=== PATIENT | female | born 1985 | race Caucasian/White ===

== ENCOUNTER 2023-12-03 20:10 | Emergency (ER) | payer OTHER, SELFPAY ==
[2023-12-03 20:12] VITALS: BP 151/114
[2023-12-03 20:37] VITALS: BP 147/99
[2023-12-03] MEDS: ATIVAN 1 MG IV (21:04)
[2023-12-03] MEDS: NSS 1000 IV (21:04)
[2023-12-03] MEDS: PROTONIX IV 80 MG IV (21:04)
[2023-12-03 21:09] VITALS: BP 147/99; BMI 32.3
[2023-12-03 21:15] LABS: % Basophils 0.4 % (0-2); % Immature Granulocytes 0.4 % (0-0.5); % Lymphocytes 7.2 % (20.5-51.1); % Monocytes 3.5 % (1.7-9.3); % Neutrophils 88.5 % (42.2-75.2); Absolute Immature Granulocytes 0.1 10^3/uL (0-0.05); Absolute Lymphocytes 0.8 10^3/uL (1.2-3.4); Absolute Monocytes 0.4 10^3/uL (0.1-0.6); Absolute Neutrophils 9.9 10^3/uL (1.4-6.5); Hematocrit 38.5 % (37.0-47.0); Hemoglobin 14.3 g/dL (12.0-16.0); Mean Corp Hgb Conc. 37.1 g/dL (33.0-37.0); Mean Corpuscular Hgb 31.6 pg (27.0-31.0); Mean Platelet Volume 8.8 fL (7.4-10.4); Nucleated Red Blood Cells % 0 %; Platelet Count 214 10^3/uL (130-400); Red Blood Cell Count 4.53 10^6/uL (4.20-5.40); Red Cell Dist. Width 13.2 % (11.5-14.5); White Blood Cell Count 11.2 10^3/uL (4.8-10.8)
[2023-12-03 21:31] LABS: AST (SGOT) 41 U/L (14-36); Alkaline Phosphatase 127 U/L (38-126); Blood Urea Nitrogen 14 mg/dl (7-17); Calcium 9.3 mg/dl (8.4-10.2); Carbon Dioxide 25 mmol/L (22-30); Chloride 99 mmol/L (98-107); Estimated Creatinine Clearance > 125 ml/min; Glucose 120 mg/dl (70-99); Lipase 46 U/L (23-300); Potassium 3.5 mmol/L (3.5-5.1); Sodium 135 mmol/L (135-145); Total Bilirubin 1.4 mg/dl (0.2-1.3); Total Protein 7.7 g/dl (6.3-8.2); eGFR > 60.00
[2023-12-03 21:40] LABS: ALT (SGPT) 37 U/L (0-35)
[2023-12-03 23:05] VITALS: BP 137/85
--- NOTE | 2023-12-03 23:12 | EDRN ---
Patient resting comfortably with call gomez in reach, states slightly nauseated still but other lynn ok.
--- NOTE | 2023-12-03 23:56 | EDRN ---
Patient concerned about her meds shes taking and missing them because she can't keep things down, patient has drank water since here and requesting more. Dr. Zoila ramirez
[2023-12-04] VITALS: BP 132/83
--- NOTE | 2023-12-04 00:04 | ED.GENMED ---
History of Present Illness
General
Chief Complaint: Withdrawal Symptoms
Source: patient
Exam Limitations: none
Time Seen by Provider: 12/03/23 20:32
Travel History
Have you had any contact with someone who has COVID-19?: No
Do you have any symptoms of coronavirus? Fever > 100 degrees, chills, cough, shortness of breath, sore throat, loss of taste or smell, muscle aches, or headache?: No
History of Present Illness
History of Present Illness:
38-year-old female who has a history of alcoholism who presents after she noted blood streaks in her vomitus. She will states she has been little bit tremulous that she is not had drink of vodka since yesterday. The patient states she tried
drinking little's morning because of vomiting was unable to. Patient admits that she was clean for a few months but began drinking again. She does have a history of GI bleeding in the past and was admitted. No chest pain. No fevers.
Past History
Past History
ED Past Medical History: Asthma, Hypothyroidism and Psychiatric (Anxiety, depression, alcohol abuse)
ED Past Surgical History: None
Social History
Tobacco: Former smoker
Alcohol: Chronic alcoholic
Drug: None
Personal: Single
Living: with family
Employment: Employed
Phy Exam
Physical Exam
Physical Exam:
CONSTITUTIONAL Patient alert and oriented to person, place and time. Well-appearing. Vital signs reviewed.
HEAD atraumatic, normocephalic.
EYES eyelids normal to inspection, Pupils equally round and reactive to light, Extraocular muscles intact, Conjunctiva normal, Sclera normal.
NECK normal range of motion, Trachea midline, no jugular venous distention.
RESPIRATORY CHEST No respiratory distress noted, Chest expansion equal, Bilateral breath sounds clear.
CARDIOVASCULAR regular and tachycardic
ABDOMEN abdomen nontender, Bowel sounds normal. No distention.
BACK normal inspection, no obvious deformities
UPPER EXTREMITY range of motion normal, Motor strength normal, no cyanosis, no edema.
LOWER EXTREMITY range of motion normal, Motor strength normal, no cyanosis, no edema.
NEURO Speech normal, No focal motor deficits, [place] coma scale 15, Memory normal, Cranial Nerves intact to screening exam. Mildly tremulous
SKIN skin warm, dry, and normal in color.
PSYCHIATRIC patient oriented to person place and time, Normal affect.
Course
Orders/Labs/Results
Orders:
Orders
12/03/23 20:46
Pantoprazole [Protonix IV] 80 mg IV NOW STA
12/03/23 20:47
0.9% Sodium Chloride 1000 ml [Nss] 1,000 ml IV BOLUS
Lorazepam [Ativan] 1 mg IV NOW STA
12/03/23 20:59
Complete Blood Count/With Diff Urgent
Comprehensive Metabolic Panel Urgent
Lipase Urgent
Abnormal Lab Results
12/03/23
20:59
WBC 11.2 H 10^3/uL
(4.8-10.8)
MCH 31.6 H pg
(27.0-31.0)
MCHC 37.1 H g/dL
(33.0-37.0)
Abs Immat Gran (auto) 0.1 H 10^3/uL
(0-0.05)
Absolute Neuts (auto) 9.9 H 10^3/uL
(1.4-6.5)
Absolute Lymphs (auto) 0.8 L 10^3/uL
(1.2-3.4)
Neutrophils % 88.5 H %
(42.2-75.2)
Lymphocytes % 7.2 L %
(20.5-51.1)
Glucose 120 H mg/dl
(70-99)
Total Bilirubin 1.4 H mg/dl
(0.2-1.3)
AST 41 H U/L
(14-36)
ALT 37 H U/L
(0-35)
Alkaline Phosphatase 127 H U/L
(38-126)
12/03/23 20:59
12/03/23 20:59
Vital Signs
Initial and Last Documented VS:
Initial Vital Signs
Temp Pulse Resp BP Pulse Ox
98.2 F 110 20 151/114 99
12/03/23 20:12 12/03/23 20:12 12/03/23 20:12 12/03/23 20:12 12/03/23 20:12
Last Documented Vital Signs
Temp Pulse Resp BP Pulse Ox
98.2 F 76 23 137/85 95
12/03/23 20:12 12/03/23 23:15 12/03/23 23:15 12/03/23 23:05 12/03/23 23:15
MDM/Problems Addressed
MDM/Problems Addressed:
Alcohol withdrawal, alcoholic gastritis, vomiting
*Pulse Oximetry
Patient hypoxic: no
*Mastic Man Interpretation
Rate: tachycardiac
Interpretation: abnormal
Rhythm: sinus
*Critical Care Note
Total Time (30-74mins, 75-104mins- exclusive of procedures): Not Applicable
Data Reviewed
Review of Other/Old Records Reveals: Records (Previous endoscopy reviewed from July 2023) and Discharge Summary (Discharge summary reviewed from July 2023)
Source: patient
Further Testing Considered But Not Given:
Consider CT but abdomen benign
Patient Management
Escalation/DeEscalation of care consider admission/obs:
Patient reassessed. Heart rate has normalized. Blood pressure normalized. Patient appears well. I do think she is safe for discharge and outpatient follow-up. The patient has had no vomiting. Will treat with PPI twice daily, antiemetics as
needed and Ativan for withdrawal symptoms. She will follow-up with her PCP and will follow-up with alcohol meetings. I strongly advised no driving or operating heavy machinery while on benzodiazepines. Patient agrees.
ED Attending Note
-
Portions of this chart may have been created with voice recognition software.� Occasional wrong word or��sound alike� substitutions may have occurred due to the inherent limitations of voice recognition software.
Discharge Plan
Departure
Patient Disposition: Home (Routine Discharge)
Date of Disposition: 12/04/23
Time of Disposition: 00:14
Patient with high blood pressure during this ER visit?: No
Discharge Problem:
Acute alcoholic gastritis, Alcohol withdrawal
Instructions: Gastritis, Alcohol Withdrawal (DC)
Prescriptions:
New
pantoprazole [Protonix] 40 mg tablet,delayed release (DR/EC)
40 mg PO BID Qty: 60 0RF
Rx Instructions:
Please take 30 minutes prior to eating or drinking anything in the morning.
ondansetron 4 mg tablet,disintegrating
4 mg PO Q8H PRN (Reason: nausea and vomiting) Qty: 20 0RF
lorazepam 1 mg tablet
1 mg PO TID Qty: 18 0RF
Rx Instructions:
1mg TID x 3 days, then 1mg BID x 3 days, then 1mg daily x 3 days
No Action
levothyroxine 50 MCG tablet
50 mcg PO DAILY AT 0700
sertraline 50 MG tablet
100 mg PO DAILY
Patient Comments:
07/07/23- patient has been using old bottle and know she suppose to be on 25mg daily but she wants to be on 50mg daily and has been taking 50mg daily at home
hydroxyzine HCl 50 mg Tablet
50 mg PO TIDPRN PRN (Reason: anxiety)
Patient Comments:
07/07/23-patient has really old bottle in room, date is wiped off
trazodone 100 mg Tablet
50 - 100 mg PO HSPRN PRN (Reason: sleep)
Patient Comments:
07/07/23-patient has old bottle in room and has one tablet in it, she said she has an older bottle at home with more tablets in it
olanzapine 5 mg Tablet
5 mg PO DAILY
atomoxetine 60 mg Capsule
60 mg PO DAILY
Referrals:
Lea Dumont PA-C [Family Provider] -
Stand Alone Forms: Return to Work
Activity Restrictions/Additional Instructions:
Please see your doctor in the next 2 days for follow-up and reevaluation. Please drink plenty of fluids. Please do not drink alcohol. In addition, do not drive or operate machinery while taking benzodiazepines. Return immediately for shaking,
seizures, change in mental status, hallucinations, intractable vomiting or any other concerns.
Interventions
Interventions:
*Risk Screen - Suicide Last Done: 12/03/23 20:12
*General Assessment Last Done: 12/03/23 20:12
*Neglect/Abuse Screening Last Done: 12/03/23 20:12
ED- Fall Risk Assessment Last Done: 12/03/23 22:13
ED- Neurological Assessment Last Done: 12/03/23 22:13
ED-Psychological Assessment Last Done: 12/03/23 22:13
Discharge Date and Time
Print Language: AZERI
== END 2023-12-04 00:44 | disposition home or self-care (01) ==
LOC: EMR 20:10
PROVIDERS: EMERGENCY PHYSICIAN Emergency Medicine; FAMILY PHYSICIAN Physician Assistant Medical
DX: K29.21 Alcoholic gastritis with bleeding (principal); F10.239 Alcohol dependence with withdrawal, unspecified; R00.0 Tachycardia, unspecified; R11.0 Nausea; E03.9 Hypothyroidism, unspecified; F32.A Depression, unspecified; F41.9 Anxiety disorder, unspecified; J45.909 Unspecified asthma, uncomplicated; Z87.891 Personal history of nicotine dependence
CPT/HCPCS: 99284; 96374; 96375; 96361; 80053; 83690; 85025

== ENCOUNTER 2024-01-07 03:00 | Inpatient (IN) | payer OTHER, SELFPAY ==
[2024-01-06 22:22] VITALS: BP 184/131
--- NOTE | 2024-01-06 22:49 | ED.GENMED ---
History of Present Illness
General
Chief Complaint: Alcohol Problem
Source: patient
Exam Limitations: none
Time Seen by Provider: 01/06/24 22:32
Travel History
Have you had any contact with someone who has COVID-19?: No
Do you have any symptoms of coronavirus? Fever > 100 degrees, chills, cough, shortness of breath, sore throat, loss of taste or smell, muscle aches, or headache?: No
History of Present Illness
History of Present Illness:
This is a 38 year old female that comes in with c/o withdraw symptoms. States that her last drink was at 9am today. States that she drinks Vodka about a bottle daily. States that she know has cold sweats. nausea, vomiting, abd pain, and diarrhea.
State that she is also dizzy. Denies any fever, chest pain, SOB, headache, urinary burning.
Past History
Past History
ED Past Medical History: Asthma, Hypothyroidism and Psychiatric (Anxiety, depression, alcohol abuse, PTSD< ADHD)
ED Past Surgical History: Other (Skin graft right hand. )
Social History
Tobacco: Vaping (Former Cig smoker)
Alcohol: Chronic alcoholic (Daily bottle of Vodka)
Drug: None
Personal:
Living: with family
Employment: Employed
Review of Systems
Review of Systems
All Other Systems: ROS reviewed and negative except as documented in HPI and ROS
Constitutional: Reports other (Cold sweats); Denies fever
EENT: Reports no symptoms
Respiratory: Reports no symptoms; Denies cough or trouble breathing
Cardiac: Reports no symptoms; Denies chest pain
ABD/GI: Reports abdominal pain, nausea, vomiting and diarrhea
: Reports no symptoms; Denies dysuria, frequency or urgency
Musculoskeletal: Reports no symptoms
Skin: Reports no symptoms
Neurological: Reports dizzy; Denies headache
Psychiatric: Reports no symptoms
Phy Exam
General Physical Exam
General Presentation: no apparent distress
General age: appears stated age
General Skin: warm and dry
General Habitus: normal
General Mental: alert
General Hydration: appears well hydrated
ENT Exam
ENT Exam: TM's normal, pharynx normal and neck supple
Eye Exam
Eye Exam: EOMI
Cardiovascular Exam
Cardiovascular Exam: regular rate/rhythm, no edema, no murmur and normal peripheral pulses
Pulmonary Exam
Pulmonary Exam: lungs clear, no respiratory distress, no rales, chest non tender, no crackles, no rhonchi, no wheezing and no cough
Gastrointestinal Exam
Gastrointestinal Exam: soft, no organomegaly, no pulsatile mass, non distended, tender (Generalized tenderness with palpation) and other (Hypoactive bowel sounds)
Musculoskeletal Exam
Musculoskeletal Exam: full ROM and no edema
Skin Exam
Skin Exam: normal color, warm/dry, no rash and no petechia
Psychiatric Exam
Psychiatric Exam: anxious
Scores
Withdrawal Assessment of Alcohol
Withdrawal Assessment Completed?: Yes
Nausea and Vomiting: Constant nausea, frequent dry heaves and vomiting
Tactile Disturbances: None
Tremor: Not visible, but can be felt fingertip to fingertip
Auditory Disturbances: Not present
Paroxysmal Sweats: No sweat visible
Visual Disturbances: Not present
Anxiety: Moderately anxious, or guarded, so anxiety is inferred
Headache, Fullness in Head: Not present
Agitation: Normal activity
Orientation and clouding of sensorium: Oriented and can do serial additions
Total CIWA Score: 12
Alcohol Withdrawal Medication Recommendation: Equal to MSAS Score 5-7. Lorazepam 1mg IV or PO NOW & re-assess q2hrs
Course
Orders/Labs/Results
Orders:
Orders
01/06/24 22:47
0.9% Sodium Chloride 1000 ml [Nss] 1,000 ml IV BOLUS
Ondansetron Injectable [Zofran] 4 mg IV NOW STA
Test Result ONCE
01/06/24 22:49
Lorazepam [Ativan] 0.5 mg IV NOW STA
01/06/24 22:50
Pantoprazole [Protonix IV] 40 mg IV NOW STA
01/06/24 23:02
Alcohol Urgent
Complete Blood Count/With Diff Urgent
Comprehensive Metabolic Panel Urgent
HCG, Serum Qualitative Screen Urgent
Lipase Urgent
01/06/24 23:18
Add On- LAB Urgent
Tests Added?: Alcohol
01/06/24 23:31
Diphenhydramine [Benadryl] 25 mg IV NOW STA
01/07/24 00:14
Prochlorperazine [Compazine] 5 mg IV NOW STA
01/07/24 00:29
Lorazepam [Ativan] 1 mg IV NOW STA
01/07/24 00:31
Lorazepam [Ativan] 2 mg .ROUTE .STK-MED ONE
Lorazepam [Ativan] 2 mg .ROUTE .STK-MED ONE
01/07/24 02:30
Admit/Transfer Patient As Directed
Co-Sign Provider:
Level of Care: Inpatient admission
Assign to:: Telemetry
Physician / Group: Larry
Diagnosis: Alcohol Withdrawal
Reason for Telemetry: Arrhythmia
Date to Stop Telemetry: 01/10/24
Time to Stop Telemetry: 11:00
Reason for Hospitalization: Alcohol Withdrawal
Expected length of stay greater than two midnights?: Yes
ELOS- Estimated Length of Stay in days: 2
I certify the patient meets the requirements for IP care: Yes
01/07/24 02:31
Code Status As Directed
Resuscitation Status: Full Code
01/10/24 11:00
DC Protocol for Telemetry ONCE
Abnormal Lab Results
01/06/24
23:02
MCH 32.4 H pg
(27.0-31.0)
Absolute Lymphs (auto) 0.7 L 10^3/uL
(1.2-3.4)
Immature Gran % 0.6 H %
(0-0.5)
Neutrophils % 78.9 H %
(42.2-75.2)
Lymphocytes % 12.9 L %
(20.5-51.1)
Glucose 136 H mg/dl
(70-99)
AST 122 H U/L
(14-36)
ALT 69 H U/L
(0-35)
Alkaline Phosphatase 131 H U/L
(38-126)
Total Protein 8.5 H g/dl
(6.3-8.2)
Albumin 5.4 H g/dl
(3.5-5.0)
01/06/24 23:02
01/06/24 23:02
glucose nonfasting. AST/ALT elevation (chronic alcoholic), alk phos elevation. Total protein slightly elevated. Albumin slightly elevated. Lipase normal at 72, HCG negative. Alcohol level negative.
Vital Signs
Initial and Last Documented VS:
Initial Vital Signs
Temp Pulse Resp BP Pulse Ox
99 F 118 26 184/131 98
01/06/24 22:22 01/06/24 22:22 01/06/24 22:22 01/06/24 22:22 01/06/24 22:22
Last Documented Vital Signs
Temp Pulse Resp BP Pulse Ox
99 F 92 22 184/131 98
01/06/24 22:22 01/07/24 02:30 01/07/24 02:30 01/06/24 22:22 01/06/24 22:22
MDM/Problems Addressed
Differential Diagnosis Includes:
Alcohol withdraw, Pancreatitis
MDM/Problems Addressed:
This is a 38 year old female that comes in with c/o alcohol withdraw. States that her last drink was at 9am today. States that she has had cold sweats and been vomiting.
Will check labs, IV fluids and antiemetics.
Back into see patient. Patient continues with vomiting. Will admit for alcohol withdraw. Patient was seen by Nelly and she only wants to do out patient treatment for her alcohol abuse. Hospitalist notified about admission.
Chronic conditions affecting care:
Chronic alcoholic,
Acute Exacerbation and/or Progression of Chronic Illness:
Alcohol abuse
*Pulse Oximetry
Patient hypoxic: no
*EKG
Interpreted by ED Provider?: NA
Rate: EKG- N/A
*Critical Care Note
Total Time (30-74mins, 75-104mins- exclusive of procedures): Not Applicable
ED Attending Note
-
Portions of this chart may have been created with voice recognition software.� Occasional wrong word or��sound alike� substitutions may have occurred due to the inherent limitations of voice recognition software.
Discharge Plan
Departure
Patient Disposition: Admit
Date of Disposition: 01/07/24
Time of Disposition: 01:37
Admit to: Telemetry
Presentation/result/management discussed w/ accepting MD/DO: Hospitalist
Patient with high blood pressure during this ER visit?: Yes
Condition: Good
Covid-19: Not Applicable
Discharge Problem:
Alcohol withdrawal, Nausea & vomiting
Interventions
Interventions:
*Risk Screen - Suicide Last Done: 01/06/24 22:22
*General Assessment Last Done: 01/06/24 22:22
*Neglect/Abuse Screening Last Done: 01/06/24 22:22
ED- Fall Risk Assessment Last Done: 01/06/24 23:32
ED- Neurological Assessment Last Done: 01/06/24 23:32
ED-Psychological Assessment Last Done: 01/06/24 23:32
[2024-01-06] MEDS: NSS 1000 IV (23:08)
[2024-01-06] MEDS: ZOFRAN 4 MG IV (23:09)
[2024-01-06 23:11] LABS: % Basophils 0.7 % (0-2); % Eosinophils 0.2 % (0-6); % Immature Granulocytes 0.6 % (0-0.5); % Lymphocytes 12.9 % (20.5-51.1); % Monocytes 6.7 % (1.7-9.3); % Neutrophils 78.9 % (42.2-75.2); Absolute Lymphocytes 0.7 10^3/uL (1.2-3.4); Absolute Monocytes 0.4 10^3/uL (0.1-0.6); Absolute Neutrophils 4.2 10^3/uL (1.4-6.5); Hematocrit 39.2 % (37.0-47.0); Hemoglobin 14.5 g/dL (12.0-16.0); Mean Corpuscular Hgb 32.4 pg (27.0-31.0); Mean Corpuscular Volume 87.7 fL (81.0-99.0); Mean Platelet Volume 9.2 fL (7.4-10.4); Nucleated Red Blood Cells % 0 %; Platelet Count 210 10^3/uL (130-400); Red Blood Cell Count 4.47 10^6/uL (4.20-5.40); Red Cell Dist. Width 13.9 % (11.5-14.5); White Blood Cell Count 5.3 10^3/uL (4.8-10.8)
[2024-01-06] MEDS: PROTONIX IV 40 MG IV (23:14)
[2024-01-06] MEDS: ATIVAN 0.5 MG IV (23:14)
[2024-01-06 23:20] LABS: HCG, Serum Qualitative Screen Negative
[2024-01-06 23:24] LABS: ALT (SGPT) 69 U/L (0-35); AST (SGOT) 122 U/L (14-36); Albumin 5.4 g/dl (3.5-5.0); Alkaline Phosphatase 131 U/L (38-126); Blood Urea Nitrogen 10 mg/dl (7-17); Calcium 10.1 mg/dl (8.4-10.2); Carbon Dioxide 23 mmol/L (22-30); Chloride 101 mmol/L (98-107); Glucose 136 mg/dl (70-99); Lipase 72 U/L (23-300); Potassium 3.5 mmol/L (3.5-5.1); Sodium 142 mmol/L (135-145); Total Bilirubin 0.9 mg/dl (0.2-1.3); Total Protein 8.5 g/dl (6.3-8.2); eGFR > 60.00
[2024-01-06] MEDS: BENADRYL 25 MG IV (23:38)
[2024-01-06 23:47] LABS: Alcohol None Detected
[2024-01-07] VITALS (15 sets, daily range): BP systolic 128–153; BP diastolic 83–110; PULSE 111–122; BMI 32.4
[2024-01-07] MEDS: COMPAZINE 5 MG IV (00:17)
[2024-01-07] MEDS: ATIVAN 1 MG IV ×2 (00:32→06:30)
--- NOTE | 2024-01-07 02:34 | HPS.HSE ---
Family Physician
-
Family Physician: [facility] UNKNOWN - PT NOT
Chief Complaint
-
N/V
History of Present Illness
Patient is a 38y F with PMH significant for anxiety / depression, asthma and hypothyroidism who presents to ED complaining of N/V. Patient states that she started with N/V yesterday and it has been persistent since that time. She has some mild
abdominal discomfort which she attributes to the frequent vomiting. She denies any bloody or blood-streaked emesis. Patient reports diaphoresis, tremulousness, lightheadedness.
Patient notes that she drinks about 1 bottle of vodka daily. Her last drink was around 9 AM this morning.
Medical History
Past Medical History
Past Medical History: Reports Other
Additional Past Medical History:
Anxiety / Depression
ADHD
PTSD
Asthma
Hypothyroidism
Past Surgical History: Reports Other
Additional Past Surgical History:
R hand surgery skin graft
[place] teeth
L arm surgery
Uvula biopsy
Social History
Tobacco: Vaping
Alcohol: Daily (Half to 1 bottle daily for 9 years. 1 bottle / day for the past 2 weeks.)
Family History
Family History: Not pertinent
Allergies / Home Medications
Allergies reflects when Allergies were last updated in [facility].
Home Medications with original date entered in [facility]
Allergy/Medication List:
Allergies
Allergy/AdvReac Type Severity Reaction Status Date / Time
No Known Allergies Allergy Verified 01/13/22 17:32
Home Medications
levothyroxine 50 mcg tablet 50 mcg PO DAILY AT 0700 Thyroid 12/02/21
sertraline 50 mg tablet 100 mg PO DAILY Mental Health/Anxiety 12/02/21
trazodone 100 mg tablet 150 mg PO HSPRN PRN sleep 07/07/23
atomoxetine 60 mg capsule 60 mg PO DAILY 12/03/23
olanzapine 5 mg tablet 5 mg PO DAILY 12/03/23
Review of Systems
-
History Source: Patient
A 12 point ROS was completed and negative except as noted: Yes
Constitutional: Reports Fatigue; Denies Fever or Chills
EENT: Denies Sore Throat
Respiratory: Denies Cough or Trouble Breathing
Cardiac: Denies Chest Pain or Palpitations
Abdomen/GI: Reports Abdominal Pain, Nausea and Vomiting; Denies Diarrhea, Constipated, Bloody Stools or Black Stools
: Denies Dysuria or Frequency
Musculoskeletal: Denies Joint Pain or Edema
Neurological: Reports Dizzy and Headache
Physical Exam
Vital Signs
Vital Signs
Temp Pulse Resp BP Pulse Ox
99 F 92 22 184/131 98
01/06/24 22:22 01/07/24 02:30 01/07/24 02:30 01/06/24 22:22 01/06/24 22:22
Physical Exam
General: Other (38y F in no acute distress.)
HEENT: Moist mucous membranes, PERRLA and Other (Flushed appearance.)
Respiratory: Clear; No Wheezes, Rales or Rhonchi
Cardiac: S1/S2 and Regular Rhythm; No Murmur
GI: Soft, Non Distended, Normal Bowel Sounds and Other (Mild epigastric tenderness.)
Musculoskeletal: No Clubbing, No Cyanosis and No Edema
Neuro: AO x 3
Laboratory Results
-
01/06/24 23:02
01/06/24 23:02
Laboratory Results
Total Bilirubin 0.9 mg/dl (0.2-1.3) 01/06/24 23:02
AST 122 U/L (14-36) H 01/06/24 23:02
ALT 69 U/L (0-35) H 01/06/24 23:02
Alkaline Phosphatase 131 U/L (38-126) H 01/06/24 23:02
Lipase 72 U/L (23-300) 01/06/24 23:02
Impression/Plan
-
A/P: Patient is a 38y F with PMH significant for anxiety / depression, hypothyroidism and alcohol use disorder who presents to ED complaining of N/V x 24 hours.
Alcohol Use Disorder
Alcohol Withdrawal
N/V secondary to the above
Abnormal LFTs secondary to the above
- Admit for further evaluation and treatment.
- Normal lipase.
- IVF support, antiemetics, etc.
- Follow for symptoms of withdrawal and treat with PRN BZDs.
- Thiamine, folate, MVI replacement.
- Follow for clinical improvement.
Anxiety / Depression
PTSD
ADHD
- Continue current psychotropic med regimen.
- Recommend follow-up with formal psychotherapy as an outpatient.
Hypothyroidism
- Continue current T4 replacement.
- Update TFTs.
Elevated BP
- Likely secondary to acute illness / withdrawal.
- Hydralazine PRN for now.
- Follow for improvement with control of withdrawal symptoms.
- Add standing antihypertensive medication if needed.
DVT Prophylaxis: SCDs
Code Status: Full
[2024-01-07] MEDS: D5/0.9% SODIUM CHLORIDE 1000 IV ×3 (05:55→20:30)
[2024-01-07] MEDS: SYNTHROID 50 MCG PO (05:55)
[2024-01-07] MEDS: NSS (PRESERVATIVE FREE) 0.5 ML IV (06:31)
[2024-01-07 06:35] LABS: Hematocrit 35.4 % (37.0-47.0); Hemoglobin 12.9 g/dL (12.0-16.0); Mean Corp Hgb Conc. 36.4 g/dL (33.0-37.0); Mean Corpuscular Hgb 32.7 pg (27.0-31.0); Mean Corpuscular Volume 89.6 fL (81.0-99.0); Mean Platelet Volume 9.3 fL (7.4-10.4); Platelet Count 181 10^3/uL (130-400); Red Blood Cell Count 3.95 10^6/uL (4.20-5.40); Red Cell Dist. Width 13.9 % (11.5-14.5); Urine Albumin Trace (Neg - Trace); Urine Bilirubin Negative (Negative); Urine Character Clear (Clear); Urine Color Yellow; Urine Glucose Negative (Negative); Urine Ketone Trace (Negative); Urine Leukocyte Trace (Negative); Urine Nitrite Negative (Negative); Urine Occult Blood 1+ (Negative); Urine Urobilinogen 1+ (Neg - 1+); White Blood Cell Count 6.8 10^3/uL (4.8-10.8)
[2024-01-07 06:48] LABS: AST (SGOT) 96 U/L (14-36); Albumin 4.7 g/dl (3.5-5.0); Alkaline Phosphatase 99 U/L (38-126); Amphetamines Negative (Negative); Barbiturates Negative (Negative); Benzodiazepines Positive (Negative); Blood Urea Nitrogen 9 mg/dl (7-17); Buprenorphine Negative (Negative); Calcium 9.2 mg/dl (8.4-10.2); Carbon Dioxide 24 mmol/L (22-30); Chloride 100 mmol/L (98-107); Cocaine Negative (Negative); Direct Bilirubin 0.4 mg/dl (0.0-0.4); Glucose 106 mg/dl (70-99); Magnesium 1.1 mg/dl (1.6-2.3); Marijuana Negative (Negative); Methadone Negative (Negative); Methamphetamines Negative (Negative); Opiates Negative (Negative); Phencyclidine Negative (Negative); Phosphorus 3.4 mg/dl (2.5-4.5); Potassium 3.6 mmol/L (3.5-5.1); Sodium 137 mmol/L (135-145); Total Bilirubin 1.1 mg/dl (0.2-1.3); Tricyclic Antidepressants Negative (Negative); eGFR > 60.00
[2024-01-07 06:58] LABS: ALT (SGPT) 62 U/L (0-35)
[2024-01-07 07:03] LABS: Fentanyl, Urine Negative (Negative)
[2024-01-07 07:13] LABS: TSH Reflex To Free T4 1.53 uIU/ml (0.47-4.68)
[2024-01-07 07:26] LABS: Urine Amorphous Seen; Urine Squamous Cell 26-30 /LPF (Few)
[2024-01-07] MEDS: ZYPREXA 5 MG PO (08:46)
[2024-01-07] MEDS: FOLVITE 1 MG PO (08:46)
[2024-01-07] MEDS: THIAMINE INJECTION 200 MG IV ×2 (08:46→20:30)
[2024-01-07] MEDS: ZOLOFT 100 MG PO (08:46)
--- NOTE | 2024-01-07 10:47 | W.PN.UPDATE ---
Update Note
Progress Note Update
Nonbillable note
Lab/images/notes reviewed
patient examined briefly
Nausea and vomiting -does report having history of alcoholic gastritis. Patient said had EGD in the hospital although no records on chart. Denies of having history of bleed/PUD. Maintain on empiric IV Protonix. Nausea improved and advancing diet
to regular. Continue symptomatic care.
Alcohol withdrawal -drinks 1 bottle of vodka every day. Last drink yesterday morning. Currently not having any tremor/tachycardia/hypertension. Continue on MSAS/Ativan protocol. MSAS score remains low. Got total 2 and half milligram of Ativan
overnight. Patient have undergone alcohol rehab in the past and stated that [facility] called last night and plan to do an outpatient alcohol rehab follow-up. Case management to confirm plan.
[2024-01-07] MEDS: PROTONIX IV 40 MG IV (12:12)
--- NOTE | 2024-01-07 13:47 | CM ---
Cm met with patient in room. Patient confirmed demographics. Patient lives alone. Patient is agreeable to outpatient D and A treatment. CM spoke with [facility] and they will meet with patient today to offer resources. CM will await updated from [facility].
--- NOTE | 2024-01-07 16:20 | CM ---
Rafael from [facility] in to see patient today.
[2024-01-07] MEDS: ZOFRAN 4 MG IV (18:09)
[2024-01-07] MEDS: ATIVAN 1 MG PO (20:34)
[2024-01-07] MEDS: DESYREL 150 MG PO (22:32)
[2024-01-08] VITALS (7 sets, daily range): BP systolic 118–153; BP diastolic 83–106; PULSE 76–112; BMI 32.5
[2024-01-08] MEDS: SYNTHROID 50 MCG PO (05:39)
[2024-01-08 06:08] LABS: Hematocrit 33.2 % (37.0-47.0); Mean Corp Hgb Conc. 36.1 g/dL (33.0-37.0); Mean Corpuscular Hgb 32.5 pg (27.0-31.0); Mean Platelet Volume 9.6 fL (7.4-10.4); Platelet Count 147 10^3/uL (130-400); Red Blood Cell Count 3.69 10^6/uL (4.20-5.40); Red Cell Dist. Width 13.6 % (11.5-14.5); White Blood Cell Count 4.1 10^3/uL (4.8-10.8)
[2024-01-08 06:45] LABS: Blood Urea Nitrogen 5 mg/dl (7-17); Calcium 8.3 mg/dl (8.4-10.2); Carbon Dioxide 27 mmol/L (22-30); Chloride 101 mmol/L (98-107); Estimated Creatinine Clearance > 125 ml/min; Glucose 97 mg/dl (70-99); Magnesium 1.2 mg/dl (1.6-2.3); Potassium 2.9 mmol/L (3.5-5.1); Sodium 137 mmol/L (135-145); eGFR > 60.00
[2024-01-08] MEDS: D5/0.9% SODIUM CHLORIDE 1000 IV (08:49)
[2024-01-08] MEDS: PROTONIX IV 40 MG IV (08:49)
[2024-01-08] MEDS: ZOLOFT 100 MG PO (08:50)
[2024-01-08] MEDS: ZYPREXA 5 MG PO (08:50)
[2024-01-08] MEDS: FOLVITE 1 MG PO (08:50)
[2024-01-08] MEDS: THIAMINE INJECTION 200 MG IV ×2 (08:50→20:43)
[2024-01-08] MEDS: NSS (PRESERVATIVE FREE) 10 ML IV (08:50)
--- NOTE | 2024-01-08 08:59 | W.PN.HOSP.TC ---
Today's Communication/Plan
-
Continue alcohol withdrawal. Replete electrolytes. Psych evaluation.
Assessment / Plan
Assessment / Plan
Physical exam:
General: Well Developed, Well Nourished and No Apparent Distress
HEENT: Normocephalic, Atraumatic and Moist Mucous Membranes
Respiratory: Clear to Auscultation; Negative Wheezes, Rales or Rhonchi
Cardiac: Regular Rhythm and S1/S2
GI: Soft, Nontender and Nondistended
Musculoskeletal: No Clubbing, No Cyanosis and No Edema
Neuro: Awake, Alert and Oriented
Psych: Calm
A/P:
Alcohol Use Disorder
Alcohol Withdrawal
N/V secondary to the above
Abnormal LFTs secondary to the above
- Admit for further evaluation and treatment.
- Normal lipase.
- IVF support, antiemetics, etc.
- Follow for symptoms of withdrawal and treat with PRN BZDs.
- Thiamine, folate, MVI replacement.
- Follow for clinical improvement.
Hypokalemia
Replete IV and oral
Trend in a.m.
Hypomagnesemia
Replete 4 g of magnesium sulfate today IV.
Check mag in a.m.
Alcoholic gastritis
PPI
Continue regular diet
Evaluate for symptoms
Consider outpatient GI referral
Anxiety / Depression
PTSD
ADHD
- Continue current psychotropic med regimen.
- Recommend follow-up with formal psychotherapy as an outpatient.
-Patient tells me that she wants psychiatry to see her while in the hospital since she has been on a waiting list for quite some time as outpatient and feels she needs some help sooner.
Hypothyroidism
- Continue current T4 replacement.
-TSH 1.53
Elevated BP
- Likely secondary to acute illness / withdrawal.
- Hydralazine PRN for now.
- Follow for improvement with control of withdrawal symptoms.
- Add standing antihypertensive medication if needed.
DVT Prophylaxis: SCDs
Code Status: Full
Anticipated Discharge: 24 - 48 hours
Subjective/Interval History
-
Date of Service: January 08, 2024
Patient has less tremors, no nausea, afebrile.
Objective Data
-
Labs:
Laboratory Results
01/08/24
05:07
WBC 4.1 L
Hgb 12.0
Hct 33.2 L
Plt Count 147
Sodium 137
Potassium 2.9 L
Chloride 101
Carbon Dioxide 27
BUN 5 L
Creatinine 0.5 L
Glucose 97
Calcium 8.3 L
Vital Signs:
Vital Signs
Temp Pulse Resp BP Pulse Ox
98.9 F 78 16 118/85 97
01/08/24 07:36 01/08/24 07:36 01/08/24 07:36 01/08/24 07:36 01/08/24 07:36
I&O
01/07/24 01/08/24 01/09/24
06:59 06:59 06:59
Intake Total 3360 / 3360
Balance 3360 / 3360
[2024-01-08] MEDS: REFRESH CELLUVISC GEL 1 DROPS OPHTH (11:31)
[2024-01-08] MEDS: ATARAX 100 MG PO (12:27)
[2024-01-08] MEDS: FLEXERIL 5 MG PO ×2 (12:28→20:42)
--- NOTE | 2024-01-08 15:26 | CS.PSYCHR ---
Consult Summary - Psychiatry
-
Pt is a 38 yo female with PMH of asthma and hypothyroidism who presented to ED complaining of persistent N/V onset the day before admission, as well as diaphoresis, tremulousness, lightheadedness.
Patient reported she drinks about 1 bottle of vodka daily for the past couple weeks, with the last drink the morning prior to admission. Pt seen sitting up in bed, cooperative, answering questions, in no acute distress. She c/o low
motivation/energy. Pt states she has been on Zoloft for about 8 years, no other antidepressant. Pt states she was in a dual dx/rehab facility from Jul 2023 to Sep 2023, was prescribed medications for possible Bipolar d/o, but did not follow up
with outpatient treatment. Pt states Saba Jaramillo is helping her connect to treatment, possibly at [facility]. Pt denies recent paresh, denies SI.
PMH: as above
Psych Hx: depression, on Zoloft for approx 8 years. Reportedly diagnosed with PTSD and ADHD. Prescribed Zoloft, Trazodone, Strattera, Zyprexa, Vistaril as needed
Dual dx/rehab Jul 2023 to Sep 2023
SH: pt lives alone, has children age 6 and 9, noted with her on weekends. Reported daily alcohol use
MSE: alert, oriented, calm, cooperative, with good eye contact. No agitation. Speech coherent, thought clear, no signs of psychosis. Mood reportedly dysphoric, affect appears stable. Denies SI. Insight limited to fair
Imp: Unspecified Depressive d/o
Alcohol Use d/o
Rec: Outpatient dual dx treatment when medically cleared
Continue current psych meds; pt was given education on additional medication options when medically stable/ out of immediate risk of alcohol withdrawal
will follow
[2024-01-08] MEDS: D5/0.9% SODIUM CHLORIDE IV (16:01)
--- NOTE | 2024-01-08 16:15 | CM ---
Case management following for d/c planning
Alcohol withdrawal
Psych evaluation today
Spoke with Rafael from [facility] - was given outpatient rehab resources
Plan - anticipate home with outpatient services when medially ready
[2024-01-08] MEDS: MAGNESIUM SULFATE 100 IV (16:20)
[2024-01-08] MEDS: KCL 270 MEQ IV (16:22)
[2024-01-08] MEDS: KCL 40 MEQ PO ×2 (16:28→17:49)
[2024-01-08] MEDS: DESYREL 150 MG PO (20:47)
[2024-01-09 03:10] VITALS: BP 135/95
[2024-01-09] MEDS: SYNTHROID 50 MCG PO (05:43)
[2024-01-09 06:00] VITALS: BMI 32.6
[2024-01-09 07:14] LABS: Hematocrit 34.3 % (37.0-47.0); Hemoglobin 12.3 g/dL (12.0-16.0); Mean Corp Hgb Conc. 35.9 g/dL (33.0-37.0); Mean Platelet Volume 9.5 fL (7.4-10.4); Platelet Count 150 10^3/uL (130-400); Red Blood Cell Count 3.73 10^6/uL (4.20-5.40); Red Cell Dist. Width 13.7 % (11.5-14.5); White Blood Cell Count 4.8 10^3/uL (4.8-10.8)
[2024-01-09 07:30] VITALS: BP 155/97
[2024-01-09] MEDS: NSS (PRESERVATIVE FREE) 10 ML IV (07:41)
[2024-01-09] MEDS: THIAMINE INJECTION 200 MG IV (07:41)
[2024-01-09] MEDS: PROTONIX IV 40 MG IV (07:41)
[2024-01-09] MEDS: FOLVITE 1 MG PO (07:42)
[2024-01-09] MEDS: ZYPREXA 5 MG PO (07:42)
[2024-01-09] MEDS: ZOLOFT 100 MG PO (07:42)
[2024-01-09 07:48] LABS: ALT (SGPT) 48 U/L (0-35); AST (SGOT) 63 U/L (14-36); Albumin 4.1 g/dl (3.5-5.0); Alkaline Phosphatase 84 U/L (38-126); Blood Urea Nitrogen 5 mg/dl (7-17); Calcium 8.5 mg/dl (8.4-10.2); Carbon Dioxide 25 mmol/L (22-30); Chloride 105 mmol/L (98-107); Estimated Creatinine Clearance > 125 ml/min; Glucose 96 mg/dl (70-99); Magnesium 2.2 mg/dl (1.6-2.3); Potassium 3.7 mmol/L (3.5-5.1); Sodium 138 mmol/L (135-145); Total Bilirubin 0.9 mg/dl (0.2-1.3); Total Protein 6.6 g/dl (6.3-8.2); eGFR > 60.00
[2024-01-09] MEDS: FLEXERIL 5 MG PO (07:52)
--- NOTE | 2024-01-09 08:16 | W.PN.HOSP.TC ---
Today's Communication/Plan
-
Discharge planning today.
Assessment / Plan
Assessment / Plan
Physical exam:
General: Well Developed, Well Nourished and No Apparent Distress
HEENT: Normocephalic, Atraumatic and Moist Mucous Membranes
Respiratory: Clear to Auscultation; Negative Wheezes, Rales or Rhonchi
Cardiac: Regular Rhythm and S1/S2
GI: Soft, Nontender and Nondistended
Musculoskeletal: No Clubbing, No Cyanosis and No Edema
Neuro: Awake, Alert and Oriented
Psych: Calm
A/P:
Alcohol Use Disorder
Alcohol Withdrawal
N/V secondary to the above
Abnormal LFTs secondary to the above
- Normal lipase.
- IVF support, antiemetics, etc.
- Follow for symptoms of withdrawal and treat with PRN BZDs.
- Thiamine, folate, MVI replacement.
- Follow for clinical improvement. Patient ready for discharge today
Hypokalemia
Replete IV and oral
Trend in a.m.
Hypomagnesemia
Replete 4 g of magnesium sulfate today IV.
Check mag in a.m.
Alcoholic gastritis
PPI
Continue regular diet
Evaluate for symptoms
Consider outpatient GI referral
Anxiety / Depression
PTSD
ADHD
- Continue current psychotropic med regimen.
- Recommend follow-up with formal psychotherapy as an outpatient.
-Patient tells me that she wants psychiatry to see her while in the hospital since she has been on a waiting list for quite some time as outpatient and feels she needs some help sooner. Psychiatry consult appreciated.
Hypothyroidism
- Continue current T4 replacement.
-TSH 1.53
Elevated BP
- Likely secondary to acute illness / withdrawal.
- Hydralazine PRN for now.
- Follow for improvement with control of withdrawal symptoms.
- Add standing antihypertensive medication if needed.
DVT Prophylaxis: SCDs
Code Status: Full
Anticipated Discharge: Today
Subjective/Interval History
-
Date of Service: January 09, 2024
No new complaints.
Objective Data
-
Labs:
Laboratory Results
01/09/24
06:37
WBC 4.8
Hgb 12.3
Hct 34.3 L
Plt Count 150
Sodium 138
Potassium 3.7 D
Chloride 105
Carbon Dioxide 25
BUN 5 L
Creatinine 0.5 L
Glucose 96
Calcium 8.5
Total Bilirubin 0.9
AST 63 H
ALT 48 H
Alkaline Phosphatase 84
Vital Signs:
Vital Signs
Temp Pulse Resp BP Pulse Ox
98.3 F 89 18 155/97 95
01/09/24 07:30 01/09/24 07:30 01/09/24 07:30 01/09/24 07:30 01/09/24 07:30
I&O
01/08/24 01/09/24 01/10/24
06:59 06:59 06:59
Intake Total 3360 / 3360 3840 / 3840
Balance 3360 / 3360 3840 / 3840
--- NOTE | 2024-01-09 11:13 | W.PN.UPDATE ---
Update Note
Progress Note Update
Patient seen at bedside, chart reviewed, discussed with staff. Patient reports doing okay today, no withdrawal symptoms reported. She tells me she is not sleeping well. She did take Trazodone last night but does not feel this had any benefit. She
does report having symptoms of intermittent insomnia at home and Trazodone has been helpful but she does not take all the time. Her dose is currently 150mg and a lower dose could be more helpful for sleep. Patient has received information for [facility] and is planning to see as OP once medically stable. She tells me 'I miss the high of being manic where I get things done and now I have no motivation and hate myself for it'. She states she is not crying and does not feel depressed but
doesn't feel any motivation. She has been taking Zyprexa in AM which could be causing daytime sedation leading to lack of motivation. She asks about Wellbutrin which in my opinion is not the best option given her ETOH abuse and risk for withdrawal
currently. I do believe a medication adjustment may be possible but not necessarily in the context of a medical hospitalization. Dual diagnosis treatment, either inpatient or outpatient would be most beneficial at this time. I would lower the dose
of Trazodone to see if this offers a better benefit for sleep.
Impression/Plan: Unspecified depressive disorder; Alcohol use disorder - MSAS protocol in place, will reduce Trazodone to 100mg PRN for sleep, change Zyprexa to HS rather than in AM, psych to follow
[2024-01-09 11:30] VITALS: BP 135/94; BP 137/91; BP 143/88; PULSE 64; PULSE 67; PULSE 74
--- NOTE | 2024-01-09 11:30 | W.DCSUMMARY ---
Discharge Summary
Discharge Data
Date of Admission: 01/07/24
Date of Discharge: 01/09/24
-
Pending Results: No
Hospital Course
Patient 38 years old female with history of alcohol use disorder presented to the hospital with alcoholic gastritis and alcohol withdrawal. Patient was placed on alcohol withdrawal protocol. Patient did well and requested to go home since she does
not feel she is actively withdrawing at the moment and has not required much of benzodiazepines either. She was seen by psychiatry during this hospital stay by patient request. She had some hypokalemia and hypomagnesemia and her electrolytes were
replaced accordingly. Patient otherwise hemodynamically stable. She is asymptomatic. She is going to be discharged in stable condition today.
Discharge duration: 32 minutes
Discharge Plan
-
Patient Disposition: Home (Routine Discharge)
Discharge Diagnosis/Procedures: Alcohol use disorder. Alcohol withdrawal. Depression. Hypokalemia. Hypomagnesemia. Gastritis.
Diet: Low Cholesterol
Activity: As tolerated
Driving Restrictions: As prior to admission
Blood Work: Please PCP to order CBC, CMP, magnesium within 1 week
Stand Alone Forms: Return to Work
Referrals:
Primary care, provider [Other] (See less than 1 week)
Prescriptions:
New
pantoprazole [Protonix] 40 mg tablet,delayed release (DR/EC)
40 mg PO DAILY Qty: 30 0RF
Continued
levothyroxine 50 MCG tablet
50 mcg PO DAILY AT 0700
sertraline 50 MG tablet
100 mg PO DAILY
Patient Comments:
07/07/23- patient has been using old bottle and know she suppose to be on 25mg daily but she wants to be on 50mg daily and has been taking 50mg daily at home
olanzapine 5 mg Tablet
5 mg PO DAILY
atomoxetine 60 mg Capsule
60 mg PO DAILY
gabapentin 600 mg tablet
600 mg PO TID PRN (Reason: mild pain)
norethindrone ac-eth estradiol [Junel 1.5/30 (21)] 1.5-30 mg-mcg tablet
1 tab PO DAILY
methocarbamol 750 mg tablet
1,500 mg PO BID PRN (Reason: mild-moderate pain)
hydroxyzine pamoate 50 mg capsule
100 mg PO BID PRN (Reason: anxiety) Qty: 14 0RF
Changed
trazodone 100 mg Tablet
100 mg PO HSPRN PRN (Reason: sleep) Qty: 0 0RF
Patient Comments:
07/07/23-patient has old bottle in room and has one tablet in it, she said she has an older bottle at home with more tablets in it
Discharge Orders:
Discharge Patient (As Directed); Ordered 01/09/24
Ordered By: Juan Diego Lloyd
Discharge Date and Time
Discharge Date/Time: 01/09/24 12:20
Print Language: ISRAELI
--- NOTE | 2024-01-09 12:18 | PTCARENOTE ---
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 Work note printed. Patient offered wheelchair but she declined. Patient left floor ambulating with steady gait.
--- NOTE | 2024-01-09 12:23 | CM ---
Pt for discharge today
Has ride home
Will follow up with outpatient alcohol rehab
Plan - home no needs
== END 2024-01-09 12:20 | disposition home or self-care (01) | DRG 897 ==
LOC: 3 WEST ACU 03:00
PROVIDERS: Clinical Nurse Specialist Family Health; Hospitalist; ADMITTING PHYSICIAN Hospitalist; ATTENDING PHYSICIAN Hospitalist; CONSULT PHYSICIAN Psychiatry & Neurology Psychiatry; EMERGENCY PHYSICIAN Emergency Medicine
DX: F10.139 Alcohol abuse with withdrawal, unspecified (principal); F32.A Depression, unspecified; F41.9 Anxiety disorder, unspecified; E03.9 Hypothyroidism, unspecified; J45.909 Unspecified asthma, uncomplicated; F43.10 Post-traumatic stress disorder, unspecified; F90.9 Attention-deficit hyperactivity disorder, unspecified type; F17.290 Nicotine dependence, other tobacco product, uncomplicated; E83.42 Hypomagnesemia; E87.6 Hypokalemia; K29.20 Alcoholic gastritis without bleeding; Z79.899 Other long term (current) drug therapy
CPT/HCPCS: 80048; 80053; 80306; 80307; 81003; 81015; 82077; 82248; 83690; 83735; 84100; 84443; 84703; 85025; 85027; 93005; 96361; 96374; 96375; 96376; 99284

== ENCOUNTER 2024-01-19 11:56 | Emergency (ER) | payer OTHER, SELFPAY ==
[2024-01-19 11:59] VITALS: BP 131/107
[2024-01-19] MEDS: NSS 1000 IV (12:46)
[2024-01-19 12:54] LABS: % Basophils 0.6 % (0-2); % Eosinophils 0.1 % (0-6); % Immature Granulocytes 0.4 % (0-0.5); % Lymphocytes 6.9 % (20.5-51.1); % Monocytes 1.6 % (1.7-9.3); % Neutrophils 90.4 % (42.2-75.2); Absolute Basophils 0.1 10^3/uL (0-0.2); Absolute Immature Granulocytes 0.1 10^3/uL (0-0.05); Absolute Lymphocytes 0.8 10^3/uL (1.2-3.4); Absolute Monocytes 0.2 10^3/uL (0.1-0.6); Absolute Neutrophils 10.9 10^3/uL (1.4-6.5); Hematocrit 44.2 % (37.0-47.0); Hemoglobin 16.4 g/dL (12.0-16.0); Mean Corp Hgb Conc. 37.1 g/dL (33.0-37.0); Mean Corpuscular Hgb 32.8 pg (27.0-31.0); Mean Corpuscular Volume 88.4 fL (81.0-99.0); Mean Platelet Volume 8.8 fL (7.4-10.4); Nucleated Red Blood Cells % 0 %; Platelet Count 324 10^3/uL (130-400); Red Cell Dist. Width 13.8 % (11.5-14.5)
[2024-01-19 12:55] LABS: Venous Blood Gas B.E. -5.2 mmol/L (-4 to +4); Venous Blood Gas HCO3 18.2 mmol/L (22-27); Venous Blood Gas O2 Sat % 99.1 %; Venous Blood Gas pCO2 30 mmHg (35-48); Venous Blood Gas pH 7.39 (7.32-7.43); Venous Blood Gas pO2 109 mmHg (30-50)
[2024-01-19 13:00] VITALS: BP 156/115
[2024-01-19 13:09] LABS: HCG, Serum Qualitative Screen Negative
[2024-01-19 13:12] LABS: ALT (SGPT) 73 U/L (0-35); AST (SGOT) 200 U/L (14-36); Albumin 5.7 g/dl (3.5-5.0); Alcohol 126 mg/dl; Alkaline Phosphatase 124 U/L (38-126); Blood Urea Nitrogen 20 mg/dl (7-17); Carbon Dioxide 16 mmol/L (22-30); Chloride 103 mmol/L (98-107); Glucose 134 mg/dl (70-99); Lipase 79 U/L (23-300); Magnesium 1.8 mg/dl (1.6-2.3); Potassium 4.2 mmol/L (3.5-5.1); Sodium 144 mmol/L (135-145); Total Bilirubin 1.1 mg/dl (0.2-1.3); Total Protein 8.9 g/dl (6.3-8.2); eGFR > 60.00
[2024-01-19] MEDS: ZOFRAN 4 MG IV (13:49)
[2024-01-19 14:00] VITALS: BP 159/117
[2024-01-19 15:00] VITALS: BP 160/112
[2024-01-19] MEDS: PROTONIX IV 40 MG IV (15:15)
[2024-01-19] MEDS: BENADRYL 25 MG IV (15:16)
[2024-01-19] MEDS: REGLAN 10 MG IV (15:16)
--- NOTE | 2024-01-19 15:25 | ED.GENMED ---
History of Present Illness
General
Chief Complaint: Alcohol Problem
Source: patient
Exam Limitations: none
Time Seen by Provider: 01/19/24 12:15
Travel History
Have you had any contact with someone who has COVID-19?: No
Do you have any symptoms of coronavirus? Fever > 100 degrees, chills, cough, shortness of breath, sore throat, loss of taste or smell, muscle aches, or headache?: No
History of Present Illness
History of Present Illness:
38-year-old female who presents with persistent vomiting. Patient is a history of alcoholism history of alcoholic gastritis. Patient states that she has been drinking about 750 mL of vodka daily. Last drink was last night into today. Patient
states she has been vomiting for the last several hours. No hematemesis. No melena. Does report some abdominal pain with vomiting only. No chest pain. Patient presents with a 2's younger children
Past History
Past History
ED Past Medical History: Asthma, Hypothyroidism and Psychiatric (Anxiety, depression, alcohol abuse, PTSD< ADHD)
ED Past Surgical History: Other (Skin graft right hand. )
Social History
Tobacco: Vaping (Former Cig smoker)
Alcohol: Chronic alcoholic (Daily bottle of Vodka)
Drug: None
Personal:
Living: with family
Employment: Employed
Phy Exam
Physical Exam
Physical Exam:
CONSTITUTIONAL Patient alert and oriented to person, place and time. Vital signs reviewed. Tachycardic
HEAD atraumatic, normocephalic.
EYES eyelids normal to inspection, Extraocular muscles intact, Conjunctiva normal, Sclera normal.
NECK normal range of motion, Trachea midline, no jugular venous distention.
RESPIRATORY CHEST No respiratory distress noted, Chest expansion equal, Bilateral breath sounds clear.
CARDIOVASCULAR regular and tachycardic.
ABDOMEN abdomen nontender, Bowel sounds normal. No distention.
BACK normal inspection, no obvious deformities
UPPER EXTREMITY range of motion normal, Motor strength normal, no cyanosis, no edema.
LOWER EXTREMITY range of motion normal, Motor strength normal, no cyanosis, no edema.
NEURO Speech normal, No focal motor deficits, Morenita coma scale 15, Memory normal, Cranial Nerves intact to screening exam.
SKIN skin warm, dry, and normal in color.
PSYCHIATRIC patient oriented to person place and time, Normal affect.
Scores
Withdrawal Assessment of Alcohol
Withdrawal Assessment Completed?: Yes
Nausea and Vomiting: Mild nausea with no vomiting
Tactile Disturbances: None
Tremor: Not visible, but can be felt fingertip to fingertip
Auditory Disturbances: Not present
Paroxysmal Sweats: No sweat visible
Visual Disturbances: Not present
Anxiety: No anxiety, at ease
Headache, Fullness in Head: Not present
Agitation: Normal activity
Orientation and clouding of sensorium: Oriented and can do serial additions
Total CIWA Score: 2
Alcohol Withdrawal Medication Recommendation: Equal to MSAS Score 0-4. Monitor & re-assess q2hrs, NO MEDICATION NEEDED
Course
Orders/Labs/Results
Orders:
Orders
01/19/24 12:17
Test Result ONCE
01/19/24 12:29
0.9% Sodium Chloride 1000 ml [Nss] 1,000 ml IV BOLUS
01/19/24 12:30
Electrocardiogram (*1) Urgent
Reason for Study: QTc Monitoring
EKG- Treatment ONCE
01/19/24 12:44
Alcohol Urgent
Complete Blood Count/With Diff Urgent
Comprehensive Metabolic Panel Urgent
HCG, Serum Qualitative Screen Urgent
Lipase Urgent
Magnesium Urgent
Venous Blood Gas Urgent
%Oxygen/Room Air: RA
01/19/24 12:48
Add On- LAB Urgent
Tests Added?: Alcohol
01/19/24 12:54
Ondansetron Injectable [Zofran] 4 mg IV NOW STA
01/19/24 15:08
Pantoprazole [Protonix IV] 40 mg IV NOW STA
Sucralfate Suspension [Carafate Suspension] 1 gm PO NOW STA
01/19/24 15:10
Diphenhydramine [Benadryl] 25 mg IV NOW STA
Metoclopramide [Reglan] 10 mg IV NOW STA
01/19/24 16:09
Acetaminophen [Tylenol] 1,000 mg .ROUTE .STK-MED ONE
01/19/24 16:11
Acetaminophen [Tylenol] 1,000 mg PO NOW STA
Abnormal Lab Results
01/19/24
12:44
WBC 12.0 H 10^3/uL
(4.8-10.8)
Hgb 16.4 H g/dL
(12.0-16.0)
MCH 32.8 H pg
(27.0-31.0)
MCHC 37.1 H g/dL
(33.0-37.0)
Abs Immat Gran (auto) 0.1 H 10^3/uL
(0-0.05)
Absolute Neuts (auto) 10.9 H 10^3/uL
(1.4-6.5)
Absolute Lymphs (auto) 0.8 L 10^3/uL
(1.2-3.4)
Neutrophils % 90.4 H %
(42.2-75.2)
Lymphocytes % 6.9 L %
(20.5-51.1)
Monocytes % 1.6 L %
(1.7-9.3)
VBG pCO2 30 L mmHg
(35-48)
VBG pO2 109 H mmHg
(30-50)
VBG HCO3 18.2 L mmol/L
(22-27)
Carbon Dioxide 16 L mmol/L
(22-30)
BUN 20 H mg/dl
(7-17)
Glucose 134 H mg/dl
(70-99)
AST 200 H U/L
(14-36)
ALT 73 H U/L
(0-35)
Total Protein 8.9 H g/dl
(6.3-8.2)
Albumin 5.7 H g/dl
(3.5-5.0)
01/19/24 12:44
01/19/24 12:44
Vital Signs
Blood pressure: 168/102
Initial and Last Documented VS:
Initial Vital Signs
Temp Pulse Resp BP Pulse Ox
98.9 F 142 20 131/107 98
01/19/24 11:59 01/19/24 11:59 01/19/24 11:59 01/19/24 11:59 01/19/24 11:59
Last Documented Vital Signs
Temp Pulse Resp BP Pulse Ox
98.9 F 100 16 143/94 95
01/19/24 11:59 01/19/24 16:15 01/19/24 16:15 01/19/24 16:00 01/19/24 15:45
MDM/Problems Addressed
MDM/Problems Addressed:
Alcoholic gastritis, alcoholism, intractable vomiting
*Pulse Oximetry
Patient hypoxic: no
*EKG
Interpreted by ED Provider?: Yes
Interpretation: abnormal
Rate: tachycardiac
Rhythm: sinus
Interval: normal interval
Ischemia: no ischemia
*Store Deli Manager Interpretation
Rate: tachycardiac
Interpretation: abnormal
Rhythm: sinus
*Critical Care Note
Total Time (30-74mins, 75-104mins- exclusive of procedures): 40 minutes
Data Reviewed
Review of Other/Old Records Reveals: Labs (Prior labs reviewed) and Discharge Summary (Recent discharge summary from January reviewed)
Source: patient
Prescriptions/Medications Considered But Not Given:
Considered Ativan but currently suspect more related to her vomiting and gastritis. Will monitor closely as she may require benzodiazepines
Patient Management
Social determinants of health affecting care: Substance abuse
Escalation/DeEscalation of care consider admission/obs:
Considered admission but patient feeling much better and wants to go home. Think this is reasonable. She is not in overt withdrawal. I will provide benzodiazepines and antiemetics at home. Patient will return immediately for any progression of
symptoms.
ED Attending Note
-
Portions of this chart may have been created with voice recognition software.� Occasional wrong word or��sound alike� substitutions may have occurred due to the inherent limitations of voice recognition software.
Discharge Plan
Departure
Patient Disposition: Home (Routine Discharge)
Date of Disposition: 01/19/24
Time of Disposition: 15:52
Patient with high blood pressure during this ER visit?: Yes
Discharge Problem:
Alcohol abuse, Acute alcoholic gastritis
Instructions: Gastritis, Alcohol Withdrawal (DC)
Prescriptions:
New
pantoprazole [Protonix] 40 mg tablet,delayed release (DR/EC)
40 mg PO DAILY Qty: 30 0RF
Rx Instructions:
Please take 30 minutes prior to eating or drinking anything in the morning.
diazepam 10 mg tablet
10 mg PO TID Qty: 12 0RF
Rx Instructions:
Take 10mg PO TID x 2 days, then 10mg BID x 2 days, then 10mg qhs x 2 days
ondansetron 4 mg tablet,disintegrating
4 mg PO Q8H PRN (Reason: nausea and vomiting) Qty: 14 0RF
No Action
levothyroxine 50 MCG tablet
50 mcg PO DAILY AT 0700
sertraline 50 MG tablet
100 mg PO DAILY
Patient Comments:
07/07/23- patient has been using old bottle and know she suppose to be on 25mg daily but she wants to be on 50mg daily and has been taking 50mg daily at home
olanzapine 5 mg Tablet
5 mg PO DAILY
atomoxetine 60 mg Capsule
60 mg PO DAILY
gabapentin 600 mg tablet
600 mg PO TID PRN (Reason: mild pain)
norethindrone ac-eth estradiol [June ()] 1.5-30 mg-mcg tablet
1 tab PO DAILY
methocarbamol 750 mg tablet
1,500 mg PO BID PRN (Reason: mild-moderate pain)
hydroxyzine pamoate 50 mg capsule
100 mg PO BID PRN (Reason: anxiety) Qty: 14 0RF
pantoprazole [Protonix] 40 mg tablet,delayed release (DR/EC)
40 mg PO DAILY Qty: 30 0RF
trazodone 100 mg Tablet
100 mg PO HSPRN PRN (Reason: sleep) Qty: 0 0RF
Patient Comments:
07/07/23-patient has old bottle in room and has one tablet in it, she said she has an older bottle at home with more tablets in it
Referrals:
Lea Dumont PA-C [Family Provider] -
Activity Restrictions/Additional Instructions:
Please stop drinking alcohol. Please avoid driving or operating machinery or making important decisions while taking Valium. Return immediately for intractable vomiting, motor weakness of any kind, shaking, seizures, changes in mentation or any
other concerns. Please maintain proper hydration and stick to a bland diet.
Interventions
Interventions:
*Risk Screen - Suicide Last Done: 01/19/24 12:49
*General Assessment Last Done: 01/19/24 12:49
*Neglect/Abuse Screening Last Done: 01/19/24 12:49
*ED COVID-19 Vaccine History Last Done: 01/19/24 12:49
*Nursing Disposition Last Done: 01/19/24 16:33
ED- Neurological Assessment Last Done: 01/19/24 12:49
ED-Psychological Assessment Last Done: 01/19/24 12:49
Discharge Date and Time
Discharge Date/Time: 01/19/24 16:34
Print Language: VENEZUELAN
[2024-01-19 16:00] VITALS: BP 143/94
[2024-01-19] MEDS: TYLENOL 1000 MG PO (16:11)
== END 2024-01-19 16:34 | disposition home or self-care (01) ==
LOC: EMR 11:56
PROVIDERS: EMERGENCY PHYSICIAN Emergency Medicine; FAMILY PHYSICIAN Physician Assistant Medical
DX: F10.229 Alcohol dependence with intoxication, unspecified (principal); K29.20 Alcoholic gastritis without bleeding; E03.9 Hypothyroidism, unspecified; J45.909 Unspecified asthma, uncomplicated; F41.9 Anxiety disorder, unspecified; F32.A Depression, unspecified; F43.10 Post-traumatic stress disorder, unspecified; F90.9 Attention-deficit hyperactivity disorder, unspecified type; F17.290 Nicotine dependence, other tobacco product, uncomplicated
CPT/HCPCS: 99291; 96374; 96375 ×3; 96361; 80053; 82077; 82805; 83690; 83735; 84703; 85025; 93005

== ENCOUNTER 2024-02-09 20:31 | Emergency (ER) | payer OTHER, SELFPAY ==
[2024-02-09 20:31] VITALS: BMI 31.0
[2024-02-09 20:33] VITALS: BP 165/104
--- NOTE | 2024-02-09 22:20 | ED.GENMED ---
History of Present Illness
General
Chief Complaint: Alcohol Problem
Source: patient
Exam Limitations: none
Time Seen by Provider: 02/09/24 22:18
Nursing documentation reviewed up to this point in time: agreed with
History of Present Illness
History of Present Illness:
38-year-old female presents emergency room complaining of persistent vomiting. She last drank at 6 PM, 2 glasses of vodka. She drinks about 750 mL of vodka daily. She was brought to the hospital by her neighbor.
Past History
Past History
ED Past Medical History: Asthma, Hypothyroidism and Psychiatric (Anxiety, depression, alcohol abuse, PTSD< ADHD)
ED Past Surgical History: Other (Skin graft right hand. )
Social History
Tobacco: Vaping (Former Cig smoker)
Alcohol: Chronic alcoholic (Daily bottle of Vodka)
Drug: None
Personal:
Living: with family
Employment: Employed
Review of Systems
Review of Systems
Allergies reviewed?: Yes
All Other Systems: Not applicable
Constitutional: Reports no symptoms
EENT: Reports no symptoms
Respiratory: Reports no symptoms
Cardiac: Reports no symptoms
ABD/GI: Reports vomiting
: Reports no symptoms
Musculoskeletal: Reports no symptoms
Skin: Reports no symptoms
Neurological: Reports no symptoms
Endocrine: Reports no symptoms
Hematologic/Lymphatic: Reports no symptoms
Psychiatric: Reports no symptoms
Phy Exam
Physical Exam
Physical Exam:
Physical Exam
General: Appears uncomfortable, dry heaving.
Neck: supple. no meningeal signs. normal posterior pharynx
Heart: s1/s2 tachycardia, no murmur. equal radial
pulses.
HEENT: Pupils equal round reactive to light, EOMI
Lungs: no acute respiratory distress. clear bilaterally
Abdomen: normal bowel sounds. not tender. no CVAT
Neuro: alert and oriented. no focal neurological deficits cranial nerves II through XII intact
Skin: no rash
Psychiatric: well kept. interactive and cooperative
Extremities: no edema. no calf tenderness. negative homans. good distal pulses
Scores
Withdrawal Assessment of Alcohol
Withdrawal Assessment Completed?: Yes
Nausea and Vomiting: Intermittent nausea with dry heaves
Tactile Disturbances: None
Tremor: No tremor
Auditory Disturbances: Not present
Paroxysmal Sweats: No sweat visible
Visual Disturbances: Not present
Anxiety: Mild anxiety
Headache, Fullness in Head: Moderate
Agitation: Moderately fidgety and restless
Orientation and clouding of sensorium: Oriented and can do serial additions
Total CIWA Score: 12
Alcohol Withdrawal Medication Recommendation: Equal to MSAS Score 5-7. Lorazepam 1mg IV or PO NOW & re-assess q2hrs
Course
Orders/Labs/Results
Orders:
Orders
02/09/24 22:18
IV Insert/Care/Rem.- Treatment PRN
02/09/24 22:20
Cardiac Monitoring- Treatment ONCE
02/09/24 22:30
0.9% Sodium Chloride 1000 ml [Nss] 1,000 ml IV BOLUS
Ondansetron Injectable [Zofran] 4 mg IV NOW STA
Pantoprazole [Protonix IV] 40 mg IV NOW STA
02/09/24 22:55
Alcohol Urgent
Complete Blood Count/With Diff Urgent
Comprehensive Metabolic Panel Urgent
02/09/24 23:24
diazePAM [Valium Injection] 5 mg IV NOW STA
02/10/24 01:11
Diphenhydramine [Benadryl] 25 mg IV NOW STA
Metoclopramide [Reglan] 10 mg IV NOW STA
Abnormal Lab Results
02/09/24
22:55
MCH 33.0 H pg
(27.0-31.0)
MCHC 37.2 H g/dL
(33.0-37.0)
Absolute Lymphs (auto) 0.4 L 10^3/uL
(1.2-3.4)
Immature Gran % 0.6 H %
(0-0.5)
Neutrophils % 88.8 H %
(42.2-75.2)
Lymphocytes % 6.5 L %
(20.5-51.1)
Potassium 3.2 L mmol/L
(3.5-5.1)
Chloride 95 L mmol/L
(98-107)
Carbon Dioxide 20 L mmol/L
(22-30)
Glucose 124 H mg/dl
(70-99)
Calcium 10.3 H mg/dl
(8.4-10.2)
AST 336 H U/L
(14-36)
ALT 201 H U/L
(0-35)
Total Protein 8.4 H g/dl
(6.3-8.2)
Albumin 5.7 H g/dl
(3.5-5.0)
02/09/24 22:55
02/09/24 22:55
Vital Signs
Initial and Last Documented VS:
Initial Vital Signs
Temp Pulse Resp BP Pulse Ox
98.5 F 122 24 165/104 98
02/09/24 20:33 02/09/24 20:33 02/09/24 20:33 02/09/24 20:33 02/09/24 20:33
Last Documented Vital Signs
Temp Pulse Resp BP Pulse Ox
98.5 F 96 20 165/108 98
02/09/24 20:33 02/10/24 03:30 02/10/24 03:30 02/10/24 03:30 02/09/24 23:00
MDM/Problems Addressed
Differential Diagnosis Includes:
Alcohol withdrawal, alcoholic gastritis
MDM/Problems Addressed:
38-year-old female with nausea and vomiting, likely alcohol gastritis. Possibly mild withdrawal. Patient feels somewhat better. Advised admission, patient declines. Will discharge with course of diazepam. Patient declines [facility]
Chronic conditions affecting care: Other (Alcoholic gastritis)
Acute Exacerbation and/or Progression of Chronic Illness: Other (Alcoholism)
*Pulse Oximetry
Patient hypoxic: no
*EKG
Interpreted by ED Provider?: NA
*Mica Splitter Interpretation
Rate: normal
Interpretation: normal
Heart Rate: 96
Rhythm: sinus
*Critical Care Note
Total Time (30-74mins, 75-104mins- exclusive of procedures): Not Applicable
Patient Management
Social determinants of health affecting care: Living situation and Substance abuse
Escalation/DeEscalation of care consider admission/obs:
Recommended admission, patient declined, patient also declined [facility]
ED Attending Note
-
Portions of this chart may have been created with voice recognition software.� Occasional wrong word or��sound alike� substitutions may have occurred due to the inherent limitations of voice recognition software.
Discharge Plan
Departure
Patient Disposition: Home (Routine Discharge)
Date of Disposition: 02/10/24
Time of Disposition: 02:49
Patient with high blood pressure during this ER visit?: Yes
Condition: Fair
Discharge Problem:
Alcohol abuse, Alcohol withdrawal, Hypokalemia, Nausea & vomiting
Instructions: Gastritis, Alcohol Withdrawal (DC), Alcohol Use Disorder (DC)
Prescriptions:
New
diazepam 10 mg tablet
See Rx Instructions .ROUTE .COMPLEX PRN (Reason: alcohol withdrawal) Qty: 14 0RF
Rx Instructions:
10 mg po tid for 2 days, 10 mg bid for 2 days, 10mg qhs for 2 days
ondansetron 4 mg tablet,disintegrating
4 mg PO Q8H PRN (Reason: nausea and vomiting) 4 Days Qty: 10 0RF
pantoprazole [Protonix] 40 mg tablet,delayed release (DR/EC)
40 mg PO DAILY Qty: 30 0RF
No Action
levothyroxine 50 MCG tablet
50 mcg PO DAILY AT 0700
sertraline 50 MG tablet
100 mg PO DAILY
Patient Comments:
07/07/23- patient has been using old bottle and know she suppose to be on 25mg daily but she wants to be on 50mg daily and has been taking 50mg daily at home
olanzapine 5 mg Tablet
5 mg PO DAILY
atomoxetine 60 mg Capsule
60 mg PO DAILY
gabapentin 600 mg tablet
600 mg PO TID PRN (Reason: mild pain)
norethindrone ac-eth estradiol [June ()] 1.5-30 mg-mcg tablet
1 tab PO DAILY
methocarbamol 750 mg tablet
1,500 mg PO BID PRN (Reason: mild-moderate pain)
hydroxyzine pamoate 50 mg capsule
100 mg PO BID PRN (Reason: anxiety) Qty: 14 0RF
pantoprazole [Protonix] 40 mg tablet,delayed release (DR/EC)
40 mg PO DAILY Qty: 30 0RF
trazodone 100 mg Tablet
100 mg PO HSPRN PRN (Reason: sleep) Qty: 0 0RF
Patient Comments:
07/07/23-patient has old bottle in room and has one tablet in it, she said she has an older bottle at home with more tablets in it
pantoprazole [Protonix] 40 mg tablet,delayed release (DR/EC)
40 mg PO DAILY Qty: 30 0RF
Rx Instructions:
Please take 30 minutes prior to eating or drinking anything in the morning.
diazepam 10 mg tablet
10 mg PO TID Qty: 12 0RF
Rx Instructions:
Take 10mg PO TID x 2 days, then 10mg BID x 2 days, then 10mg qhs x 2 days
ondansetron 4 mg tablet,disintegrating
4 mg PO Q8H PRN (Reason: nausea and vomiting) Qty: 14 0RF
Referrals:
UNKNOWN - PT DOES,NOT KNOW [Family Provider] -
Interventions
Interventions:
*Risk Screen - Suicide Last Done: 02/09/24 20:33
*General Assessment Last Done: 02/09/24 20:33
*Neglect/Abuse Screening Last Done: 02/09/24 20:33
ED- Fall Risk Assessment Last Done: 02/09/24 23:00
*ED COVID-19 Vaccine History Last Done: 02/09/24 20:31
*Nursing Disposition Last Done: 02/10/24 03:48
ED- Neurological Assessment Last Done: 02/09/24 20:31
ED-Psychological Assessment Last Done: 02/09/24 20:31
Discharge Date and Time
Discharge Date/Time: 02/10/24 03:49
Print Language: ANDORRAN
[2024-02-09] MEDS: PROTONIX IV 40 MG IV (22:59)
[2024-02-09] MEDS: ZOFRAN 4 MG IV (22:59)
[2024-02-09] MEDS: NSS 1000 IV (22:59)
[2024-02-09 23:02] LABS: % Basophils 0.3 % (0-2); % Eosinophils 0.2 % (0-6); % Immature Granulocytes 0.6 % (0-0.5); % Lymphocytes 6.5 % (20.5-51.1); % Monocytes 3.6 % (1.7-9.3); % Neutrophils 88.8 % (42.2-75.2); Absolute Lymphocytes 0.4 10^3/uL (1.2-3.4); Absolute Monocytes 0.2 10^3/uL (0.1-0.6); Absolute Neutrophils 5.9 10^3/uL (1.4-6.5); Hematocrit 41.1 % (37.0-47.0); Hemoglobin 15.3 g/dL (12.0-16.0); Mean Corp Hgb Conc. 37.2 g/dL (33.0-37.0); Mean Corpuscular Volume 88.8 fL (81.0-99.0); Mean Platelet Volume 9.6 fL (7.4-10.4); Nucleated Red Blood Cells % 0 %; Platelet Count 235 10^3/uL (130-400); Red Blood Cell Count 4.63 10^6/uL (4.20-5.40); Red Cell Dist. Width 13.7 % (11.5-14.5); White Blood Cell Count 6.6 10^3/uL (4.8-10.8)
[2024-02-09 23:19] LABS: ALT (SGPT) 201 U/L (0-35); AST (SGOT) 336 U/L (14-36); Albumin 5.7 g/dl (3.5-5.0); Alcohol 64 mg/dl; Alkaline Phosphatase 117 U/L (38-126); Blood Urea Nitrogen 9 mg/dl (7-17); Calcium 10.3 mg/dl (8.4-10.2); Carbon Dioxide 20 mmol/L (22-30); Chloride 95 mmol/L (98-107); Estimated Creatinine Clearance > 125 ml/min; Glucose 124 mg/dl (70-99); Potassium 3.2 mmol/L (3.5-5.1); Sodium 139 mmol/L (135-145); Total Bilirubin 1.2 mg/dl (0.2-1.3); Total Protein 8.4 g/dl (6.3-8.2); eGFR > 60.00
[2024-02-09 23:30] VITALS: BP 164/113
[2024-02-09] MEDS: VALIUM INJECTION 5 MG IV (23:51)
[2024-02-10] VITALS (8 sets, daily range): BP systolic 154–167; BP diastolic 101–113
[2024-02-10] MEDS: BENADRYL 25 MG IV (01:38)
[2024-02-10] MEDS: REGLAN 10 MG IV (01:38)
== END 2024-02-10 03:49 | disposition home or self-care (01) ==
LOC: EMR 20:31
PROVIDERS: EMERGENCY PHYSICIAN Emergency Medicine
DX: F10.239 Alcohol dependence with withdrawal, unspecified (principal); E87.6 Hypokalemia; R11.2 Nausea with vomiting, unspecified; J45.909 Unspecified asthma, uncomplicated; E03.9 Hypothyroidism, unspecified; F41.8 Other specified anxiety disorders; F43.10 Post-traumatic stress disorder, unspecified; F90.9 Attention-deficit hyperactivity disorder, unspecified type; Z87.891 Personal history of nicotine dependence
CPT/HCPCS: 99283; 96374; 96375; 96361; 80053; 82077; 85025

== ENCOUNTER 2024-03-15 13:34 | Emergency (ER) | payer OTHER, SELFPAY ==
[2024-03-15 13:36] VITALS: BP 153/98
[2024-03-15 14:39] LABS: % Basophils 0.9 % (0-2); % Eosinophils 0.1 % (0-6); % Immature Granulocytes 0.5 % (0-0.5); % Lymphocytes 11.9 % (20.5-51.1); % Monocytes 5.1 % (1.7-9.3); % Neutrophils 81.5 % (42.2-75.2); Absolute Basophils 0.1 10^3/uL (0-0.2); Absolute Lymphocytes 0.9 10^3/uL (1.2-3.4); Absolute Monocytes 0.4 10^3/uL (0.1-0.6); Absolute Neutrophils 6.4 10^3/uL (1.4-6.5); Hematocrit 44.4 % (37.0-47.0); Hemoglobin 16.5 g/dL (12.0-16.0); Mean Corp Hgb Conc. 37.2 g/dL (33.0-37.0); Mean Corpuscular Hgb 33.8 pg (27.0-31.0); Mean Platelet Volume 9.5 fL (7.4-10.4); Nucleated Red Blood Cells % 0 %; Platelet Count 183 10^3/uL (130-400); Red Blood Cell Count 4.88 10^6/uL (4.20-5.40); Red Cell Dist. Width 13.7 % (11.5-14.5); White Blood Cell Count 7.8 10^3/uL (4.8-10.8)
[2024-03-15 15:01] LABS: HCG, Serum Qualitative Screen Negative
[2024-03-15 15:05] LABS: Alcohol 104 mg/dl; Blood Urea Nitrogen 16 mg/dl (7-17); Calcium 9.9 mg/dl (8.4-10.2); Carbon Dioxide 20 mmol/L (22-30); Chloride 94 mmol/L (98-107); Glucose 127 mg/dl (70-99); Potassium 3.5 mmol/L (3.5-5.1); Sodium 138 mmol/L (135-145); eGFR > 60.00
--- NOTE | 2024-03-15 15:38 | ED.GENMED ---
History of Present Illness
General
Chief Complaint: Alcohol Problem
Source: patient
Exam Limitations: none
Time Seen by Provider: 03/15/24 15:29
Nursing documentation reviewed up to this point in time: agreed with
History of Present Illness
History of Present Illness:
Patient to ED wt complaint of vomiting, 'withdrawal symptoms'. States her symptoms started last PM. SHe reports she has been cutting back on her drinking. Declines rehab 'I can't'. Declines [facility] intervention. Brought to ED by friend for
eval. Last drink this AM
Past History
Past History
ED Past Medical History: Asthma, Hypothyroidism and Psychiatric (Anxiety, depression, alcohol abuse, PTSD< ADHD)
ED Past Surgical History: Other (Skin graft right hand. )
Social History
Tobacco: Vaping (Former Cig smoker)
Alcohol: Chronic alcoholic (Daily bottle of Vodka)
Drug: None
Personal:
Living: with family
Employment: Employed
Review of Systems
Review of Systems
Allergies reviewed?: Yes
All Other Systems: ROS reviewed and negative except as documented in HPI and ROS
Constitutional: Reports no symptoms
EENT: Reports no symptoms
Respiratory: Reports no symptoms
Cardiac: Reports no symptoms
ABD/GI: Reports nausea and vomiting
: Reports no symptoms
Musculoskeletal: Reports joint pain (Pain to right ankle. Rolled ankle 2 days ago.)
Skin: Reports no symptoms
Neurological: Reports no symptoms
Psychiatric: Reports no symptoms
Phy Exam
General Physical Exam
General Presentation: moderate distress
General age: appears stated age
General Skin: warm and dry
General Habitus: normal
General Mental: alert
Gastrointestinal Exam
Gastrointestinal Exam: normal bowel sounds, non tender, soft and no organomegaly
Musculoskeletal Exam
Musculoskeletal Exam: full ROM and neuro vasc intact
Skin Exam
Skin Exam: normal color, warm/dry and no rash
Psychiatric Exam
Psychiatric Exam: normal mood/affect
Scores
Withdrawal Assessment of Alcohol
Withdrawal Assessment Completed?: Yes
Nausea and Vomiting: Constant nausea, frequent dry heaves and vomiting
Tactile Disturbances: None
Tremor: Not visible, but can be felt fingertip to fingertip
Auditory Disturbances: Not present
Paroxysmal Sweats: No sweat visible
Visual Disturbances: Not present
Anxiety: Moderately anxious, or guarded, so anxiety is inferred
Headache, Fullness in Head: Not present
Agitation: Moderately fidgety and restless
Orientation and clouding of sensorium: Oriented and can do serial additions
Total CIWA Score: 16
Alcohol Withdrawal Medication Recommendation: Equal to MSAS Score 8-11. Lorazepam 1-2mg IV NOW & re-assess q1hr
Course
Orders/Labs/Results
Orders:
Orders
03/15/24 14:21
Test Result ONCE
03/15/24 14:30
Alcohol Urgent
Basic Metabolic Panel Urgent
Complete Blood Count/With Diff Urgent
HCG, Serum Qualitative Screen Urgent
03/15/24 15:37
0.9% Sodium Chloride 1000 ml [Nss] 1,000 ml IV BOLUS
Lorazepam [Ativan] 1 mg IV NOW STA
Ondansetron Injectable [Zofran] 4 mg IV NOW STA
03/15/24 16:17
Ankle, Right 3 view CR [CR Ankle - Right Min 3 Views *] Urgent
Comment:
Reason For Exam: pain
Abnormal Lab Results
03/15/24
14:30
Hgb 16.5 H g/dL
(12.0-16.0)
MCH 33.8 H pg
(27.0-31.0)
MCHC 37.2 H g/dL
(33.0-37.0)
Absolute Lymphs (auto) 0.9 L 10^3/uL
(1.2-3.4)
Neutrophils % 81.5 H %
(42.2-75.2)
Lymphocytes % 11.9 L %
(20.5-51.1)
Chloride 94 L mmol/L
(98-107)
Carbon Dioxide 20 L mmol/L
(22-30)
Glucose 127 H mg/dl
(70-99)
03/15/24 14:30
03/15/24 14:30
Vital Signs
Initial and Last Documented VS:
Initial Vital Signs
Temp Pulse Resp BP Pulse Ox
98.1 F 117 16 153/98 98
03/15/24 13:36 03/15/24 13:36 03/15/24 13:36 03/15/24 13:36 03/15/24 13:36
Last Documented Vital Signs
Temp Pulse Resp BP Pulse Ox
98.1 F 89 20 148/78 97
03/15/24 18:59 03/15/24 18:59 03/15/24 18:59 03/15/24 18:59 03/15/24 18:59
*Critical Care Note
Total Time (30-74mins, 75-104mins- exclusive of procedures): Not Applicable
Update Note
Update Note:
Patient to ED with withdrawal symptoms. States she is trying to quit on own, has been decreasing her daily intake. She has declined [facility] intervention althought she did eventlually meet with [facility]. She declines inpatient rehab because of her young
children. She feels she needs to be with them. SHe was seen here approx 4 weeks ago for same complaint. At that time she was discharged with rx for Diazepam taper and is requesting this treatment again. I discussed with her that the taper was
used to help her deal wth her alcohol withdrawal and it is obvious that she has continued to drink. I am not at all comfortable repeating this process. I spoke with [facility] about this and he agrees. She was given information by [facility] on
outpatient centers. Improved with IVF and ativan. She is discharged home with friend however she was repeatedly counseled that she can return to the ED at any time for inpatient treatment.
ED Attending Note
-
Portions of this chart may have been created with voice recognition software.� Occasional wrong word or��sound alike� substitutions may have occurred due to the inherent limitations of voice recognition software.
Discharge Plan
Departure
Patient Disposition: Home (Routine Discharge)
Date of Disposition: 03/15/24
Time of Disposition: 18:42
Patient with high blood pressure during this ER visit?: No
Condition: Fair
Covid-19: Not Applicable
Discharge Problem:
Alcohol withdrawal
Instructions: Alcohol Withdrawal (DC), Alcohol Use Disorder (DC)
Prescriptions:
No Action
levothyroxine 50 MCG tablet
50 mcg PO DAILY AT 0700
sertraline 50 MG tablet
100 mg PO DAILY
Patient Comments:
07/07/23- patient has been using old bottle and know she suppose to be on 25mg daily but she wants to be on 50mg daily and has been taking 50mg daily at home
olanzapine 5 mg Tablet
5 mg PO DAILY
atomoxetine 60 mg Capsule
60 mg PO DAILY
gabapentin 600 mg tablet
600 mg PO TID PRN (Reason: mild pain)
norethindrone ac-eth estradiol [June ()] 1.5-30 mg-mcg tablet
1 tab PO DAILY
methocarbamol 750 mg tablet
1,500 mg PO BID PRN (Reason: mild-moderate pain)
hydroxyzine pamoate 50 mg capsule
100 mg PO BID PRN (Reason: anxiety) Qty: 14 0RF
pantoprazole [Protonix] 40 mg tablet,delayed release (DR/EC)
40 mg PO DAILY Qty: 30 0RF
trazodone 100 mg Tablet
100 mg PO HSPRN PRN (Reason: sleep) Qty: 0 0RF
Patient Comments:
07/07/23-patient has old bottle in room and has one tablet in it, she said she has an older bottle at home with more tablets in it
pantoprazole [Protonix] 40 mg tablet,delayed release (DR/EC)
40 mg PO DAILY Qty: 30 0RF
Rx Instructions:
Please take 30 minutes prior to eating or drinking anything in the morning.
diazepam 10 mg tablet
10 mg PO TID Qty: 12 0RF
Rx Instructions:
Take 10mg PO TID x 2 days, then 10mg BID x 2 days, then 10mg qhs x 2 days
ondansetron 4 mg tablet,disintegrating
4 mg PO Q8H PRN (Reason: nausea and vomiting) Qty: 14 0RF
diazepam 10 mg tablet
See Rx Instructions .ROUTE .COMPLEX PRN (Reason: alcohol withdrawal) Qty: 14 0RF
Rx Instructions:
10 mg po tid for 2 days, 10 mg bid for 2 days, 10mg qhs for 2 days
ondansetron 4 mg tablet,disintegrating
4 mg PO Q8H PRN (Reason: nausea and vomiting) 4 Days Qty: 10 0RF
pantoprazole [Protonix] 40 mg tablet,delayed release (DR/EC)
40 mg PO DAILY Qty: 30 0RF
Referrals:
UNKNOWN - PT DOES,NOT KNOW [Family Provider] -
Activity Restrictions/Additional Instructions:
Please consider accepting help with you alcohol problem. [facility] is available 27/02. Return to the emergency department at any time for help with placement.
Interventions
Interventions:
*Risk Screen - Suicide Last Done: 03/15/24 18:59
*General Assessment Last Done: 03/15/24 18:59
*Neglect/Abuse Screening Last Done: 03/15/24 18:59
ED- Fall Risk Assessment Last Done: 03/15/24 18:59
*Nursing Disposition Last Done: 03/15/24 18:59
ED- Neurological Assessment Last Done: 03/15/24 15:59
ED-Psychological Assessment Last Done: 03/15/24 15:59
Discharge Date and Time
Discharge Date/Time: 03/15/24 19:02
Print Language: BELIZEAN
Musculoskeletal Injury Exam
Musculoskeletal Injury Exam
Right Ankle:
Pain with Movement?: Moderate
Tender to palpation?: Moderate
Soft tissue swelling?: None
External deformity and angulation?: None
Joint effusion?: None
Contusion?: None
Hematoma-local bleeding into tissue?: None
Strain- Sprain- Tear (Connective tissue injury)?: Moderate
Crepitus with movement?: No
Joint instability?: No
Malalignment/deformity?: No
Range of motion: Full
Distal skin color and temperature: normal-warm & good color
Capillary Refill: normal
Normal distal neurovascular exam?: Yes
Peripheral Pulses: posterior tibial (right): 3+ and dorsalis pedis (right): 3+
[2024-03-15] MEDS: NSS 1000 IV (15:52)
[2024-03-15] MEDS: ZOFRAN 4 MG IV (15:53)
[2024-03-15] MEDS: ATIVAN 1 MG IV (15:53)
[2024-03-15 16:00] VITALS: BP 151/101
[2024-03-15 17:00] VITALS: BP 127/80
[2024-03-15 18:59] VITALS: BP 148/78
== END 2024-03-15 19:02 | disposition home or self-care (01) ==
LOC: EMR 13:34
PROVIDERS: EMERGENCY PHYSICIAN Emergency Medicine
DX: F10.939 Alcohol use, unspecified with withdrawal, unspecified (principal); J45.909 Unspecified asthma, uncomplicated; E03.9 Hypothyroidism, unspecified; F41.8 Other specified anxiety disorders; F43.10 Post-traumatic stress disorder, unspecified; Z87.891 Personal history of nicotine dependence
CPT/HCPCS: 99283; 96374; 96375; 96361; 73610; 80048; 82077; 84703; 85025

== ENCOUNTER 2024-08-15 15:06 | Inpatient (IN) | payer OTHER, SELFPAY ==
[2024-08-15] VITALS (7 sets, daily range): BP systolic 127–166; BP diastolic 73–123; BMI 28.3; BMI 27.5
--- NOTE | 2024-08-15 11:13 | ED.GENMED ---
ED Provider Triage
<DALTON Howard - Last Filed: 08/15/24 11:19>
-
Patient seen by provider in Triage?: Seen in Triage
Attestation: A medical screening examination has been initiated by a qualified medical provider. Based on the assessment performed at this time, it has been determined that an emergent medical condition may exist and the patient has been informed
that further medical evaluation and possible additional diagnostic testing may be needed.
HPI: 39 yr old female presents via EMS for vomiting starting at 3am . She has hx of chronic alcohol abuse. She drinks approx 750 ml of vodka per day and drinks all throughout te day. She stopped drinking and 3 am and started vomiting. no
Diarrhea. Pt has vomited about 'every 5 minutes.' Pt now does feel like she is going into alcohol withdrawal. She has never had an alcohol withdrawal seizure. Pt c/o of chills abdominal cramping . LMP week ago.
GENERAL: Alert , in no apparent distress
EYE: No visual abnormalities.
NECK: Trachea midline
ENT: No visible abnormalities.
LUNGS: No acute respiratory distress
NEUROLOGICAL: Alert and oriented
SKIN: Skin intact. No visible changes.
MUSCULOSKELETAL: Moving extremities normally
PSYCH: Normal and appropriate interaction.
This is a medical evaluation conducted in person to initiate diagnostic evaluation and provide initial therapeutics. Please see further documentation by the treating clinician.
History of Present Illness
<DALTON Howard - Last Filed: 08/15/24 11:19>
General
Chief Complaint: Withdrawal Symptoms
Time Seen by Provider: 08/15/24 11:51
<Favio Lua MD - Last Filed: 08/15/24 14:34>
General
Source: patient
Exam Limitations: none
History of Present Illness
History of Present Illness:
Patient with some upper respiratory symptoms x 2 weeks however developed recurrent vomiting at 3 AM. Small amount of blood with vomit. Epigastric pain. Symptoms are intractable. Last ank at 3 AM
Past History
<DALTON Howard - Last Filed: 08/15/24 11:19>
Past History
ED Past Medical History: Asthma, Hypothyroidism and Psychiatric (Anxiety, depression, alcohol abuse, PTSD< ADHD)
ED Past Surgical History: Other (Skin graft right hand. )
Social History
Tobacco: Vaping (Former Cig smoker)
Alcohol: Chronic alcoholic (Daily bottle of Vodka)
Drug: None
Personal:
Living: with family
Employment: Employed
Review of Systems
<Favio Lua MD - Last Filed: 08/15/24 14:34>
Review of Systems
All Other Systems: Not applicable
Constitutional: Denies fever
Respiratory: Reports no symptoms
Cardiac: Reports no symptoms
Phy Exam
<Favio Lua MD - Last Filed: 08/15/24 14:34>
Physical Exam
Physical Exam:
GENERAL: Alert and oriented. Actively vomiting when I was in the room
EYE: Orbits normal.
NECK: Supple, no significant adenopathy.
ENT: Pharynx without erythema
CARDIAC: Tachycardic and regular no murmur.
LUNGS: Clear breath sounds,normal
ABDOMEN: Soft, moderate epigastric tenderness. No rebound or guarding no mass or hernia. Vomit without obvious blood
NEUROLOGICAL: Alert and oriented , grossly non-focal
SKIN: Warm and dry, no rash or lesion, no discoloration, skin intact.
MUSCULOSKELETAL: No edema,no deformity.Good color
PSYCH: Normal and appropriate interaction.
Course
<DALTON Howard - Last Filed: 08/15/24 11:19>
Orders/Labs/Results
Orders:
Orders
08/15/24 11:10
Test Result ONCE
08/15/24 11:13
EKG [Electrocardiogram (*1)] Urgent
Reason for Study: Tachycardia
EKG- Treatment ONCE
08/15/24 11:14
Alcohol Urgent
Complete Blood Count/With Diff Urgent
Comprehensive Metabolic Panel Urgent
HCG, Serum Qualitative Screen Urgent
Lipase Urgent
08/15/24 11:16
Ondansetron Orally Disint [Zofran Odt (Orally Disintegrating)] 4 mg PO NOW STA
08/15/24 11:38
Ondansetron Injectable [Zofran] 4 mg .ROUTE .STK-MED ONE
08/15/24 11:40
0.9% Sodium Chloride 1000 ml [Nss] 1,000 ml IV BOLUS
Lorazepam [Ativan] 0.5 mg IV NOW STA
Ondansetron Injectable [Zofran] 4 mg IV NOW STA
08/15/24 11:58
Add On- LAB Urgent
Tests Added?: lipase
CT Abd/Pel (IV only)-DH only Urgent
Comment:
Reason For Exam: Diffuse upper abdominal pain/vomiting
IV Insert/Care/Rem.- Treatment PRN
Lorazepam [Ativan] 1 mg IV NOW STA
08/15/24 11:59
Pantoprazole [Protonix IV] 40 mg IV NOW STA
08/15/24 14:18
Admit/Transfer Patient As Directed
Co-Sign Provider:
Level of Care: Inpatient admission
Assign to:: Telemetry
Physician / Group: christophe
Diagnosis: alcoholic gastritis
Reason for Telemetry: Arrhythmia
Date to Stop Telemetry: 08/18/24
Time to Stop Telemetry: 11:00
Reason for Hospitalization: alcoholic gastritis
Expected length of stay greater than two midnights?: Yes
ELOS- Estimated Length of Stay in days: 3
I certify the patient meets the requirements for IP care: Yes
08/15/24 14:19
Code Status As Directed
Resuscitation Status: Full Code
PRN Pain Medication Management As Directed
May give lesser potent ordered pain med per pt: Yes
preference::
Protocol:: Medication orders for pain may be administered in a
manner that supports deferring to patient preference
when the pt is:
- Requesting an ordered lesser potent pain medication.
Least to most potent pain medications are defined
as: acetaminophen < NSAID < tramadol < opioids
(morphine, oxycodone, hydromorphone).
- Requesting a lesser dose of the same medication IF
ORDERED.
- Requesting a less intrusive route of administration
if both routes are prescribed by the provider (PO <
IV).
08/15/24 15:00
0.9% Sodium Chloride 1000 ml [Nss] 1,000 ml Mvi, Adult [Multivitamin] 10 ml Thiamine Injection 100 mg IV 250 mls/hr
08/18/24 11:00
DC Protocol for Telemetry ONCE
Abnormal Lab Results
08/15/24
11:14
MCH 33.7 H pg
(27.0-31.0)
RDW 15.3 H %
(11.5-14.5)
Absolute Lymphs (auto) 0.5 L 10^3/uL
(1.2-3.4)
Neutrophils % 85.5 H %
(42.2-75.2)
Lymphocytes % 10.4 L %
(20.5-51.1)
Carbon Dioxide 12 L* mmol/L
(22-30)
Creatinine 0.5 L mg/dL
(0.6-1.0)
Glucose 108 H mg/dl
(70-99)
AST 149 H U/L
(14-36)
ALT 72 H U/L
(0-35)
Total Protein 8.4 H g/dl
(6.3-8.2)
Albumin 5.8 H g/dl
(3.5-5.0)
08/15/24 11:14
08/15/24 11:14
Vital Signs
Initial and Last Documented VS:
Initial Vital Signs
Temp Pulse Resp BP Pulse Ox
98.5 F 121 18 138/96 98
08/15/24 11:07 08/15/24 11:07 08/15/24 11:07 08/15/24 11:07 08/15/24 11:07
Last Documented Vital Signs
Temp Pulse Resp BP Pulse Ox
98.5 F 95 21 148/96 98
08/15/24 11:07 08/15/24 14:30 08/15/24 14:30 08/15/24 12:30 08/15/24 13:11
<Favio Lua MD - Last Filed: 08/15/24 14:34>
Orders/Labs/Results
Orders:
Orders
08/15/24 11:10
Test Result ONCE
08/15/24 11:13
EKG [Electrocardiogram (*1)] Urgent
Reason for Study: Tachycardia
EKG- Treatment ONCE
08/15/24 11:14
Alcohol Urgent
Complete Blood Count/With Diff Urgent
Comprehensive Metabolic Panel Urgent
HCG, Serum Qualitative Screen Urgent
Lipase Urgent
08/15/24 11:16
Ondansetron Orally Disint [Zofran Odt (Orally Disintegrating)] 4 mg PO NOW STA
08/15/24 11:38
Ondansetron Injectable [Zofran] 4 mg .ROUTE .STK-MED ONE
08/15/24 11:40
0.9% Sodium Chloride 1000 ml [Nss] 1,000 ml IV BOLUS
Lorazepam [Ativan] 0.5 mg IV NOW STA
Ondansetron Injectable [Zofran] 4 mg IV NOW STA
08/15/24 11:58
Add On- LAB Urgent
Tests Added?: lipase
CT Abd/Pel (IV only)-DH only Urgent
Comment:
Reason For Exam: Diffuse upper abdominal pain/vomiting
IV Insert/Care/Rem.- Treatment PRN
Lorazepam [Ativan] 1 mg IV NOW STA
08/15/24 11:59
Pantoprazole [Protonix IV] 40 mg IV NOW STA
08/15/24 14:18
Admit/Transfer Patient As Directed
Co-Sign Provider:
Level of Care: Inpatient admission
Assign to:: Telemetry
Physician / Group: christophe
Diagnosis: alcoholic gastritis
Reason for Telemetry: Arrhythmia
Date to Stop Telemetry: 08/18/24
Time to Stop Telemetry: 11:00
Reason for Hospitalization: alcoholic gastritis
Expected length of stay greater than two midnights?: Yes
ELOS- Estimated Length of Stay in days: 3
I certify the patient meets the requirements for IP care: Yes
08/15/24 14:19
Code Status As Directed
Resuscitation Status: Full Code
PRN Pain Medication Management As Directed
May give lesser potent ordered pain med per pt: Yes
preference::
Protocol:: Medication orders for pain may be administered in a
manner that supports deferring to patient preference
when the pt is:
- Requesting an ordered lesser potent pain medication.
Least to most potent pain medications are defined
as: acetaminophen < NSAID < tramadol < opioids
(morphine, oxycodone, hydromorphone).
- Requesting a lesser dose of the same medication IF
ORDERED.
- Requesting a less intrusive route of administration
if both routes are prescribed by the provider (PO <
IV).
08/15/24 15:00
0.9% Sodium Chloride 1000 ml [Nss] 1,000 ml Mvi, Adult [Multivitamin] 10 ml Thiamine Injection 100 mg IV 250 mls/hr
08/18/24 11:00
DC Protocol for Telemetry ONCE
Abnormal Lab Results
08/15/24
11:14
MCH 33.7 H pg
(27.0-31.0)
RDW 15.3 H %
(11.5-14.5)
Absolute Lymphs (auto) 0.5 L 10^3/uL
(1.2-3.4)
Neutrophils % 85.5 H %
(42.2-75.2)
Lymphocytes % 10.4 L %
(20.5-51.1)
Carbon Dioxide 12 L* mmol/L
(22-30)
Creatinine 0.5 L mg/dL
(0.6-1.0)
Glucose 108 H mg/dl
(70-99)
AST 149 H U/L
(14-36)
ALT 72 H U/L
(0-35)
Total Protein 8.4 H g/dl
(6.3-8.2)
Albumin 5.8 H g/dl
(3.5-5.0)
08/15/24 11:14
08/15/24 11:14
Vital Signs
Initial and Last Documented VS:
Initial Vital Signs
Temp Pulse Resp BP Pulse Ox
98.5 F 121 18 138/96 98
08/15/24 11:07 08/15/24 11:07 08/15/24 11:07 08/15/24 11:07 08/15/24 11:07
Last Documented Vital Signs
Temp Pulse Resp BP Pulse Ox
98.5 F 95 21 148/96 98
08/15/24 11:07 08/15/24 14:30 08/15/24 14:30 08/15/24 12:30 08/15/24 13:11
<Favio Lua MD - Last Filed: 08/15/24 14:34>
MDM/Problems Addressed
Differential Diagnosis Includes:
Patient with recurrent vomiting upper abdominal pain. Likely gastritis, alcoholic ketoacidosis. Doubt withdrawal yet. Drank up until 3 AM. Vomiting is probably a small Jamila-Bone tear although I witnessed the vomit and there was no obvious
blood. Fluids Ativan nausea meds. Banana bag. CT abdomen. Patient will will require admission
<Favio Lua MD - Last Filed: 08/15/24 14:34>
*Radiology
Radiology exam reviewed: radiology read reviewed (No acute findings on CT)
*Pulse Oximetry
Patient hypoxic: no
*EKG
Interpreted by ED Provider?: Yes
Interpretation: abnormal
Comparison EKG: changes noted
Heart Rate: 96
Rate: normal
Rhythm: sinus
[place]: normal axis
Interval: normal interval
QRS Pattern: normal QRS
Ischemia: non-specific ST changes
*Critical Care Note
Total Time (30-74mins, 75-104mins- exclusive of procedures): Not Applicable
Data Reviewed
Review of Other/Old Records Reveals: Labs, Records, Testing and Discharge Summary
ED Attending Note
<DALTON Howard - Last Filed: 08/15/24 11:19>
-
Portions of this chart may have been created with voice recognition software.� Occasional wrong word or��sound alike� substitutions may have occurred due to the inherent limitations of voice recognition software.
Discharge Plan
Departure
Patient Disposition: Admit
Date of Disposition: 08/15/24
Time of Disposition: 13:52
Presentation/result/management discussed w/ accepting MD/DO: Hospitalist
Discharge Problem:
Alcoholic gastritis, Alcoholic ketoacidosis, Possible mild Jamila-Bone tear
Prescriptions:
No Action
prazosin 1 mg Capsule
1 mg PO HS
hydroxyzine HCl 50 mg Tablet
50 mg PO Q6HPRN PRN (Reason: anixety)
levothyroxine [Synthroid] 50 mcg Tablet
50 mcg PO DAILY
pantoprazole [Protonix] 40 mg Tablet,Delayed Release (Dr/Ec)
40 mg PO DAILY
Referrals:
UNKNOWN - PT DOES,NOT KNOW [Family Provider] -
Interventions
Interventions:
*Risk Screen - Suicide Last Done: 08/15/24 11:07
*General Assessment Last Done: 08/15/24 11:07
*Neglect/Abuse Screening Last Done: 08/15/24 11:07
ED- Fall Risk Assessment Last Done: 08/15/24 13:11
*ED COVID-19 Vaccine History Last Done: 08/15/24 11:07
ED- Neurological Assessment Last Done: 08/15/24 12:16
ED-Psychological Assessment Last Done: 08/15/24 12:16
Discharge Date and Time
Print Language: AZERI
[2024-08-15 11:24] LABS: % Immature Granulocytes 0.2 % (0-0.5); % Lymphocytes 10.4 % (20.5-51.1); % Monocytes 2.9 % (1.7-9.3); % Neutrophils 85.5 % (42.2-75.2); Absolute Basophils 0.1 10^3/uL (0-0.2); Absolute Lymphocytes 0.5 10^3/uL (1.2-3.4); Absolute Monocytes 0.1 10^3/uL (0.1-0.6); Absolute Neutrophils 4.2 10^3/uL (1.4-6.5); Hematocrit 40.4 % (37.0-47.0); Hemoglobin 14.2 g/dL (12.0-16.0); Mean Corp Hgb Conc. 35.1 g/dL (33.0-37.0); Mean Corpuscular Hgb 33.7 pg (27.0-31.0); Mean Platelet Volume 9.4 fL (7.4-10.4); Nucleated Red Blood Cells % 0 %; Platelet Count 199 10^3/uL (130-400); Red Blood Cell Count 4.21 10^6/uL (4.20-5.40); Red Cell Dist. Width 15.3 % (11.5-14.5); White Blood Cell Count 4.9 10^3/uL (4.8-10.8)
[2024-08-15 11:37] LABS: HCG, Serum Qualitative Screen Negative
[2024-08-15 11:42] LABS: ALT (SGPT) 72 U/L (0-35); AST (SGOT) 149 U/L (14-36); Albumin 5.8 g/dl (3.5-5.0); Alcohol 132 mg/dl; Alkaline Phosphatase 95 U/L (38-126); Blood Urea Nitrogen 10 mg/dl (7-17); Calcium 9.1 mg/dl (8.4-10.2); Carbon Dioxide 12 mmol/L (22-30); Chloride 98 mmol/L (98-107); Glucose 108 mg/dl (70-99); Potassium 4.1 mmol/L (3.5-5.1); Sodium 143 mmol/L (135-145); Total Bilirubin 1.3 mg/dl (0.2-1.3); Total Protein 8.4 g/dl (6.3-8.2); eGFR > 60.00
[2024-08-15] MEDS: NSS 1000 IV ×2 (11:45→19:35)
[2024-08-15] MEDS: ZOFRAN 4 MG IV (11:45)
[2024-08-15] MEDS: ATIVAN 0.5 MG IV (11:45)
[2024-08-15] MEDS: ATIVAN 1 MG IV (12:10)
[2024-08-15] MEDS: PROTONIX IV 40 MG IV ×2 (12:10→19:35)
[2024-08-15 12:36] LABS: Lipase 141 U/L (23-300)
--- NOTE | 2024-08-15 14:03 | HPS.HSE ---
Family Physician
-
Family Physician: NOT KNOW UNKNOWN - PT DOES
Chief Complaint
-
Abdominal pain associate with nausea vomiting
History of Present Illness
39 yr old female with past medical history for depression, anxiety, alcohol abuse, hypothyroidism presented to us with vomiting starting at 3am . She has hx of chronic alcohol abuse. She drinks approx 750 ml of vodka per day and drinks all
throughout the day. She stopped drinking and 3 am and started vomiting. no Diarrhea. She is having abdominal pain. Patient is also complaining of dizzy and headache. Patient denied fever, chills, chest pain or short of breath. Patient denied
dysuria hematuria. She is just getting over with upper respiratory infection for past 2 weeks.
Admitting for further management patient received a banana bag in ER.. Patient also received Ativan, Zofran, Protonix in ER. Admitting for further management
Medical History
Past Medical History
Past Medical History: Reports Other
Additional Past Medical History:
Alcohol abuse
Hypothyroid
Depression
Anxiety
Asthma
Past Surgical History: Reports Other
Additional Past Surgical History:
Right hand skin
Social History
Tobacco: Former Smoker
Alcohol: Daily (750 mL)
Drug: Other (Occasional weed)
Living: Alone
Employment: Employed
Family History
Family History: Not pertinent
Allergies / Home Medications
Allergies reflects when Allergies were last updated in [employer].
Home Medications with original date entered in [employer]
Allergy/Medication List:
Allergies
Allergy/AdvReac Type Severity Reaction Status Date / Time
No Known Allergies Allergy Verified 08/15/24 12:05
Home Medications
levothyroxine 50 mcg tablet 50 mcg PO DAILY AT 0700 Thyroid 12/02/21
sertraline 50 mg tablet 100 mg PO DAILY Mental Health/Anxiety 12/02/21
atomoxetine 60 mg capsule 60 mg PO DAILY Attentiion deficit disord 12/03/23
olanzapine 5 mg tablet 5 mg PO DAILY mental health 12/03/23
gabapentin 600 mg tablet 600 mg PO TID PRN mild pain 01/07/24
methocarbamol 750 mg tablet 1,500 mg PO BID PRN mild-moderate pain 01/07/24
norethindrone acetate 1.5 mg-ethinyl estradiol 30 mcg tablet (Junel) 1 tab PO DAILY control 01/07/24
hydroxyzine pamoate 50 mg capsule 100 mg (2 x 50 mg) PO BID PRN anxiety #14 caps 01/09/24
trazodone 100 mg tablet 100 mg PO HSPRN PRN sleep #0 tabs 01/09/24
diazepam 10 mg tablet 10 mg PO TID #12 tabs 01/19/24
ondansetron 4 mg disintegrating tablet 4 mg PO Q8H PRN nausea and vomiting #14 tabs 01/19/24
pantoprazole 40 mg tablet,delayed release (Protonix) 40 mg PO DAILY #30 tabs 02/10/24
Review of Systems
-
Constitutional: Reports No Symptoms
EENT: Reports No Symptoms
Respiratory: Reports No Symptoms
Cardiac: Reports No Symptoms
Abdomen/GI: Reports Abdominal Pain, Nausea and Vomiting
: Reports No Symptoms
Musculoskeletal: Reports No Symptoms
Skin: Reports No Symptoms
Neurological: Reports No Symptoms
Endocrine: Reports No Symptoms
Hematologic/Lymphatic: Reports No Symptoms
Psych: Reports No Symptoms
Physical Exam
Vital Signs
Vital Signs
Temp Pulse Resp BP Pulse Ox
98.5 F 84 16 135/100 98
08/15/24 11:07 08/15/24 12:19 08/15/24 13:00 08/15/24 12:19 08/15/24 13:11
Physical Exam
General: Well Developed, Well Nourished and No Apparent Distress
HEENT: NormoCephalic, Moist mucous membranes and Atraumatic
Respiratory: Clear
Cardiac: S1/S2 and Regular Rhythm; No Murmur or Rub
GI: Soft, Non Tender, Non Distended, Normal Bowel Sounds and Tender (Epigastric); No Organomegaly
Rectal: Deferred by Provider
Musculoskeletal: No Clubbing, No Cyanosis and No Edema
Skin: No Rash
Neuro: AO x 3 and Nonfocal/grossly intact
Psych: Calm
Laboratory Results
-
08/15/24 11:14
08/15/24 11:14
Laboratory Results
Total Bilirubin 1.3 mg/dl (0.2-1.3) 08/15/24 11:14
AST 149 U/L (14-36) H 08/15/24 11:14
ALT 72 U/L (0-35) H 08/15/24 11:14
Alkaline Phosphatase 95 U/L (38-126) 08/15/24 11:14
Lipase 141 U/L (23-300) 08/15/24 11:14
Data Reviewed
-
CT Scan: Report Reviewed by me
Lab Data: Labs Reviewed by me
Impression/Plan
-
# Alcoholic gastritis/alcoholic ketoacidosis
-CO2 12, AST 08/07/1947, ALT 72
-CT abdomen pelvis with impression of No acute pathology of the abdomen or pelvis identified.Severe hepatic fatty infiltration.Mild hepatomegaly.
- clear Liquid diet
-Zofran as needed for nausea vomiting
-Dilaudid as needed for pain
-Fluids continued
-IV PPI bid
#Alcohol Use Disorder
#Alcohol Withdrawal
- IVF support, antiemetics, etc.
- Follow for symptoms of withdrawal and treat with PRN BZDs.
- Thiamine, folate, MVI replacement.
-Monitor MSAs score
#Anxiety / Depression
#PTSD
#ADHD
- Continue current psychotropic med regimen.
Hypothyroidism
- Continue current T4 replacement.
-TSH 1.53
DVT Prophylaxis: Lovenox
Code Status: Full
[2024-08-15] MEDS: MULTIVITAMIN 1011 ML IV (14:51)
[2024-08-15] MEDS: MULTIVITAMIN 1011 MG IV (14:51)
--- NOTE | 2024-08-15 14:55 | W.PN.UPDATE ---
Update Note
Progress Note Update
This is an addendum to the H&P written by she was Farhan on 08/15/2024. Patient seen and examined independently with SYSTEM SAFETY ENGINEER.
39-year-old female past medical history of hypothyroidism, depression, alcohol use disorder, anxiety presenting with vomiting with some blood in the vomit, abdominal pain concerning for alcohol withdrawal. She drinks 750 cc every day of vodka.
Last drank in the morning. Alcohol level of 132.
Patient with alcohol withdrawal. Patient with Jamila-Bone tear from vomiting. Alcohol withdrawal protocol. Phenobarbital protocol. Thiamine and folate. IV fluids. IV Protonix. Clear liquids.
--- NOTE | 2024-08-15 15:21 | EDRN ---
Per [facility] rep pt is interested in Vivitrol, helps w cravings and is given monthly. [facility] rep states insurance needs to be run to see if it'll be covered and/or how much it would cost.
[2024-08-15] MEDS: PHENOBARBITAL 104 MG IV (19:31)
[2024-08-15] MEDS: NSS (PRESERVATIVE FREE) 10 ML IV (19:34)
[2024-08-15 19:55] LABS: GGTP 138 U/L (12-43); Magnesium 1.7 mg/dl (1.6-2.3); Phosphorus 3.4 mg/dl (2.5-4.5)
[2024-08-15 20:01] LABS: B-Hydroxybutyrate 5.33 mmol/L (0.02-0.27)
[2024-08-15] MEDS: THIAMINE INJECTION 200 MG IV (21:45)
[2024-08-15] MEDS: PHENOBARBITAL 97.5 MG IV (21:51)
--- NOTE | 2024-08-15 23:00 | PTCARENOTE ---
Patient received from ED via stretcher. Patient anxious, tearful at times. Patient reports she drinks approximately 750ml of vodka a day. Reports last drink was the morning of 08/15. Vitals WNL. Denies nausea, pain. Fall precautions reviewed. Patient
placed on tele monitor, call gomez within reach. POC reviewed. Care ongoing, will continue to monitor.
[2024-08-16 04:10] VITALS: BP 136/86
[2024-08-16] MEDS: SYNTHROID PO ×2 (05:10→05:18)
[2024-08-16] MEDS: ZOFRAN 4 MG IV (05:10)
[2024-08-16] MEDS: ATIVAN 1 MG PO ×3 (05:22→20:46)
[2024-08-16 05:48] LABS: APTT 26.4 Sec (23.4-35.0)
[2024-08-16 06:07] LABS: Blood Urea Nitrogen 9 mg/dl (7-17); Calcium 8.4 mg/dl (8.4-10.2); Carbon Dioxide 21 mmol/L (22-30); Chloride 94 mmol/L (98-107); Estimated Creatinine Clearance > 125 ml/min; Glucose 83 mg/dl (70-99); Potassium 3.7 mmol/L (3.5-5.1); Sodium 130 mmol/L (135-145); eGFR > 60.00
[2024-08-16 07:22] VITALS: BP 114/71
[2024-08-16] MEDS: FOLVITE 1 MG PO (09:20)
[2024-08-16] MEDS: NSS (PRESERVATIVE FREE) 10 ML IV (09:21)
[2024-08-16] MEDS: PROTONIX IV 40 MG IV (09:21)
[2024-08-16] MEDS: PHENOBARBITAL 97.5 MG IV ×3 (09:21→21:59)
[2024-08-16] MEDS: THIAMINE INJECTION 200 MG IV ×2 (09:27→20:47)
[2024-08-16 11:07] VITALS: BP 140/100
[2024-08-16] MEDS: NSS 1000 IV (12:31)
--- NOTE | 2024-08-16 12:39 | W.PN.HOSP.TC ---
Today's Communication/Plan
-
See plan
Assessment / Plan
Assessment / Plan
Impression:
Severe alcohol use disorder.
Alcohol intoxication
At risk for alcohol withdrawal.
Fatty liver secondary to alcohol use.
Elevated LFTs.
Hyponatremia.
Hematemesis on presentation
Other conditions:
Hypothyroidism
Plan:
Severe alcohol use disorder.
Presents with alcohol intoxication and risk for alcohol withdrawal.
Continue MSAS protocol with lorazepam
Continue phenobarbital taper
Continue thiamine
nursing surgical services director consultation
Fatty liver by imaging.
Suspect alcohol induced hepatitis.
Monitor LFTs
Nausea with hematemesis on presentation. No recurrence since admission
Stable hemoglobin
Suspect Jamila-Bone tear.
Okay for regular diet
Transition to oral PPI.
Continue antiemetics
Hyponatremia
Clinically euvolemic.
Check urine awesome
Check TSH
Monitor sodium level closely.
If worsening, consider free water restriction
Stop IV fluids for now as patient has sufficient oral intake.
Hypothyroidism
Check TSH
Continue levothyroxine
Anticipated Discharge: 24 - 48 hours
Subjective/Interval History
-
Date of Service: August 16, 2024
Objective Data
-
Labs:
Laboratory Results
08/16/24
05:04
APTT 26.4
Sodium 130 L D
Potassium 3.7
Chloride 94 L
Carbon Dioxide 21 L
BUN 9
Creatinine 0.5 L
Glucose 83
Calcium 8.4
Vital Signs:
Vital Signs
Temp Pulse Resp BP Pulse Ox
98.2 F 88 18 140/100 98
08/16/24 11:07 08/16/24 11:07 08/16/24 11:07 08/16/24 11:07 08/16/24 11:07
I&O
08/15/24 08/16/24 08/17/24
06:59 06:59 06:59
Intake Total 960 / 960
Balance 960 / 960
Physical Exam
-
General: Well Developed and No Apparent Distress
HEENT: Normocephalic, Atraumatic and Moist Mucous Membranes
Respiratory: Clear to Auscultation
Cardiac: Regular Rhythm and S1/S2; Negative Murmur, Rub or Gallop
GI: Soft, Nontender, Nondistended and Normal Bowel Sounds; Negative Organomegaly
Rectal: Deferred by Provider
Musculoskeletal: No Clubbing, No Cyanosis and No Edema
Skin: Negative Rash
Neuro: Nonfocal/Grossly Intact
[2024-08-16 12:53] VITALS: BMI 27.5
[2024-08-16 14:50] LABS: TSH 3.31 uIU/ml (0.47-4.68)
[2024-08-16 15:13] VITALS: BP 120/87
[2024-08-16 15:24] LABS: Urine Albumin Negative (Neg - Trace); Urine Bilirubin Negative (Negative); Urine Character Clear (Clear); Urine Color Yellow; Urine Glucose Negative (Negative); Urine Ketone Trace (Negative); Urine Leukocyte Negative (Negative); Urine Nitrite Negative (Negative); Urine Occult Blood Negative (Negative); Urine Specific Gravity 1.005 (<1.030); Urine Urobilinogen Negative (Neg - 1+)
[2024-08-16 15:32] LABS: Osmolality Urine 119 mOsm/kg (300-900)
[2024-08-16 15:47] LABS: Amphetamines Negative (Negative); Barbiturates Positive (Negative); Benzodiazepines Positive (Negative); Buprenorphine Negative (Negative); Cocaine Negative (Negative); Marijuana Negative (Negative); Methadone Negative (Negative); Methamphetamines Negative (Negative); Opiates Negative (Negative); Phencyclidine Negative (Negative); Tricyclic Antidepressants Negative (Negative)
--- NOTE | 2024-08-16 16:26 | CM ---
Alert awake oriented patient who lives alone in an apartment with 30 steps to enter .Her 2 children 12yo 9 yo are with her on weekends.She is independent in driving and in all activities of daily living.Offered VN she declined.Pt saw Nelly and she
said she was given out pt recourses that she will follow up with at home.
No adaptive devices
[place] [facility] rehab x3 mon and 2 week Epi [facility] in patient
Pharmacy [facility]
PLAN Home with [facility] information
[2024-08-16 16:29] LABS: Fentanyl, Urine Negative (Negative)
[2024-08-16 19:41] VITALS: BP 132/94
[2024-08-16] MEDS: TYLENOL 650 MG PO (20:01)
[2024-08-16 23:50] VITALS: BP 129/88
[2024-08-17 03:34] VITALS: BP 119/82
[2024-08-17] MEDS: SYNTHROID 50 MCG PO (06:40)
[2024-08-17 07:31] VITALS: BP 116/86
[2024-08-17 07:34] LABS: ALT (SGPT) 60 U/L (0-35); AST (SGOT) 113 U/L (14-36); Albumin 4.9 g/dl (3.5-5.0); Alkaline Phosphatase 73 U/L (38-126); Blood Urea Nitrogen 13 mg/dl (7-17); Calcium 9.4 mg/dl (8.4-10.2); Carbon Dioxide 28 mmol/L (22-30); Chloride 94 mmol/L (98-107); Direct Bilirubin 0.1 mg/dl (0.0-0.4); Estimated Creatinine Clearance > 125 ml/min; Glucose 108 mg/dl (70-99); Potassium 3.7 mmol/L (3.5-5.1); Sodium 134 mmol/L (135-145); Total Bilirubin 1.8 mg/dl (0.2-1.3); Total Protein 7.3 g/dl (6.3-8.2); eGFR > 60.00
[2024-08-17] MEDS: PHENOBARBITAL 97.5 MG IV ×2 (08:33→15:52)
[2024-08-17] MEDS: FOLVITE 1 MG PO (08:35)
[2024-08-17] MEDS: THIAMINE INJECTION 200 MG IV ×2 (08:35→20:22)
[2024-08-17] MEDS: PROTONIX 40 MG PO (08:35)
[2024-08-17 11:13] VITALS: BP 121/85
[2024-08-17] MEDS: ZOFRAN 4 MG IV (11:19)
--- NOTE | 2024-08-17 14:55 | W.PN.HOSP.TC ---
Today's Communication/Plan
-
Aborted DT.
Feels jittery and anxious, although doing relatively well on phenobarbital taper.
Assessment / Plan
Assessment / Plan
Impression:
Severe alcohol use disorder.
Alcohol intoxication
At risk for alcohol withdrawal.
Fatty liver secondary to alcohol use.
Elevated LFTs.
Hyponatremia.
Hematemesis on presentation
Other conditions:
Hypothyroidism
Plan:
Severe alcohol use disorder.
Presents with alcohol intoxication and risk for alcohol withdrawal.
Continue MSAS protocol with lorazepam
Continue phenobarbital taper
Continue thiamine
guest services manager consultation
Fatty liver by imaging.
Suspect alcohol induced hepatitis.
Monitor LFTs
Nausea with hematemesis on presentation. No recurrence since admission
Stable hemoglobin
Suspect Jamila-Bone tear.
Okay for regular diet
Transition to oral PPI.
Continue antiemetics
Hyponatremia
Clinically euvolemic.
Improving
TSH within normal limits
Monitor sodium level closely.
If worsening, consider free water restriction
Stop IV fluids for now as patient has sufficient oral intake.
Hypothyroidism
Continue levothyroxine
Anticipated Discharge: 24 - 48 hours
Subjective/Interval History
-
Date of Service: August 17, 2024
Objective Data
-
Labs:
Laboratory Results
08/17/24
06:03
Sodium 134 L
Potassium 3.7
Chloride 94 L
Carbon Dioxide 28
BUN 13
Creatinine 0.6
Glucose 108 H
Calcium 9.4
Total Bilirubin 1.8 H
AST 113 H
ALT 60 H
Alkaline Phosphatase 73
Vital Signs:
Vital Signs
Temp Pulse Resp BP Pulse Ox
98.7 F 86 17 121/85 99
08/17/24 11:13 08/17/24 11:13 08/17/24 11:13 08/17/24 11:13 08/17/24 11:13
I&O
08/16/24 08/17/24 08/18/24
06:59 06:59 06:59
Intake Total 960 / 960 2760 / 2760
Balance 960 / 960 2760 / 2760
Physical Exam
-
General: Well Developed and No Apparent Distress
HEENT: Normocephalic, Atraumatic and Moist Mucous Membranes
Respiratory: Clear to Auscultation
Cardiac: Regular Rhythm and S1/S2; Negative Murmur, Rub or Gallop
GI: Soft, Nontender, Nondistended and Normal Bowel Sounds; Negative Organomegaly
Rectal: Deferred by Provider
Musculoskeletal: No Clubbing, No Cyanosis and No Edema
Skin: Negative Rash
Neuro: Nonfocal/Grossly Intact
[2024-08-17 14:56] VITALS: BP 121/91
[2024-08-17] MEDS: TYLENOL 650 MG PO (18:16)
[2024-08-17 19:49] VITALS: BP 125/89
[2024-08-17] MEDS: LUMINAL 64.8 MG PO (22:18)
[2024-08-17] MEDS: BENADRYL 25 MG PO (23:19)
[2024-08-17 23:45] VITALS: BP 129/81
[2024-08-18 03:57] VITALS: BP 120/87
[2024-08-18] MEDS: SYNTHROID 50 MCG PO (05:07)
[2024-08-18] MEDS: BENADRYL 25 MG PO (05:07)
[2024-08-18 07:05] VITALS: BP 102/71
[2024-08-18 07:27] LABS: ALT (SGPT) 66 U/L (0-35); AST (SGOT) 98 U/L (14-36); Albumin 4.1 g/dl (3.5-5.0); Alkaline Phosphatase 76 U/L (38-126); Blood Urea Nitrogen 13 mg/dl (7-17); Calcium 9.6 mg/dl (8.4-10.2); Carbon Dioxide 26 mmol/L (22-30); Chloride 96 mmol/L (98-107); Direct Bilirubin 0.1 mg/dl (0.0-0.4); Estimated Creatinine Clearance > 125 ml/min; Glucose 110 mg/dl (70-99); Sodium 132 mmol/L (135-145); Total Protein 6.3 g/dl (6.3-8.2); eGFR > 60.00
[2024-08-18 07:34] LABS: Potassium 3.4 mmol/L (3.5-5.1)
[2024-08-18] MEDS: LUMINAL 64.8 MG PO (07:46)
[2024-08-18] MEDS: PROTONIX 40 MG PO (07:46)
[2024-08-18] MEDS: THIAMINE INJECTION 200 MG IV (07:47)
[2024-08-18] MEDS: FOLVITE 1 MG PO (07:47)
[2024-08-18 11:05] VITALS: BP 122/91
[2024-08-18] MEDS: KCL 40 MEQ PO (11:16)
--- NOTE | 2024-08-18 12:19 | W.DS.TRANS ---
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
-
Discharge Instructions:
Discharge Diagnosis/Procedures Severe alcohol use disorder.
Alcohol intoxication
At risk for alcohol withdrawal.
Fatty liver secondary to alcohol use.
Elevated LFTs.
Hyponatremia.
Hematemesis on presentation
Diet Regular
Instructions:
Stand-Alone Forms:
Changes to Home Medications: No
Discharge Medications:
DC Medications w/original date entered in [employer]
levothyroxine 50 mcg tablet (Synthroid) 50 mcg PO DAILY Thyroid 08/15/24
pantoprazole 40 mg tablet,delayed release (Protonix) 40 mg PO DAILY Gastrointestinal Issue 08/15/24
prazosin 1 mg capsule 1 mg PO HS 08/15/24
hydroxyzine HCl 50 mg tablet 50 mg PO Q6HPRN PRN anxiety #30 tabs 08/18/24
Home Medication Changes
Pending Results: No
--- NOTE | 2024-08-18 12:32 | CM ---
Met with patient at bedside
Patient reported that she feels much better; has [facility] Outpatient information
Plan: Discharge to home; friend will transport
== END 2024-08-18 13:10 | disposition home or self-care (01) | DRG 896 ==
LOC: 3 WEST ACU 15:06
PROVIDERS: Emergency Medicine; Nurse Practitioner Family; Registered Nurse; ADMITTING PHYSICIAN Hospitalist; ATTENDING PHYSICIAN Internal Medicine; EMERGENCY PHYSICIAN Emergency Medicine
DX: F10.239 Alcohol dependence with withdrawal, unspecified (principal); K22.6 Gastro-esophageal laceration-hemorrhage syndrome; E87.1 Hypo-osmolality and hyponatremia; E87.29 Other acidosis; K70.0 Alcoholic fatty liver; F32.A Depression, unspecified; F41.9 Anxiety disorder, unspecified; E03.9 Hypothyroidism, unspecified; J45.909 Unspecified asthma, uncomplicated; F17.290 Nicotine dependence, other tobacco product, uncomplicated; Z79.890 Hormone replacement therapy; F90.9 Attention-deficit hyperactivity disorder, unspecified type; F43.10 Post-traumatic stress disorder, unspecified; K29.20 Alcoholic gastritis without bleeding
CPT/HCPCS: 74177; 80048; 80053; 80306; 80307; 81003; 82010; 82077; 82248; 82977; 83690; 83735; 83935; 84100; 84443; 84703; 85025; 85730; 93005; 96361; 96374; 96375; 99285; Q9967

== ENCOUNTER 2024-08-27 19:06 | Emergency (ER) | payer OTHER, SELFPAY ==
[2024-08-27 19:09] VITALS: BP 138/83
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
[2024-08-27 20:06] LABS: % Eosinophils 1.8 % (0-6); % Immature Granulocytes 0.4 % (0-0.5); % Lymphocytes 32.9 % (20.5-51.1); % Monocytes 6.1 % (1.7-9.3); % Neutrophils 56.8 % (42.2-75.2); Absolute Basophils 0.1 10^3/uL (0-0.2); Absolute Eosinophils 0.1 10^3/uL (0-0.7); Absolute Lymphocytes 1.8 10^3/uL (1.2-3.4); Absolute Monocytes 0.3 10^3/uL (0.1-0.6); Absolute Neutrophils 3.2 10^3/uL (1.4-6.5); Hematocrit 37.9 % (37.0-47.0); Hemoglobin 13.4 g/dL (12.0-16.0); Mean Corp Hgb Conc. 35.4 g/dL (33.0-37.0); Mean Corpuscular Hgb 33.7 pg (27.0-31.0); Mean Corpuscular Volume 95.2 fL (81.0-99.0); Mean Platelet Volume 8.9 fL (7.4-10.4); Nucleated Red Blood Cells % 0 %; Platelet Count 316 10^3/uL (130-400); Red Blood Cell Count 3.98 10^6/uL (4.20-5.40); White Blood Cell Count 5.6 10^3/uL (4.8-10.8)
[2024-08-27 20:32] LABS: ALT (SGPT) 137 U/L (0-35); AST (SGOT) 246 U/L (14-36); Albumin 4.8 g/dl (3.5-5.0); Alkaline Phosphatase 99 U/L (38-126); Blood Urea Nitrogen 11 mg/dl (7-17); Calcium 9.4 mg/dl (8.4-10.2); Carbon Dioxide 18 mmol/L (22-30); Chloride 103 mmol/L (98-107); Glucose 86 mg/dl (70-99); Potassium 3.8 mmol/L (3.5-5.1); Sodium 141 mmol/L (135-145); Total Bilirubin 0.5 mg/dl (0.2-1.3); Total Protein 7.1 g/dl (6.3-8.2); eGFR > 60.00
[2024-08-27 20:47] LABS: Alcohol 387 mg/dl
[2024-08-27 21:56] VITALS: BP 137/86
== END 2024-08-27 22:15 | disposition home or self-care (01) ==
LOC: EMR 19:06
PROVIDERS: EMERGENCY PHYSICIAN Student in an Organized Health Care Education/Training Program
DX: S06.0XAA Concussion with loss of consciousness status unknown, initial encounter (principal); V89.2XXA Person injured in unspecified motor-vehicle accident, traffic, initial encounter; F17.290 Nicotine dependence, other tobacco product, uncomplicated
CPT/HCPCS: 99284; 70450; 80053; 82077; 85025

== ENCOUNTER 2024-10-31 04:54 | Inpatient (IN) | payer OTHER, SELFPAY ==
[2024-10-31] VITALS (29 sets, daily range): BP systolic 113–182; BP diastolic 85–129; BMI 26.4; BMI 25.5
[2024-10-31] MEDS: ZOFRAN 4 MG IV ×4 (02:43→20:29)
[2024-10-31] MEDS: NSS 1000 IV (02:44)
[2024-10-31 03:00] LABS: % Eosinophils 0.3 % (0-6); % Immature Granulocytes 0.5 % (0-0.5); % Lymphocytes 16.8 % (20.5-51.1); % Monocytes 5.6 % (1.7-9.3); % Neutrophils 75.8 % (42.2-75.2); Absolute Basophils 0.1 10^3/uL (0-0.2); Absolute Monocytes 0.3 10^3/uL (0.1-0.6); Absolute Neutrophils 4.3 10^3/uL (1.4-6.5); Hematocrit 43.9 % (37.0-47.0); Hemoglobin 15.8 g/dL (12.0-16.0); Mean Corpuscular Hgb 35.2 pg (27.0-31.0); Mean Corpuscular Volume 97.8 fL (81.0-99.0); Mean Platelet Volume 9.8 fL (7.4-10.4); Nucleated Red Blood Cells % 0 %; Platelet Count 170 10^3/uL (130-400); Red Blood Cell Count 4.49 10^6/uL (4.20-5.40); Red Cell Dist. Width 12.1 % (11.5-14.5); White Blood Cell Count 5.7 10^3/uL (4.8-10.8)
--- NOTE | 2024-10-31 03:06 | ED.GENMED ---
History of Present Illness
General
Chief Complaint: Abdominal Symptoms
Source: patient and records
Exam Limitations: none
Time Seen by Provider: 10/31/24 02:09
Nursing documentation reviewed up to this point in time: agreed with
History of Present Illness
History of Present Illness:
39-year-old female with a past medical history of hypertension, asthma, alcohol use presents to the emergency room for evaluation of multiple complaints. Patient reports that she started feeling unwell about 4 to 5 days ago. She says that she
initially started with headache, earache, cough, congestion, fevers/chills, body aches. The symptoms were continued for a few days and then about 2 days ago she started with nausea and vomiting as well. Because of the vomiting she has been unable
to have alcohol for about 24 hours and she believes that she is starting to withdraw from alcohol. She has had tremors, anxiety on top of above symptoms. Patient also notes during HPI that she recently started OCPs about 2 weeks ago after she
finished her period. She says when she started to feel unwell she stopped the OCPs and has had some irregular bleeding since.
Past History
Past History
ED Past Medical History: Asthma, Hypothyroidism and Psychiatric (Anxiety, depression, alcohol abuse, PTSD< ADHD)
ED Past Surgical History: Other (Skin graft right hand. )
Social History
Tobacco: Vaping (Former Cig smoker)
Alcohol: Chronic alcoholic (Daily bottle of Vodka)
Drug: None
Personal:
Living: with family
Employment: Employed
Review of Systems
Review of Systems
All Other Systems: ROS reviewed and negative except as documented in HPI and ROS
Constitutional: Reports fever, fatigue and chills
EENT: Reports runny nose; Denies sore throat
Respiratory: Reports cough; Denies trouble breathing
Cardiac: Denies chest pain
ABD/GI: Reports nausea and vomiting; Denies abdominal pain or diarrhea
: Reports bleeding; Denies dysuria or flank pain
Musculoskeletal: Reports muscle pain (Myalgias); Denies neck pain or back pain
Neurological: Reports headache and other (Tremors)
Psychiatric: Reports anxiety
Phy Exam
Physical Exam
Physical Exam:
General: Awake, alert, oriented x3; holding emesis bag, vomiting
Head: Normocephalic, atraumatic
Eyes: Conjunctiva normal, pupils equal round and reactive to light bilaterally, sclera anicteric
Nose: Rhinorrhea
Throat: Airway intact, dry mucous membranes
Neck: Trachea midline, supple without meningismus
Lungs: Clear to auscultation bilaterally, no wheezing, rales, rhonchi
Heart: Tachycardia with regular rhythm, no murmurs, gallops, or rubs
Abd: Soft, non distended, nontender
Neuro: Resting tremor, cranial nerves grossly intact, motor and sensory intact
Skin: Warm, moist to the touch
Extremities: Warm well-perfused with no edema
Scores
Heart Failure Risk
Heart Failure Risk Score: Not Applicable
Heart Score for Chest Pain Patients
STEMI patient?: Not applicable
Withdrawal Assessment of Alcohol
Withdrawal Assessment Completed?: Yes
Nausea and Vomiting: Intermittent nausea with dry heaves
Tactile Disturbances: None
Tremor: Moderate, with patient's arms extended
Auditory Disturbances: Not present
Paroxysmal Sweats: No sweat visible
Visual Disturbances: Not present
Anxiety: Moderately anxious, or guarded, so anxiety is inferred
Headache, Fullness in Head: Mild
Agitation: Moderately fidgety and restless
Orientation and clouding of sensorium: Oriented and can do serial additions
Total CIWA Score: 18
Alcohol Withdrawal Medication Recommendation: Equal to MSAS Score 8-11. Lorazepam 1-2mg IV NOW & re-assess q1hr
Course
Orders/Labs/Results
Orders:
Orders
10/31/24 02:10
Test Result ONCE
10/31/24 02:23
0.9% Sodium Chloride 1000 ml [Nss] 1,000 ml IV BOLUS
Ondansetron Injectable [Zofran] 4 mg IV NOW STA
10/31/24 02:42
Alcohol Urgent
Complete Blood Count/With Diff Urgent
Comprehensive Metabolic Panel Urgent
HCG, Serum Qualitative Screen Urgent
Lipase Urgent
10/31/24 02:43
COVID-19 Antigen Urgent
Source: Nasal Swab
Influenza A+B Rapid Molecular Urgent
JASPREET Source: Nasal Swab
Specimen Description:
10/31/24 03:06
Lorazepam [Ativan] 1 mg IV NOW STA
10/31/24 03:27
Electrocardiogram (*1) Urgent
Reason for Study: QTc Monitoring
EKG- Treatment ONCE
10/31/24 03:33
Thiamine Injection 100 mg IV NOW STA
10/31/24 03:34
FOLic ACID [Folvite] 1 mg 0.9% Sodium Chloride 50 ml [Nss] 50 ml IV ONCE
10/31/24 04:02
Diphenhydramine [Benadryl] 25 mg IV NOW STA
Metoclopramide [Reglan] 10 mg IV NOW STA
10/31/24 04:03
Acetaminophen 1000MG/100Ml [Ofirmev] 1,000 mg in 100 ml IV ONCE
Acetaminophen IV Indication:: ED Narcotic Naive Pt-ONCE
Abnormal Lab Results
10/31/24
02:42
MCH 35.2 H pg
(27.0-31.0)
Absolute Lymphs (auto) 1.0 L 10^3/uL
(1.2-3.4)
Neutrophils % 75.8 H %
(42.2-75.2)
Lymphocytes % 16.8 L %
(20.5-51.1)
Chloride 96 L mmol/L
(98-107)
Carbon Dioxide 14 L* mmol/L
(22-30)
Glucose 141 H mg/dl
(70-99)
Calcium 10.6 H mg/dl
(8.4-10.2)
Total Bilirubin 2.0 H mg/dl
(0.2-1.3)
AST 226 H U/L
(14-36)
ALT 106 H U/L
(0-35)
Total Protein 9.4 H g/dl
(6.3-8.2)
Albumin > 6.0 H g/dl
(3.5-5.0)
10/31/24 02:42
10/31/24 02:42
Vital Signs
Initial and Last Documented VS:
Initial Vital Signs
Temp Pulse Resp BP Pulse Ox
36.9 C 120 24 182/112 98
10/31/24 02:04 10/31/24 02:04 10/31/24 02:04 10/31/24 02:04 10/31/24 02:04
Last Documented Vital Signs
Temp Pulse Resp BP Pulse Ox
36.9 C 102 24 156/115 98
10/31/24 02:04 10/31/24 02:52 10/31/24 02:52 10/31/24 02:48 10/31/24 02:04
MDM/Problems Addressed
Differential Diagnosis Includes:
Viral syndrome, pancreatitis, gastritis, UTI, alcohol withdrawal
MDM/Problems Addressed:
39-year-old female presents for evaluation of multiple complaints�started with flulike illness for 5 days ago progressed to nausea and vomiting which resulted in cessation of alcohol abruptly. She believes she is started to have alcohol withdrawal
symptoms as well. Vitals as above�notably hypertensive, tachycardic with mild tachypnea. Physical exam as documented. Will plan to place an IV check labs including a CBC and a CMP, lipase, hCG. Check alcohol level. Check swabs for COVID and
flu. Check urinalysis. Treat with Zofran, Ativan for suspected alcohol withdrawal. Provide IV fluids. Monitor closely reassess after the above.
Labs reviewed: CBC unremarkable. Notably normal hemoglobin (reported some vaginal bleeding recently). CMP shows anion gap metabolic acidosis suspect alcoholic/starvation ketoacidosis. LFTs marginally elevated with AST greater than ALT�stable from
prior. Lipase is normal. hCG negative. COVID and flu negative. Suspect likely viral syndrome leading to acute alcohol withdrawal and ketoacidosis. Treat with thiamine/folate, fluids. Ativan as needed for withdrawal. Manage symptomatically.
Admit for continued treatment. Discussed with hospitalist.
Chronic conditions affecting care:
Alcohol use
Acute Exacerbation and/or Progression of Chronic Illness:
Acutely hypertensive
Acute Exacerbation and/or Progression of Chronic Illness: HTN
*Pulse Oximetry
Patient hypoxic: no
*EKG
Interpreted by ED Provider?: Yes
Heart Rate: 116
Rate: tachycardiac
Rhythm: sinus
Jeremiah: normal axis
Interval: normal interval and normal QT interval
QRS Pattern: normal QRS
Ischemia: non-specific ST changes
*Critical Care Note
Total Time (30-74mins, 75-104mins- exclusive of procedures): Not Applicable
Data Reviewed
Review of Other/Old Records Reveals: Labs and Records
Source: patient and records
Patient Management
Discussion with other providers: Hospitalist (Discussed with hospitalist)
Escalation/DeEscalation of care consider admission/obs:
Admission indicated
ED Attending Note
-
Portions of this chart may have been created with voice recognition software.� Occasional wrong word or��sound alike� substitutions may have occurred due to the inherent limitations of voice recognition software.
Discharge Plan
Departure
Patient Disposition: Admit
Date of Disposition: 10/31/24
Time of Disposition: 04:14
Admit to doctor: Larry
Presentation/result/management discussed w/ accepting MD/DO: Hospitalist
Discharge Problem:
Alcoholic ketoacidosis, Alcohol withdrawal, Nausea & vomiting
Prescriptions:
No Action
prazosin 1 mg Capsule
1 mg PO HS
Rx Instructions:
has it - doesn't take it
levothyroxine [Synthroid] 50 mcg Tablet
50 mcg PO DAILY
pantoprazole [Protonix] 40 mg Tablet,Delayed Release (Dr/Ec)
40 mg PO DAILY
hydroxyzine HCl 50 mg Tablet
50 mg PO Q6HPRN PRN (Reason: anxiety ) Qty: 30 0RF
sertraline 50 mg Tablet
50 mg PO DAILY
Wellbutrin
PO
Rx Instructions:
unknown dosage
Referrals:
UNKNOWN - PT DOES,NOT KNOW [Family Provider] -
Interventions
Interventions:
*Risk Screen - Suicide Last Done: 10/31/24 02:10
*General Assessment Last Done: 10/31/24 02:46
*Neglect/Abuse Screening Last Done: 10/31/24 02:10
*ED- Fall Risk Assessment Last Done: 10/31/24 02:10
*ED COVID-19 Vaccine History Last Done: 10/31/24 02:10
KD-Hrjuvo-Whxehlwvdp Assessment Last Done: 10/31/24 02:50
Discharge Date and Time
Print Language: BURUNDIAN
[2024-10-31 03:13] LABS: COVID-19 Antigen Negative (Negative)
[2024-10-31] MEDS: ATIVAN 1 MG IV ×2 (03:14→07:49)
[2024-10-31 03:16] LABS: HCG, Serum Qualitative Screen Negative
[2024-10-31 03:27] LABS: ALT (SGPT) 106 U/L (0-35); AST (SGOT) 226 U/L (14-36); Albumin > 6.0 g/dl (3.5-5.0); Alkaline Phosphatase 96 U/L (38-126); Blood Urea Nitrogen 11 mg/dl (7-17); Calcium 10.6 mg/dl (8.4-10.2); Carbon Dioxide 14 mmol/L (22-30); Chloride 96 mmol/L (98-107); Estimated Creatinine Clearance 98 ml/min; Glucose 141 mg/dl (70-99); Potassium 4.2 mmol/L (3.5-5.1); Sodium 143 mmol/L (135-145); Total Protein 9.4 g/dl (6.3-8.2); eGFR > 60.00
[2024-10-31 03:53] LABS: Alcohol 17 mg/dl; Lipase 97 U/L (23-300)
[2024-10-31] MEDS: THIAMINE INJECTION 100 MG IV (04:16)
[2024-10-31] MEDS: REGLAN 10 MG IV (04:17)
[2024-10-31] MEDS: BENADRYL 25 MG IV (04:17)
[2024-10-31] MEDS: OFIRMEV 100 IV (04:18)
[2024-10-31] MEDS: FOLVITE 50.2 MG IV (04:41)
--- NOTE | 2024-10-31 04:45 | HPS.HSE ---
Family Physician
-
Family Physician: NOT KNOW UNKNOWN - PT DOES
Chief Complaint
-
N/V
History of Present Illness
Patient is a 39y F with PMH significant for anxiety / depression and alcohol use disorder who presents to ED complaining of N/V. Patient states that she initially developed cough, sinus pain and headache about 4 days ago. She was feeling poorly
and had decreased PO intake. Yesterday she started to have N/V and could not keep anything down. She has had several episodes of N/V in the past 24 hours. Non-bloody emesis. No diarrhea. No fevers.
Patient drinks alcohol daily - 1/2 to 1 bottle of vodka daily on average. Her last drink was yesterday AM when N/V started. She was drinking less prior to that as she was not feeling well.
Patient had similar admission in August 2024 for alcohol withdrawal triggered by respiratory infection.
Medical History
Past Medical History
Past Medical History: Reports Other
Additional Past Medical History:
Alcohol abuse
Hypothyroid
Depression
Anxiety
Asthma
Past Surgical History: Reports Other
Additional Past Surgical History:
Right hand surgery
Social History
Tobacco: Vaping
Alcohol: Daily (750 mL)
Drug: Other (Occasional weed)
Living: Alone
Employment: Employed
Family History
Family History: Not pertinent
Allergies / Home Medications
Allergies reflects when Allergies were last updated in [employer].
Home Medications with original date entered in [employer]
Allergy/Medication List:
Allergies
Allergy/AdvReac Type Severity Reaction Status Date / Time
No Known Allergies Allergy Verified 10/31/24 02:04
Home Medications
levothyroxine 50 mcg tablet (Synthroid) 50 mcg PO DAILY Thyroid 08/15/24
pantoprazole 40 mg tablet,delayed release (Protonix) 40 mg PO DAILY Gastrointestinal Issue 08/15/24
prazosin 1 mg capsule 1 mg PO HS 08/15/24
hydroxyzine HCl 50 mg tablet 50 mg PO Q6HPRN PRN anxiety #30 tabs 08/18/24
Wellbutrin PO 10/31/24
sertraline 50 mg tablet 50 mg PO DAILY 10/31/24
Patient states that she is 'supposed' to take these medications, but she rarely does.
Review of Systems
-
History Source: Patient
A 12 point ROS was completed and negative except as noted: Yes
Constitutional: Reports Fatigue and Chills; Denies Fever
EENT: Reports Sore Throat
Respiratory: Reports Cough; Denies Trouble Breathing
Cardiac: Denies Chest Pain or Palpitations
Abdomen/GI: Reports Abdominal Pain, Nausea, Vomiting and Anorexia; Denies Diarrhea, Constipated, Bloody Stools or Black Stools
: Denies Dysuria, Frequency or Flank Pain
Musculoskeletal: Denies Joint Pain or Edema
Neurological: Reports Headache; Denies Dizzy
Psych: Denies Depression or Anxiety
Physical Exam
Vital Signs
Vital Signs
Temp Pulse Resp BP Pulse Ox
98.4 F 112 18 165/115 98
10/31/24 02:04 10/31/24 04:30 10/31/24 04:30 10/31/24 04:30 10/31/24 04:30
Physical Exam
General: Other (Ill-appearing 39y F mildly tremulous and diaphoretic.)
HEENT: Moist mucous membranes
Respiratory: Clear; No Wheezes, Rales or Rhonchi
Cardiac: S1/S2 and Tachycardia; No Murmur
GI: Soft, Non Distended, Normal Bowel Sounds and Other (Diffusely tender. Pos BS.)
Musculoskeletal: No Clubbing, No Cyanosis and No Edema
Neuro: AO x 3 and Other (Tremulous. Flushed appearance.)
Laboratory Results
-
10/31/24 02:42
10/31/24 02:42
Laboratory Results
Total Bilirubin 2.0 mg/dl (0.2-1.3) H 10/31/24 02:42
AST 226 U/L (14-36) H 10/31/24 02:42
ALT 106 U/L (0-35) H 10/31/24 02:42
Alkaline Phosphatase 96 U/L (38-126) 10/31/24 02:42
Lipase 97 U/L (23-300) 10/31/24 02:42
Impression/Plan
-
A/P: Patient is a 39y F with PMH significant for alcohol use disorder who presents to ED complaining of URI symptoms x 4 days and N/V x 24 hours.
Alcohol Use Disorder
Alcohol Withdrawal Syndrome
Alcoholic Ketoacidosis
- Admit for further evaluation and treatment.
- Supportive care including IVFs, antiemetics, etc.
- Phenobarbital taper.
- MSAS protocol with BZDs as needed for withdrawal symptoms.
- Follow for clinical improvement.
- Follow for improvement in anion gap metabolic acidosis.
- Thiamine, folate, MVI replacement.
URI Symptoms
- Likely viral illness that precipitated current withdrawal.
- COVID / Flu negative in the ED.
- Check CXR.
- Follow for any new / worsening symptoms.
Abnormal LFTs
- Likely secondary to alcohol use disorder +/- viral illness, etc.
- Check abd US for completeness.
- Follow for changes.
Anxiety / Depression
- Resume / restart sertraline for now.
- Patient notes that she is not compliant with prescribed medications.
Hypothyroidism
- Resume / restart T4 replacement.
- Update TFTs - noting that patient reports noncompliance with meds.
DVT Prophylaxis: SCDs
Code Status: Full
[2024-10-31] MEDS: PHENOBARBITAL 104 MG IV (05:50)
[2024-10-31] MEDS: TORADOL 15 MG IM (06:01)
[2024-10-31] MEDS: NSS (PRESERVATIVE FREE) 10 ML IV (07:49)
[2024-10-31] MEDS: PROTONIX IV 40 MG IV (07:49)
[2024-10-31] MEDS: FLUSH (NSS) 1 FLUSH IV (07:50)
[2024-10-31 09:17] LABS: TSH Reflex To Free T4 1.81 uIU/ml (0.47-4.68)
[2024-10-31] MEDS: LR 1000 IV (09:23)
[2024-10-31] MEDS: ZOLOFT 50 MG PO (09:25)
[2024-10-31] MEDS: THIAMINE INJECTION 200 MG IV ×2 (09:25→16:07)
[2024-10-31] MEDS: SYNTHROID 50 MCG PO (09:25)
--- NOTE | 2024-10-31 09:27 | PHANOTE ---
med rec note- called patient pharmacy to confirm medication, but unable to locate Wellbutrin, gabapentin, and Seroquel, trazodone and another medication patient trying to say but may being saying wrong and at this time i can not determine what she
means. patient also claims she taking some meds about 4/5 days but then also stated that most of them have note been taken in months or years. [facility] does not have a correct or update med list for patient. patient does have a HFA inhaler with her but
did not want to show us and had Protonix with her but she stated she has not been taken.
[2024-10-31 09:43] LABS: Magnesium 1.7 mg/dl (1.6-2.3)
[2024-10-31] MEDS: ATIVAN 2 MG IV (10:08)
[2024-10-31 10:20] LABS: Urine Albumin 4+ (Neg - Trace); Urine Bilirubin Negative (Negative); Urine Character Clear (Clear); Urine Color Yellow; Urine Glucose Negative (Negative); Urine Ketone 3+ (Negative); Urine Leukocyte Negative (Negative); Urine Nitrite Negative (Negative); Urine Occult Blood 3+ (Negative); Urine Specific Gravity 1.025 (<1.030); Urine Urobilinogen Negative (Neg - 1+)
[2024-10-31 10:40] LABS: Amphetamines Negative (Negative); Barbiturates Negative (Negative); Benzodiazepines Positive (Negative); Buprenorphine Negative (Negative); Cocaine Negative (Negative); Methadone Negative (Negative); Methamphetamines Negative (Negative); Opiates Negative (Negative); Phencyclidine Negative (Negative)
[2024-10-31 10:41] LABS: Marijuana Negative (Negative); Tricyclic Antidepressants Negative (Negative)
[2024-10-31 10:49] LABS: Urine Hyaline Cast 0-2 /LPF (0-2)
--- NOTE | 2024-10-31 10:50 | W.PN.HOSP.TC ---
Addendum entered and electronically signed by Lynda Carmona MD 10/31/24 13:15:
I saw and evaluated the patient independently. I reviewed the resident�s note and agree with findings and plan as documented by Dr. Vanegas.
GENERAL: well developed, well nourished, female--acutely ill appearing
HEENT: NC/AT
HEART: regular rate and rhythm, +S1, +S2--tachycardic
LUNGS : clear to auscultation bilaterally
ABDOM: soft, nontender, nondistended, + bowel sounds
EXT: no cyanosis, clubbing, or edema--left hand with splint on 4th and 5th fingers--4th finger appears bruised and swollen
NEUROLOGIC: tremulous
in basin next to her bed has coffee ground emesis with blood noted
Alcohol use disorder, alcohol withdrawal syndrome in setting of alcohol still in system (level = 17)--hypertensive, tachycardic, acidotic, tremulous, n/v--transfer pt to ICU--consult intensivists/GI--NPO/IVF/zofran/Protonix drip and octreotide
drip--Urine drug screen only positive for benzos, was initiated on those in the ED due to alcohol withdrawal--TSH within normal limits--follow K and mag--MSAS protocol--phenobarbital taper--thiamine/folate repletion
hematemesis--possibly Jamila Bone tear from n/v although with significant ETOH use, must consider varices--protonix drip and octreotide--GI consult--NPO/IVF
metabolic acidosis--AGAP 33--likely due to alcoholic/starvation ketosis--check beta hydroxybutyrate--VBG ordered by elementary school registrar
URI symptoms for 4 days--COVID/Flu negative--CXR ordered--follow for any worsening symptoms
Elevated LFTs--likely ETOH induced--AST/ALT elevated--continue to trend, most likely secondary to alcohol use--U/S abd ordered
Recent abnormal periods with increased bleeding--Will continue monitoring Hgb levels--Will need follow up management with ADMITTANCE ATTENDANT
Anxiety and Depression--Resume home meds as possible due to inability to keep food down
Hypothyroidism--TSH within normal limits--Continue with Levothyroxine as possible
DVT Proph--SCDs
Code Status-- Full code
Original Note:
Today's Communication/Plan
-
Continue supportive therapy and MSAS protocol. Transferred to ICU for further management as well.
Assessment / Plan
Assessment / Plan
Assessment:
39-year-old female with past medical history significant for alcohol use disorder, anxiety/depression, hypothyroidism came to the [facility] ED on 10/31/2024 due to recent increased respiratory symptoms including cough, sinus pain and
headache that started around 4 days ago along with increased nausea and vomiting. She has not been having anything by mouth and has not had any food since Monday. Patient says that her last drink was yesterday morning and has not had any alcohol
since then as she is extremely nauseous. She also complains of diffuse abdominal pain and recent abnormal periods with increased bleeding that started last week on Monday. In the ED, patient was found to be tachycardic, tremulous and started on
alcohol withdrawal therapy. While awaiting transport to IMU for further management, patient developed hematemesis. Patient was transferred to ICU level treatment and elementary school registrar and GI were consulted for further management.
Plan:
# Alcohol use disorder, alcohol withdrawal syndrome
-Patient still tachycardic, tremulous bones examined
-Continue supportive care with IV fluids, antiemetics
-Patient transferred to ICU due to recent hematemesis and continued symptoms
-Soldering Machine Operator Automatic consulted, input appreciated
-Urine drug screen only positive for benzos, was initiated on those in the ED due to alcohol withdrawal
-TSH within normal limits
-Bicarbonate low, lactated Ringer's to be given
-Full liquid diet as tolerated
-Thiamine, folate replacement
-MSAS protocol w/ benzodiazepine replacement as needed
-repeat CMP
-Phenobarbital taper
#URI symptoms for 4 days
-COVID/Flu negative
-CXR ordered
-follow for any worsening symptoms
#Hematemesis
-GI consulted, input appreciated
-History of possible Jamila-Bone tear as per previous admission for similar reason in August 2024
-checking PT/INR
#Elevated LFTs
-AST/ALT elevated
-continue to trend, most likely secondary to alcohol use
-U/S abd ordered
#Recent abnormal periods with increased bleeding
-Will continue monitoring Hgb levels
-Will need follow up management with ADMITTANCE ATTENDANT
-May need further workup if symptoms continue
#Anxiety and Depression
-Resume home meds as possible due to inability to keep food down
#Hypothyroidism
-TSH within normal limits
-Continue with Levothyroxine as possible
DVT Prophylaxis: SCDs
Code Status: Full
Anticipated Discharge: 24 - 48 hours
Subjective/Interval History
-
Date of Service: October 31, 2024
Patient was not feeling well when spoke with her this morning. She was continuously nauseous and retching while examined. Complaining of diffuse abdominal pain and tachycardia. Found to have hematemesis when examined later by Dr. Carmona.
Objective Data
-
Labs:
Laboratory Results
10/31/24 10/31/24
02:42 10:27
WBC 5.7
Hgb 15.8
Hct 43.9
Plt Count 170
PT Pending
INR Pending
Sodium 143
Potassium 4.2
Chloride 96 L
Carbon Dioxide 14 L*
BUN 11
Creatinine 0.7
Glucose 141 H
Calcium 10.6 H
Total Bilirubin 2.0 H
AST 226 H
ALT 106 H
Alkaline Phosphatase 96
Vital Signs:
Vital Signs
Temp Pulse Resp BP Pulse Ox
98.4 F 120 24 156/108 98
10/31/24 02:04 10/31/24 10:19 10/31/24 10:19 10/31/24 10:19 10/31/24 04:30
Review of Systems
-
History Source: Patient
Constitutional: Denies Fever or Chills
Cardiac: Denies Chest Pain, Palpitations or Syncope
Abdomen/GI: Reports Abdominal Pain, Nausea, Vomiting and Hematemesis
Genitourinary: Reports Vaginal Bleeding (Complaint of recent increased vaginal bleeding starting last week)
Musculoskeletal: Reports No Symptoms
Skin: Reports No Symptoms
Neuro: Reports Headache and Weakness; Denies Dizzy
Physical Exam
-
General: Appears in Distress, Conversant and Other (Nauseous and vomiting in bag)
HEENT: Normocephalic and Atraumatic
Respiratory: Clear to Auscultation and Non Labored Respirations
Cardiac: Regular Rhythm, S1/S2 and Tachycardic
GI: Soft, Nontender and Tender (Diffuse tenderness)
Musculoskeletal: No Clubbing, No Cyanosis and No Edema
Skin: Warm
Neuro: Awake, Alert and Oriented
Psych: Anxious
Data Reviewed
-
Labs: Labs Reviewed by me, Discussed with Physician and Discussed with Patient
[2024-10-31 10:56] LABS: Fentanyl, Urine Negative (Negative)
--- NOTE | 2024-10-31 11:12 | CON.GI ---
Addendum entered and electronically signed by Sam Little MD 10/31/24 13:30:
The patient was seen and examined by me independently in collaboration with the nurse practitioner.
Past medical history/social history/medications/allergies/family history reviewed.
Lab data and imaging data reviewed.
39-year-old female past medical history of alcohol abuse presenting with nausea, vomiting over 24 hours which then resulted in 1 episode of hematemesis. She also has alcohol withdrawal. Reviewing her history, in 2022 she had a similar presentation
underwent an upper endoscopy with Dr. Higginbotham and was found to have esophagitis as well as gastritis and duodenitis at that time. She came in again in August 2024 with hematemesis at that point GI was not consulted and it resolved without any
intervention.
Most likely, I suspect with ongoing nausea and vomiting which then led to an episode of hematemesis, this is most consistent with Jamila-Bone tear. She could also have esophagitis. My suspicion for variceal bleeding is very low as typically you
do not have nausea and vomiting followed by blood. Her platelets are normal, coags are normal, imaging from August shows fatty liver but no evidence of nodular liver or cirrhosis.
I discussed with anesthesia and given her metabolic acidosis from her alcohol, unless it was emergent they preferred for her to be optimized prior to procedure. She has had no further vomiting since this morning although she had 1 episode of clear
emesis since then.
At this time, recommend n.p.o., trend H&H, monitor for ongoing bleeding, continue PPI drip, although my suspicion is low I will add on octreotide drip and ceftriaxone. If she has ongoing vomiting blood, she will need upper endoscopy urgently today.
Addendum entered and electronically signed by DALTON Cruz 10/31/24 12:45:
add octreotide and ceftriaxone with EV within differential
Original Note:
Consultation
-
Date/Time Consultation Requested: 10/31/24 1020
Date/Time Consultation Performed: 10/31/24 1115
Requesting Provider: Eric Vanegas MD
Performing Provider: DALTON Mckeon, Eva Little MD
Reason for Consultation: hematemesis
Medical History
Chief Complaint / HPI
Chief Complaint: hematemesis
History of Present Illness:
Pt is a 39yo with hx anxiety/depression, HTN, asthma, PTSD, significant ETOH abuse disorder with multiple admission to ER and hospital for withdrawal. She has noted prior ETOH hepatitis, fatty liver, and prior hematemesis. In 2022 she
completed EGD with Dr. Higginbotham with no active bleeding source, mild severe esophagitis without bleeding, congestion, nodularity and texture change in stomach and duodenitis bx with neg H pylori, some focal necrosis on esophageal bx neg fungal organism
seen. She now presents with multiple complaints with headache, cough, congestion, fever along with nausea and vomiting. She also admitted to recent start of OCP 2 weeks prior. She is noted with concern for hematemesis in ER and after admission and
asked to eval . On admission noted with Co2 14, glucose 141, calcium 10.6, bili 2, AST 226, ALT 106, alk phos 96, albumin >6, neg HCG with normal CBC wtih normal platelets and INR pending. Tox screen + benzos. Also with arm fx with current brace in
place.
Wth vomiting pt admits to vomiting clear then blood with large volume red in ER. She was drinking propel that she states was clear in color. She also admits to wt loss 10 lbs last month, lower abdominal pain, constipation, vaginal bleeding
with irreg bleeding with start of BCP, and shakiness since stopping ETOH . No hx colonoscopy in past.
Past Medical History
Past Medical History: Asthma, HTN, Hypothyroidism, Psychiatric (anxiety/depression, PTSD) and Other (ETOH hepatitis 2021, fatty liver, esophagitis 2022 )
Past Surgical History: Other (skin graft to hand )
Social History
Tobacco: Vaping
Alcohol: Chronic Alcoholic (1/2 to 1 bottle vodka daily )
Drug: Marijuana (occasional )
Living: Other (roommate )
Employment: Employed
Family History
Family History: Other (mother and father with hx alcoholism)
Allergies / Home Medications
Allergy/AdvReac Type Severity Reaction Status Date / Time
No Known Allergies Allergy Verified 10/31/24 02:04
�Medication �Instructions �Recorded
levothyroxine 50 mcg tablet 50 mcg PO DAILY Thyroid 08/15/24
(Synthroid)
hydroxyzine HCl 50 mg tablet 50 mg PO Q6HPRN PRN anxiety 10/31/24
ondansetron 4 mg disintegrating 4 mg PO Q8H PRN nausea/vomiting 10/31/24
tablet
prazosin 1 mg capsule 1 mg PO HSPRN PRN nightmares 10/31/24
sertraline 50 mg tablet 50 mg PO DAILY Mental Health 10/31/24
tramadol 50 mg tablet 50 mg PO DAILYPRN PRN moderate pain 10/31/24
Review of Systems
-
History Source: Patient
Constitutional: Reports Weight Loss and Fatigue
EENT: Reports No Symptoms
Abdomen/GI: Reports Nausea, Vomiting (with burgundy emesis ) and Constipated
: Reports Other (vaginal bleeding )
Musculoskeletal: Reports No Symptoms
Skin: Reports No Symptoms
Neurological: Reports Weakness and Other (shakiness )
Hematologic/Lymphatic: Reports Bleeding
Vital Signs
Temp Pulse Resp BP Pulse Ox
98.4 F 120 24 156/108 98
10/31/24 02:04 10/31/24 10:19 10/31/24 10:19 10/31/24 10:19 10/31/24 04:30
Physical Exam
Exam
General: Well Developed, Well Nourished and No Apparent Distress
HEENT: Other (dry mucous membranes)
Respiratory: Clear
Cardiac: Other (tachy)
GI: Soft, Non Tender and Non Distended
Musculoskeletal: No Clubbing and No Cyanosis
Skin: Warm and Dry
Neuro: Awake, Alert and AO x 3
Psych: Calm
Results
WBC 5.7 10^3/uL (4.8-10.8) 10/31/24 02:42
Hgb 15.8 g/dL (12.0-16.0) 10/31/24 02:42
Hct 43.9 % (37.0-47.0) 10/31/24 02:42
MCV 97.8 fL (81.0-99.0) 10/31/24 02:42
Plt Count 170 10^3/uL (130-400) 10/31/24 02:42
Absolute Neuts (auto) 4.3 10^3/uL (1.4-6.5) 10/31/24 02:42
Sodium 143 mmol/L (135-145) 10/31/24 02:42
Potassium 4.2 mmol/L (3.5-5.1) 10/31/24 02:42
Chloride 96 mmol/L (98-107) L 10/31/24 02:42
Carbon Dioxide 14 mmol/L (22-30) L* 10/31/24 02:42
BUN 11 mg/dl (7-17) 10/31/24 02:42
Creatinine 0.7 mg/dL (0.6-1.0) 10/31/24 02:42
Calcium 10.6 mg/dl (8.4-10.2) H 10/31/24 02:42
Total Bilirubin 2.0 mg/dl (0.2-1.3) H 10/31/24 02:42
AST 226 U/L (14-36) H 10/31/24 02:42
ALT 106 U/L (0-35) H 10/31/24 02:42
Alkaline Phosphatase 96 U/L (38-126) 10/31/24 02:42
Lipase 97 U/L (23-300) 10/31/24 02:42
Diagnostic Image Results:
08/15/24 CT A/p IV only
No acute pathology of the abdomen or pelvis identified.
Severe hepatic fatty infiltration.
Mild hepatomegaly.
Prior GI Procedures:
EGD: [address]am with no active bleeding source, mild severe esophagitis without bleeding, congestion, nodularity and texture change in stomach and duodenitis bx with neg H pylori, some focal necrosis on esophageal bx neg fungal organism
seen
Colonoscopy: none
Assessment / Plan
-
Pt is a 39yo with hx anxiety/depression, HTN, asthma, PTSD, significant ETOH abuse disorder with multiple admission to ER and hospital for withdrawal. She has noted prior ETOH hepatitis, fatty liver, and prior hematemesis. In 2022 she
completed EGD with Dr. Higginbotham with no active bleeding source, mild severe esophagitis without bleeding, congestion, nodularity and texture change in stomach and duodenitis bx with neg H pylori, some focal necrosis on esophageal bx neg fungal organism
seen. She now presents with multiple complaints with headache, cough, congestion, fever along with nausea and vomiting. She also admitted to recent start of OCP 2 weeks prior. She is noted with concern for hematemesis and asked to eval . On
admission noted with Co2 14, glucose 141, calcium 10.6, bili 2, AST 226, ALT 106, alk phos 96, albumin >6, neg HCG with normal CBC with normal platelets and INR pending. Tox screen + benzos.
-hematemesis
-ETOH abuse with withdrawal
-LFT elevation with normal platelets
-ETOH ketoacidosis on admission
-hx prior severe esophagitis
other med problems:
-anxiety/depression
-HTN
-asthma
-PTSD
-hx hand skin graft
PLAN:
etiology of vomiting bile then blood related to MW tear, esophagitis, vs less likely EV bleeding with normal platelets, INR, and albumin
with significant acidosis and withdrawal hold on EGD for now with close watch
will change to Protonix gtt
NPO- 1 cup ice chips every 8 hours
trend hbg will check now last 15.8 0245 on admission
IVF with cont to correct acidosis
monitor for withdrawal
counseled on Quitting ETOH
trend INR and LFT's
updated nursing staff
-
-
Thank you for consultation and allowing me to participate in the patient's care. Please call the ammonia refrigeration worker GI physician during the after hours with any questions or concerns.
--- NOTE | 2024-10-31 11:45 | EDRN ---
Report given to BEATRIS Jacobs in ICU. Patient taken to room 3357 on stretcher on monitor with LR infusing.
[2024-10-31 11:46] LABS: INR 0.94
--- NOTE | 2024-10-31 12:07 | CON.INTV ---
Consultation
Consultation Request
Date/Time Consultation Requested: 10/31/2024 - 1138
Date/Time Consultation Performed: 10/31/2024 - 1204
Requesting Provider: Dr. Vanegas
Performing Provider: Dr. Estrada
Reason for Consultation: UGIB
Medical History
-
Chief Complaint: URI symptoms, vomiting blood
History of Present Illness:
39-year-old female with a past medical history of alcoholism, depression, anxiety, history of asthma, GERD and history of concussion who presents with vomiting blood. She is also been having mother signs/symptoms with a upper respiratory infection
including fevers, chills, headache, left earache, sinus congestion, nausea and vomiting since this past Monday. She was at the urgent care endorsed 10 on 10/05/2024 with right-sided upper tooth pain and diagnosed with a dental abscess � treated with
Augmentin X 7 days. She says that she finished these antibiotics, although the next day after starting antibiotics she developed nausea/vomiting and she thought she was having a allergic reaction. She is not sure exactly which ER she went to.
Currently, she has been having nausea/vomiting since yesterday morning and last night her vomitus turned into turned bloody with bloody streaks. He became more straight blood this morning and that is what brought her to the ER. She does drink
alcohol daily between 2 to a full bottle (750 mL bottle of vodka) daily. Her last drink was 1 day ago. In the ER she was afebrile to 98.4 �F, heart rate 120, respiratory rate 24, BP 182/112 and saturating 98% on room air. Initial Hb 15.8,
platelet count 170, INR 0.94, serum bicarbonate level 14, T. bili 2, beta-hCG negative, UDS positive for benzodiazepines and alcohol level 17. Her beta-hydroxybutyrate level was >6 and COVID-19 antigen was negative. In the ER she was given 1 L NS
0.1%, thiamine, Zofran, Ofirmev, Ativan, Reglan, folate and Benadryl. Given her hematemesis she was admitted to the ICU with Nurse Wound Care services consulted for additional management/recommendations.
When I saw the patient she was resting in bed in no acute distress. She was chewing on ice chips and says she felt better with less nausea. Currently denies abdominal pain. Heart rate 109, BP 124/90 and saturating 93% on room air. Currently
denies chest pain, BELTR[place]N, fevers or chills.
PMHx: Alcoholism, depression, thyroid disease, anxiety, asthma, seasonal allergies, GERD, history of concussion
PSHx: Right hand skin graft, wisdom teeth removal
Past Medical History
Past Medical History: Other (Above as per HPI)
Past Surgical History: Other (Above as per HPI)
Social History
Tobacco: Former Smoker
Alcohol: Chronic Alcoholic
Drug: None
Family History
Family History: Cancer (Maternal aunt: Breast cancer), Hypertension (Father) and Other (Mother: Hepatitis B + C, alcoholism, depression, anxiety, congenital heart disease; maternal grandfather: Stroke; Brother: Asthma; son: Asthma, ADHD, autistic)
Allergies / Home Medications
Allergies
Allergy/AdvReac Type Severity Reaction Status Date / Time
No Known Allergies Allergy Verified 10/31/24 02:04
Home Medications
�Medication �Instructions �Recorded �Confirmed �Last Taken �Type
levothyroxine 50 mcg tablet 50 mcg PO DAILY Thyroid 08/15/24 10/31/24 30 Days Ago History
(Synthroid) ~10/01/24
hydroxyzine HCl 50 mg tablet 50 mg PO Q6HPRN PRN anxiety 10/31/24 10/31/24 Unknown History
ondansetron 4 mg disintegrating 4 mg PO Q8H PRN nausea/vomiting 10/31/24 10/31/24 Unknown History
tablet
prazosin 1 mg capsule 1 mg PO HSPRN PRN nightmares 10/31/24 10/31/24 30 Days Ago History
~10/01/24
sertraline 50 mg tablet 50 mg PO DAILY Mental Health 10/31/24 10/31/24 30 Days Ago History
~10/01/24
tramadol 50 mg tablet 50 mg PO DAILYPRN PRN moderate pain 10/31/24 10/31/24 Unknown History
Review of Systems
-
History Source: Patient
All other systems: Negative unless noted
Vitals / Labs / Diagnostic Testing
Vital Signs
Temp Pulse Resp BP Pulse Ox
99.2 F 117 23 124/90 97
10/31/24 11:00 10/31/24 12:31 10/31/24 12:31 10/31/24 12:31 10/31/24 12:31
Lab Data
10/31/24 02:42
Laboratory Results
10/31/24
11:27
PT 13.0
INR 0.94
Microbiology
10/31/24 02:43 Nasal Swab Influenza Types A & B (TOMI) - Final
Negative for Influenza A & B, NAAT
Negative results must be combined with clinical observations
and patient history.
Nucleic Acid Amplification test (NAAT)performed on the
[employer] platform.
Diagnostic Testing:
Physical Exam
-
HEENT: Normocephalic and Anicteric
Cardiovascular: S1/S2 and Peripheral Edema (negative)
Respiratory: Wheeze (negative), Rales (negative), Rhonchi (negative) and Non-Labored Respirations
GI: Soft, Non Distended, Non Tender and Normal Bowel Sounds
Neurology: AO x 3 and Tremors (negative)
Skin: Warm and Dry
General: Respiratory Distress (negative), Comfortable, Fever (negative) and Chills (negative)
Assessment
-
Assessment: 39-year-old female with a past medical history of alcoholism, depression, anxiety, history of asthma, GERD and history of concussion who presents with vomiting blood. She is also been having mother signs/symptoms with a upper
respiratory infection including fevers, chills, headache, left earache, sinus congestion, nausea and vomiting since this past Monday. She was at the urgent care endorsed on 10/05/2024 with right-sided upper tooth pain and diagnosed with a dental
abscess � treated with Augmentin X 7 days. She says that she finished these antibiotics, although the next day after starting antibiotics she developed nausea/vomiting and she thought she was having a allergic reaction. She is not sure exactly
which ER she went to. Currently, she has been having nausea/vomiting since yesterday morning and last night her vomitus turned into turned bloody with bloody streaks. He became more straight blood this morning and that is what brought her to the
ER. She does drink alcohol daily between 08/08 to a full bottle (750 mL bottle of vodka) daily. Her last drink was 1 day ago. In the ER she was afebrile to 98.4 �F, heart rate 120, respiratory rate 24, BP 182/112 and saturating 98% on room air.
Initial Hb 15.8, platelet count 170, INR 0.94, serum bicarbonate level 14, T. bili 2, beta-hCG negative, UDS positive for benzodiazepines and alcohol level 17. Her beta-hydroxybutyrate level was >6 and COVID-19 antigen was negative. In the ER she
was given 1 L NS 0.1%, thiamine, Zofran, Ofirmev, Ativan, Reglan, folate and Benadryl. Given her hematemesis she was admitted to the ICU with Nurse Wound Care services consulted for additional management/recommendations.
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
Impression:
#Upper GI bleed: Differential includes Jamila-Bone tear versus severe esophagitis versus PUD versus AVM; less likely Dieulafoy lesion
#Alcoholic ketoacidosis
#Metabolic acidosis with increased anion gap due to alcoholic ketoacidosis
#Alcohol use disorder
#History of asthma
#GERD
#Depression/anxiety
#Hypothyroidism
Plan:
- Patient has been having nausea/vomiting over the last 24 hours and it seems that her vomitus became increasingly more bloody, and this raises concern for Jamila-Bone tear as the likely cause of her UGIB
- She is a chronic alcoholic drinking between a 0.5 -1 fifth of vodka a day
- She last had an endoscopy in July 2023 done due to hematemesis at the time, with no active source of bleeding seen, with mildly severe esophagitis, duodenitis and nodular second portion of her duodenum and a congested/granular and nodular
stomach mucosa. Pathology of her stomach did not show evidence of H. pylori. Random esophagus biopsy at the time showed fragments of squamous mucosa with acute inflammation, mild acanthosis and focal necrosis
- She was recently hospitalized here on 08/15 - 08/18/2024 due to alcohol withdrawal with mild hematemesis at that time suspected to be from Jamila-Bone tear
- She does understand that she needs to stop drinking or her severe fatty liver disease we will transition to cirrhosis
- Recommend [facility] to see the patient while she is hospitalized
- Continue with PPI drip as well as octreotide drip
- Continue Rocephin although given that she is not a cirrhotic with suspected Jamila-Bone tear, unclear if this is indicated; will defer to GI
- Currently on IVF with LR at 150 cc/h -continue this for now
- Large bore IV x 2
- Trend H/H and transfuse if needed to keep Hb>7g/dL; keep plt>50k; goal INR<1.8
- Hold all antiplatelets/anticoagulants for now
- NPO
- If H/H becomes unstable then would encourage GI to perform EGD to evaluate for treatable source of UGIB
- For alcoholic ketoacidosis, continue with LR and add dextrose
- Trend sCHO3 level, serum [K], [PO4] and glucose levels
- Maintain euglycemia with goal BG 140-180
- If blood glucose levels start to rise >180�200 then we will need to stop dextrose supplementation and add insulin, possibly via an insulin drip
- Maintain SpO2 >90-94%
- Continue aspiration precautions
- Maintain MAP>65
- Replete electrolytes with K>4, Mg>2
- prn nebulized bronchodilators - not currently bronchospastic
- Incentive spirometer encouraged 10x per hour for at least 4 hrs a day
- DVT ppx: SCDs for now
Continue ICU level care for this critically ill
Critical care statement: A total of 37 minutes of critical care time was provided for this patient today. This includes management of unstable vital signs, evaluation of the patient at bedside, reviewing the patient's pertinent medical records
including radiographs, microbiology, laboratory evaluations, and discussion with primary team, consultants, pharmacy, nutrition, physical therapy, case management, charge nurse, critical care nursing, and respiratory therapy.
--- NOTE | 2024-10-31 12:09 | PTCARENOTE ---
Rec'd patient from ED around 1130. Patient alert and oriented. No visible tremors. Calm and appropriate. ST on tele. Rate in the 110-120's. Lung sounds cta on RA. +BS. C/o nausea. GI at bedside. NPO for potential EGD. MSAS-5. Clarified with GI if
patient allowed to take PO medications. Per GI, hold off on Ativan for now. Patient scoring for HR and GI upset. While obtaining Zofran. Patient's HR observed to be in the 150's. Upon entering room, patient vomiting a large amount of dark red blood.
GI notified.
[2024-10-31 12:10] LABS: Glucose - Point of Care 172 mg/dl (70-99)
[2024-10-31] MEDS: PROTONIX 100 IV ×2 (12:56→21:23)
[2024-10-31] MEDS: SANDOSTATIN 500.6 MCG IV (13:21)
[2024-10-31] MEDS: ROCEPHIN 1000 MG IV (13:21)
[2024-10-31] MEDS: SANDOSTATIN 50 MCG IV (13:21)
[2024-10-31 13:25] LABS: Venous Blood Gas B.E. -6.4 mmol/L (-4 to +4); Venous Blood Gas HCO3 16.2 mmol/L (22-27); Venous Blood Gas O2 Sat % 99.3 %; Venous Blood Gas pCO2 25 mmHg (35-48); Venous Blood Gas pH 7.42 (7.32-7.43); Venous Blood Gas pO2 119 mmHg (30-50)
[2024-10-31 13:32] LABS: ALT (SGPT) 84 U/L (0-35); AST (SGOT) 111 U/L (14-36); Albumin 5.3 g/dl (3.5-5.0); Alkaline Phosphatase 66 U/L (38-126); Blood Urea Nitrogen 9 mg/dl (7-17); Calcium 10.1 mg/dl (8.4-10.2); Carbon Dioxide 15 mmol/L (22-30); Chloride 99 mmol/L (98-107); Estimated Creatinine Clearance 114 ml/min; Glucose 179 mg/dl (70-99); Potassium 4.6 mmol/L (3.5-5.1); Sodium 138 mmol/L (135-145); Total Bilirubin 1.8 mg/dl (0.2-1.3); eGFR > 60.00
[2024-10-31 13:38] LABS: Hematocrit 37.9 % (37.0-47.0); Hemoglobin 13.8 g/dL (12.0-16.0)
[2024-10-31 14:51] LABS: B-Hydroxybutyrate > 6.00 mmol/L (0.02-0.27)
[2024-10-31] MEDS: LR IV (15:41)
[2024-10-31] MEDS: D5/0.9% SODIUM CHLORIDE 1000 IV (15:58)
[2024-10-31] MEDS: MAGNESIUM SULFATE 50 IV (16:01)
[2024-10-31] MEDS: PHENOBARBITAL 97.5 MG IV ×2 (16:07→21:24)
--- NOTE | 2024-10-31 16:21 | PTCARENOTE ---
No major changes in assessment. Patient resting comfortably. MSAS 3-4. NSR-ST , rate improved to 90-100's. No n/v at current time. 2 episodes of bloody emesis since admission to ICU. Mag and Phos repletion. No other changes.
[2024-10-31] MEDS: SODIUM PHOSPHATE 255 MEQ IV (17:05)
--- NOTE | 2024-10-31 20:20 | PTCARENOTE ---
BC[facility] in to see pt prior to assessment. utilization review rn, SR-ST HR 90-low 100s. pt calm/cooperative, frequently requesting water and ice- multiple attempts made to educate pt on NPO order. RA IV x 2 WNL- IVF, Protonix, Octreotide infusing per work
list. RA Sat 97%. H&H to lab. bed alarm on, POC discussed, call gomez with pt.
[2024-10-31 21:06] LABS: Hematocrit 35.1 % (37.0-47.0); Hemoglobin 12.8 g/dL (12.0-16.0)
[2024-11-01] VITALS (21 sets, daily range): BP systolic 107–144; BP diastolic 19–115; BMI 26.2
--- NOTE | 2024-11-01 | PTCARENOTE ---
no changes in assessment, pt resting with eyes closed.
[2024-11-01] MEDS: D5/0.9% SODIUM CHLORIDE 1000 IV ×2 (00:24→08:39)
[2024-11-01] MEDS: THIAMINE INJECTION 200 MG IV ×3 (00:25→16:10)
[2024-11-01] MEDS: SANDOSTATIN 500.6 MCG IV (00:25)
[2024-11-01] MEDS: ZOFRAN 4 MG IV (04:12)
[2024-11-01 04:37] LABS: INR 0.97; PT 13.4 Sec (11.4-14.6)
[2024-11-01 04:53] LABS: Hematocrit 33.6 % (37.0-47.0); Hemoglobin 12.4 g/dL (12.0-16.0); Mean Corp Hgb Conc. 36.9 g/dL (33.0-37.0); Mean Corpuscular Hgb 36.2 pg (27.0-31.0); Red Blood Cell Count 3.43 10^6/uL (4.20-5.40); Red Cell Dist. Width 11.9 % (11.5-14.5); White Blood Cell Count 3.3 10^3/uL (4.8-10.8)
[2024-11-01 05:08] LABS: ALT (SGPT) 69 U/L (0-35); AST (SGOT) 84 U/L (14-36); Albumin 4.1 g/dl (3.5-5.0); Alkaline Phosphatase 67 U/L (38-126); Blood Urea Nitrogen 6 mg/dl (7-17); Calcium 9.2 mg/dl (8.4-10.2); Carbon Dioxide 24 mmol/L (22-30); Chloride 104 mmol/L (98-107); Direct Bilirubin 0.5 mg/dl (0.0-0.4); Estimated Creatinine Clearance 114 ml/min; Glucose 277 mg/dl (70-99); Phosphorus 1.7 mg/dl (2.5-4.5); Potassium 3.9 mmol/L (3.5-5.1); Sodium 136 mmol/L (135-145); Total Bilirubin 1.8 mg/dl (0.2-1.3); Total Protein 6.5 g/dl (6.3-8.2); eGFR > 60.00
--- NOTE | 2024-11-01 05:15 | W.PN.UPDATE ---
Update Note
Progress Note Update
No events overnight, no vomiting, patient feeling well. Hemoglobin remained stable, hemodynamically stable, acidosis and other labs much improved. Will plan EGD today to further evaluate for source of bleeding.
[2024-11-01 05:25] LABS: Mean Platelet Volume 10.3 fL (7.4-10.4); Platelet Count 98 10^3/uL (130-400)
[2024-11-01] MEDS: SYNTHROID PO (06:17)
[2024-11-01] MEDS: FOLVITE PO (07:28)
[2024-11-01] MEDS: PROTONIX 100 IV (07:35)
[2024-11-01] MEDS: ZOLOFT PO (07:36)
[2024-11-01] MEDS: PHENOBARBITAL 97.5 MG IV ×3 (07:36→21:32)
--- NOTE | 2024-11-01 07:50 | PTCARENOTE ---
pt aaox3. states no pain or nausea does have heartburn. pt npo for studies. pt states she is very thirsty/dehydrated and needs ice. explained she is on ivf and the reason for no oral intake. protonix nicole and ivf running as ordered. reviewed
plan of care with pt for u/s and poss egd today.
--- NOTE | 2024-11-01 08:16 | W.PN.INTV ---
Today's Communication / Plan
Recommendations
Discontinue IV fluids, octreotide, Rocephin
Switch PPI GGT to IV PPI twice daily
Full liquid diet post EGD
Replete Phos
Check A1c
ok to downgrade
Assessment
-
Assessment: 39-year-old female with a past medical history of alcoholism, depression, anxiety, history of asthma, GERD and history of concussion who presents with vomiting blood. She is also been having mother signs/symptoms with a upper
respiratory infection including fevers, chills, headache, left earache, sinus congestion, nausea and vomiting since this past Monday. She was at the urgent care endorsed on 10/05/2024 with right-sided upper tooth pain and diagnosed with a dental
abscess � treated with Augmentin X 7 days. She says that she finished these antibiotics, although the next day after starting antibiotics she developed nausea/vomiting and she thought she was having a allergic reaction. She is not sure exactly
which ER she went to. Currently, she has been having nausea/vomiting since yesterday morning and last night her vomitus turned into turned bloody with bloody streaks. He became more straight blood this morning and that is what brought her to the
ER. She does drink alcohol daily between 1/2 to a full bottle (750 mL bottle of vodka) daily. Her last drink was 1 day ago. In the ER she was afebrile to 98.4 �F, heart rate 120, respiratory rate 24, BP 182/112 and saturating 98% on room air.
Initial Hb 15.8, platelet count 170, INR 0.94, serum bicarbonate level 14, T. bili 2, beta-hCG negative, UDS positive for benzodiazepines and alcohol level 17. Her beta-hydroxybutyrate level was >6 and COVID-19 antigen was negative. In the ER she
was given 1 L NS 0.1%, thiamine, Zofran, Ofirmev, Ativan, Reglan, folate and Benadryl. Given her hematemesis she was admitted to the ICU with Course Instructor services consulted for additional management/recommendations.
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
Impression:
#Upper GI bleed: Differential includes Jamila-Bone tear versus severe esophagitis versus PUD versus AVM; less likely Dieulafoy lesion
#Alcoholic ketoacidosis
#Metabolic acidosis with increased anion gap due to alcoholic ketoacidosis
#Alcohol use disorder
#History of asthma
#GERD
#Depression/anxiety
#Hypothyroidism
#Hyperglycemia
Plan:
- Patient did not experience any additional nausea or vomiting since receiving IV PPI and octreotide in the hospital there is concern for Jamila-Bone tear as the likely cause of her UGIB as she had hematemesis before coming to the hospital. EGD
results below
- She is a chronic alcoholic drinking between a 0.5 -1 fifth of vodka a day
- She last had an endoscopy in July 2023 done due to hematemesis at the time, with no active source of bleeding seen, with mildly severe esophagitis, duodenitis and nodular second portion of her duodenum and a congested/granular and nodular
stomach mucosa. Pathology of her stomach did not show evidence of H. pylori. Random esophagus biopsy at the time showed fragments of squamous mucosa with acute inflammation, mild acanthosis and focal necrosis
- She was recently hospitalized here on 08/15 - 08/18/2024 due to alcohol withdrawal with mild hematemesis at that time suspected to be from Jamila-Bone tear
- She does understand that she needs to stop drinking or her severe fatty liver disease we will transition to cirrhosis
- Recommend [facility] to see the patient while she is hospitalized
switch PPI drip to iv bid
d/c octreotide drip
d/c Rocephin no variceal bleed
- d/c ivf
- Large bore IV x 2
- Trend H/H and transfuse if needed to keep Hb>7g/dL; keep plt>50k; goal INR<1.8
- Hold all antiplatelets/anticoagulants for now
full liquid per GI
Anion gap metabolic acidosis resolved
Maintain euglycemia with goal BG 140-180
check A1c
- Maintain SpO2 >90-94%
- Continue aspiration precautions
- Maintain MAP>65
- Replete electrolytes with K>4, Mg>2
- DVT ppx: SCDs for now
EGD:
Impression: - LA Grade C reflux esophagitis with no bleeding with
probably healing Jamila Bone tear - no signs of
recent or active bleeding.
- Small hiatal hernia.
- Normal examined duodenum.
- No specimens collected.
ok to downgrade
Subjective Dataa
Subjective Data
Date of Service:
Date of Service: November 01, 2024
Chief Complaint: Course Instructor Follow Up
Subjective:
Patient seen and evaluated in the a.m. sitting in the bed. Comfortable. Offers no new complaints. Vitals today blood pressure 132/107, pulse 88, RR 19, temp 99, O2 sat 97% on room air
Review of Systems
General: Fever (No)
Cardiopulmonary: Cough (No)
GI: Abdominal Pain (No), Nausea (No), Vomiting (No) and Melena (No)
Objective Data
Data Reviewed
Vital Signs / I&O / Oxygen:
Vital Signs
Temp Pulse Resp BP Pulse Ox
98.5 F 88 19 132/107 97
10/31/24 19:43 11/01/24 07:45 11/01/24 07:45 11/01/24 07:19 11/01/24 06:45
Intake and Output
10/31/24 11/01/24 11/02/24
06:59 06:59 06:59
Intake Total 3533.9 / 3710.6 353.4 / 353.4
Output Total 650 / 650
Balance 2883.9 / 3060.6 353.4 / 353.4
SaO2 97
Physical Exam
General: Comfortable
HEENT: Moist Mucous Membranes
Cardiovascular: S1-S2 and Regular Rhythm
Respiratory: Clear and Non-Labored Respirations
GI: Soft, Non Distended and Non Tender
Neurology: Awake, Alert and Oriented
Skin: Warm and Dry
Labs/Micro/Reports
Lab Data
11/01/24 04:12
11/01/24 04:12
Laboratory Results
10/31/24 11/01/24
04:12
PT 13.0 13.4
INR 0.94 0.97
Microbiology
10/31/24 02:43 Nasal Swab Influenza Types A & B (TOMI) - Final
Negative for Influenza A & B, NAAT
Negative results must be combined with clinical observations
and patient history.
Nucleic Acid Amplification test (NAAT)performed on the
[employer] platform.
--- NOTE | 2024-11-01 08:18 | W.PN.HOSP.TC ---
Addendum entered and electronically signed by Lynda Carmona MD 11/01/24 12:33:
I saw and evaluated the patient independently. I reviewed the resident�s note and agree with findings and plan as documented by Dr. Vanegas.
GENERAL: well developed, well nourished, female--much improved
HEENT: NC/AT
HEART: regular rate and rhythm, +S1, +S2--tachycardic
LUNGS : clear to auscultation bilaterally
ABDOM: soft, nontender, nondistended, + bowel sounds
EXT: no cyanosis, clubbing, or edema--left hand with splint on 4th and 5th fingers--4th finger appears bruised and swollen
NEUROLOGIC: tremulous less
Alcohol use disorder, alcohol withdrawal syndrome in setting of alcohol still in system (level = 17 on admission)--apprec intensivists/GI--advance diet/ stop IVF/Protonix drip/octreotide --Urine drug screen only positive for benzos, was initiated on
those in the ED due to alcohol withdrawal--TSH within normal limits--follow K and mag--MSAS protocol--phenobarbital taper--thiamine/folate repletion--ok for transfer to med surg
hematemesis--healing Jamila Bone tear on EGD--no varices--stop protonix drip/octreotide--apprec GI consult--advance diet
metabolic acidosis--AGAP 33 on admission--resolved--likely due to alcoholic/starvation ketosis--beta hydroxybutyrate elevated
URI symptoms for 4 days--COVID/Flu negative--CXR ordered--follow for any worsening symptoms
Elevated LFTs--likely ETOH induced--AST/ALT elevated--continue to trend, most likely secondary to alcohol use--U/S abd ordered
Recent abnormal periods with increased bleeding--Will continue monitoring Hgb levels--Will need follow up with BATTER MIXER
Anxiety and Depression--Resume home meds as possible due to inability to keep food down
Hypothyroidism--TSH within normal limits--Continue with Levothyroxine as possible
DVT Proph--SCDs
Code Status-- Full code
transfer to med/surg
Original Note:
Today's Communication/Plan
-
Continue supportive therapy, patient to undergo EGD today. Most likely will be able to downgrade patient from ICU level today as per EGD findings
Assessment / Plan
Assessment / Plan
Assessment:
39-year-old female with past medical history significant for alcohol use disorder, anxiety/depression, hypothyroidism came to the [facility] ED on 10/31/2024 due to recent increased respiratory symptoms including cough, sinus pain and
headache that started around 4 days ago along with increased nausea and vomiting. She has not been having anything by mouth and has not had any food since Monday. Patient says that her last drink was yesterday morning and has not had any alcohol
since then as she is extremely nauseous. She also complains of diffuse abdominal pain and recent abnormal periods with increased bleeding that started last week on Monday. In the ED, patient was found to be tachycardic, tremulous and started on
alcohol withdrawal therapy. While awaiting transport to IMU for further management, patient developed hematemesis. Patient was transferred to ICU level treatment and steel post installer and GI were consulted for further management. Patient continued to
do well since last night. Continues to have some heartburn but her nausea and vomiting have resolved. Patient to undergo EGD today to find source of bleed.
Plan:
# Alcohol use disorder, alcohol withdrawal syndrome
-Patient's last drink was on the morning of 10/30/2024, had alcohol in system yesterday (17)
-Patient's symptoms have resolved, MSAS score 1
-No longer hypertensive, tachycardic, acidotic
-Continue supportive care with IV fluids, antiemetics
-Urine drug screen only positive for benzos, was initiated on those in the ED due to alcohol withdrawal
-TSH within normal limits
-Advance diet after EGD as tolerated
-Nurse Researcher was consulted yesterday, input appreciated
-Patient stable, most likely will be able to downgrade from ICU today as per EGD findings
-Thiamine, folate repletion
-Continue MSAS protocol
-Phenobarbital taper
-Follow potassium and mag
# Metabolic acidosis on presentation due to Alcoholic Ketoacidosis
-Anion gap of 33, with elevated beta hydroxybutyrate's and ketones seen on urine
-VBG ordered by steel post installer showed decreased bicarbonate, decreased pCO2
-Acidosis has resolved
-Continue monitoring electrolytes
# Heartburn due to possible GERD
-GI consulted, input appreciated
-EGD later today, continue to be n.p.o. until then
-Continue Protonix drip
#URI symptoms for 4 days
-COVID/Flu negative
-CXR ordered
-follow for any worsening symptoms
-No recent complaints of cough, shortness of breath, fever or chills
#Hematemesis
-GI consulted, input appreciated
-History of possible Jamila-Bone tear as per previous admission for similar reason in August 2024
-EGD scheduled today, n.p.o. until then
-Hemoglobin within normal limits
#Elevated LFTs
-AST/ALT elevated
-continue to trend, most likely secondary to alcohol use
-Trending downwards
-U/S abd ordered
#Recent abnormal periods with increased bleeding
-Will continue monitoring Hgb levels
-Will need follow up management with [employer] M[employer]
-May need further workup if symptoms continue
#Anxiety and Depression
-Resume home meds as possible
#Hypothyroidism
-TSH within normal limits
-Continue with Levothyroxine as possible
DVT Prophylaxis: SCDs
Code Status: Full
Anticipated Discharge: Within 24 hours
Subjective/Interval History
-
Date of Service: November 01, 2024
Patient has been feeling well, has been much less nauseous and then her abdominal pain has completely resolved. Did complain of having a dry mouth that she is n.p.o. for EGD today. Overall much improvement in patient's condition and no adverse
events overnight.
Objective Data
-
Labs:
Laboratory Results
10/31/24 11/01/24 11/01/24
20:30 04:12 04:12
WBC 3.3 L
Hgb 12.8 12.4 Cancelled
Hct 35.1 L 33.6 L
Plt Count
PT
INR
Sodium
Potassium
Chloride
Carbon Dioxide
BUN
Creatinine
Glucose
Calcium
Total Bilirubin
AST
ALT
Alkaline Phosphatase
11/01/24
04:12
WBC
Hgb
Hct Cancelled
Plt Count 98 L D
PT 13.4
INR 0.97
Sodium 136
Potassium 3.9
Chloride 104
Carbon Dioxide 24
BUN 6 L
Creatinine 0.5 L
Glucose 277 H
Calcium 9.2
Total Bilirubin 1.8 H
AST 84 H
ALT 69 H
Alkaline Phosphatase 67
Vital Signs:
Vital Signs
Temp Pulse Resp BP Pulse Ox
98.5 F 88 19 132/107 97
10/31/24 19:43 11/01/24 07:45 11/01/24 07:45 11/01/24 07:19 11/01/24 06:45
I&O
10/31/24 11/01/24 11/02/24
06:59 06:59 06:59
Intake Total 3533.9 / 3710.6 353.4 / 353.4
Output Total 650 / 650
Balance 2883.9 / 3060.6 353.4 / 353.4
Review of Systems
-
History Source: Patient
Constitutional: Denies Fever or Chills
EENT: Reports Other (Dry mouth)
Cardiac: Denies Chest Pain, Palpitations or Syncope
Abdomen/GI: Reports GERD; Denies Abdominal Pain, Nausea, Vomiting or Hematemesis
Musculoskeletal: Reports No Symptoms
Skin: Reports No Symptoms
Neuro: Denies Dizzy, Headache or Weakness
Physical Exam
-
General: Well Developed, Well Nourished, No Apparent Distress, Comfortable and Conversant
HEENT: Normocephalic and Atraumatic
Respiratory: Clear to Auscultation and Non Labored Respirations
Cardiac: Regular Rhythm and S1/S2
GI: Soft, Nontender and Nondistended
Musculoskeletal: No Clubbing, No Cyanosis and No Edema
Skin: Warm
Neuro: Awake, Alert and Oriented
Psych: Calm
Data Reviewed
-
Labs: Labs Reviewed by me, Discussed with Physician, Discussed with Nurse and Discussed with Patient
[2024-11-01] MEDS: FOLVITE 50.2 MG IV (08:39)
--- NOTE | 2024-11-01 09:48 | PTCARENOTE ---
pt brought to gi lab
--- NOTE | 2024-11-01 11:07 | PTCARENOTE ---
pt taken from gi lab to U/S now back in room. ivf protonix and Sandostatin now off as ordered. pt ambulating in room no complaints.
--- NOTE | 2024-11-01 12:04 | CM ---
CM following re: discharge planning.
Reviewed pt's chart, met with pt.
Pt is a 39 year old female, admitted with primary dx of Alcohol use disorder, alcohol withdrawal syndrome.
Pt reports she lives alone in an apartment, has 3 children and they live with their father. Pt reports she stopped working 4-5 weeks ago and she lost her insurance. Pt admitted to significant h/o alcohol abuse, drink of choice vodka, 1/5 to bottle
per day. Pt reports she went to inpatient residential D&A rehab [facility] in [place] and she spent there 3 months. Pt reports she has not been staying sober since she came home, was in and out of different hospital for detox. Pt expressed her desire to
go to inpatient D&A rehab, expressed her wishes to meet with [facility] team. Pt stated she will not be able to go to inpatient D&A rehab right away and she requested to get home at discharge with a plan to report to inpatient D&A rehab as early as next
.
A referral to [facility] made yesterday, [facility] Abdi will meet with the pt today. [facility] Leyda spoke to the pt yesterday and pt expressed her agreement to go to inpatient detox rehab only.
PCP: pt stated she does not have PCP
Pharmacy: [facility].
D/C plan:inpatient residential D&A rehab or inpatient detox per pt's request.
CM will follow with discharge plan updates as hospitalization progresses
[2024-11-01 13:46] LABS: Glucose - Point of Care 216 mg/dl (70-99)
[2024-11-01] MEDS: NEUTRA-PHOS POWDER PACKET 500 MG PO (15:15)
[2024-11-01] MEDS: NSS (PRESERVATIVE FREE) 10 ML IV (20:15)
[2024-11-01] MEDS: PROTONIX IV 40 MG IV (20:15)
[2024-11-01] MEDS: ATIVAN 1 MG PO (20:26)
[2024-11-02] MEDS: THIAMINE INJECTION 200 MG IV ×2 (01:02→08:34)
[2024-11-02] MEDS: SYNTHROID 50 MCG PO (05:58)
[2024-11-02 07:11] LABS: ALT (SGPT) 75 U/L (0-35); AST (SGOT) 112 U/L (14-36); Albumin 4.4 g/dl (3.5-5.0); Alkaline Phosphatase 65 U/L (38-126); Blood Urea Nitrogen 4 mg/dl (7-17); Calcium 9.9 mg/dl (8.4-10.2); Carbon Dioxide 24 mmol/L (22-30); Chloride 102 mmol/L (98-107); Estimated Creatinine Clearance 114 ml/min; Glucose 102 mg/dl (70-99); Phosphorus 3.2 mg/dl (2.5-4.5); Potassium 3.6 mmol/L (3.5-5.1); Sodium 136 mmol/L (135-145); Total Bilirubin 1.6 mg/dl (0.2-1.3); Total Protein 6.6 g/dl (6.3-8.2); eGFR > 60.00
[2024-11-02 07:20] VITALS: BP 122/87
[2024-11-02 08:10] LABS: % Basophils 0.6 % (0-2); % Eosinophils 3.5 % (0-6); % Immature Granulocytes 0.3 % (0-0.5); % Lymphocytes 28.3 % (20.5-51.1); % Monocytes 7.9 % (1.7-9.3); % Neutrophils 59.4 % (42.2-75.2); Absolute Eosinophils 0.1 10^3/uL (0-0.7); Absolute Lymphocytes 0.9 10^3/uL (1.2-3.4); Absolute Monocytes 0.3 10^3/uL (0.1-0.6); Absolute Neutrophils 1.9 10^3/uL (1.4-6.5); Hematocrit 34.9 % (37.0-47.0); Hemoglobin 13.1 g/dL (12.0-16.0); Mean Corp Hgb Conc. 37.5 g/dL (33.0-37.0); Mean Corpuscular Hgb 35.9 pg (27.0-31.0); Mean Corpuscular Volume 95.6 fL (81.0-99.0); Mean Platelet Volume 10.5 fL (7.4-10.4); Nucleated Red Blood Cells % 0 %; Platelet Count 107 10^3/uL (130-400); Red Blood Cell Count 3.65 10^6/uL (4.20-5.40); Red Cell Dist. Width 11.7 % (11.5-14.5); White Blood Cell Count 3.2 10^3/uL (4.8-10.8)
--- NOTE | 2024-11-02 08:22 | W.PN.HOSP.TC ---
Addendum entered and electronically signed by Lynda Carmona MD 11/02/24 13:19:
I saw and evaluated the patient independently. I reviewed the resident�s note and agree with findings and plan as documented by Dr. Vanegas.
GENERAL: well developed, well nourished, female--much improved
HEENT: NC/AT
HEART: regular rate and rhythm, +S1, +S2--tachycardic
LUNGS : clear to auscultation bilaterally
ABDOM: soft, nontender, nondistended, + bowel sounds
EXT: no cyanosis, clubbing, or edema--left hand with splint on 4th and 5th fingers--4th finger appears bruised and swollen
NEUROLOGIC: tremulous less
Alcohol use disorder, alcohol withdrawal syndrome in setting of alcohol still in system (level = 17 on admission)--apprec intensivists/GI--advance diet/ stop IVF/Protonix drip/octreotide --Urine drug screen only positive for benzos, was initiated on
those in the ED due to alcohol withdrawal--TSH within normal limits--follow K and mag--MSAS protocol--phenobarbital taper--thiamine/folate repletion--ok for d/c--withdrawal symptoms have resolved
hematemesis--healing Jamila Bone tear on EGD--no varices--stop protonix drip/octreotide--apprec GI consult--tolerating advanced diet
metabolic acidosis--AGAP 33 on admission--resolved--likely due to alcoholic/starvation ketosis--beta hydroxybutyrate elevated
URI symptoms for 4 days--COVID/Flu negative--CXR ordered--follow for any worsening symptoms
Elevated LFTs--likely ETOH induced--AST/ALT elevated--continue to trend, most likely secondary to alcohol use--U/S abd ordered
Recent abnormal periods with increased bleeding--Will continue monitoring Hgb levels--Will need follow up with PREMISES TECHNICIAN
Anxiety and Depression--Resume home meds as possible due to inability to keep food down
Hypothyroidism--TSH within normal limits--Continue with Levothyroxine as possible
DVT Proph--SCDs
Code Status-- Full code
OK for d/c
Original Note:
Today's Communication/Plan
-
Patient to be discharged home today as she is feeling much better.
Assessment / Plan
Assessment / Plan
Assessment:
39-year-old female with past medical history significant for alcohol use disorder, anxiety/depression, hypothyroidism came to the [facility] ED on 10/31/2024 due to recent increased respiratory symptoms including cough, sinus pain and
headache that started around 4 days ago along with increased nausea and vomiting. She has not been having anything by mouth and has not had any food since Monday. Patient says that her last drink was yesterday morning and has not had any alcohol
since then as she is extremely nauseous. She also complains of diffuse abdominal pain and recent abnormal periods with increased bleeding that started last week on Monday. In the ED, patient was found to be tachycardic, tremulous and started on
alcohol withdrawal therapy. While awaiting transport to IMU for further management, patient developed hematemesis. Patient was transferred to ICU level treatment and director equipment and GI were consulted for further management. Patient continued to
do well since last night. Continues to have some heartburn but her nausea and vomiting have resolved. Patient underwent EGD which only showed some healing Jamila-Bone tears, and gastritis. Patient has been feeling well and will most likely be
cleared for discharge today.
US Abdomen Complete/Upper (11/01/2024):
Fatty liver, which is mildly enlarged
Abdomen otherwise normal in appearance
CR Chest - 2 Views (11/01/2024):
Normal radiographic appearance to the chest
Plan:
# Alcohol use disorder, alcohol withdrawal syndrome
-Patient's last drink was on the morning of 10/30/2024, had alcohol in system yesterday (17)
-Patient's symptoms have resolved, MSAS score 1
-No longer hypertensive, tachycardic, acidotic
-Patient was downgraded from ICU to MedSurg yesterday as he was feeling much better
-Urine drug screen only positive for benzos, was initiated on those in the ED due to alcohol withdrawal
-TSH within normal limits
-Advance diet after EGD as tolerated
-Thiamine, folate repletion
-Continue MSAS protocol
-Phenobarbital taper
-Follow potassium and mag
# Hypophosphatemia
-Phosphorus was found to be low, was repleted
-Now 3.2 from 1.7
-Continue monitoring and replete as needed
# Metabolic acidosis on presentation due to Alcoholic Ketoacidosis
-Anion gap of 33, with elevated beta hydroxybutyrate's and ketones seen on urine
-VBG ordered by director equipment showed decreased bicarbonate, decreased pCO2
-Acidosis has resolved
-Continue monitoring electrolytes
# Heartburn due to possible GERD
-GI consulted, input appreciated
-EGD showed gastritis and healing Jamila-Bone tears
-Continue Protonix drip, switch to p.o. before discharge
#URI symptoms for 4 days
-COVID/Flu negative
-CXR as above, no acute process
-follow for any worsening symptoms
-No recent complaints of cough, shortness of breath, fever or chills
#Hematemesis
-GI consulted, input appreciated
-History of possible Jamila-Bone tear as per previous admission for similar reason in August 2024
-EGD showed well-healing Jamila-Bone tears, most likely due to recent vomiting
-Hemoglobin within normal limits
#Elevated LFTs
-AST/ALT elevated
-continue to trend, most likely secondary to alcohol use
-Trending downwards
-U/S abd as above, showed fatty liver and mildly enlarged liver
-Repeat CMP in 1 week after discharge and follow-up with PCP for further management
#Recent abnormal periods with increased bleeding
-Will continue monitoring Hgb levels
-Will need follow up management with PREMISES TECHNICIAN
-May need further workup if symptoms continue
#Anxiety and Depression
-Resumed home meds of sertraline
#Hypothyroidism
-TSH within normal limits
-Continue with Levothyroxine
DVT Prophylaxis: SCDs
Code Status: Full
Anticipated Discharge: Today
Subjective/Interval History
-
Date of Service: November 02, 2024
Patient has been feeling well and looking forward to going home today. Wanted to get some solid foods this morning. Reports no nausea, vomiting, abdominal pain.
Objective Data
-
Labs:
Laboratory Results
11/02/24
06:00
WBC 3.2 L
Hgb 13.1
Hct 34.9 L
Plt Count 107 L
Sodium 136
Potassium 3.6
Chloride 102
Carbon Dioxide 24
BUN 4 L
Creatinine 0.5 L
Glucose 102 H
Calcium 9.9
Total Bilirubin 1.6 H
AST 112 H
ALT 75 H
Alkaline Phosphatase 65
Vital Signs:
Vital Signs
Temp Pulse Resp BP Pulse Ox
98.1 F 93 16 122/87 97
11/02/24 07:20 11/02/24 07:20 11/02/24 07:20 11/02/24 07:20 11/02/24 07:20
I&O
11/01/24 11/02/24 11/03/24
06:59 06:59 06:59
Intake Total 3533.9 / 3710.6 1170.1 / 1170.1
Output Total 650 / 650
Balance 2883.9 / 3060.6 1170.1 / 1170.1
Review of Systems
-
History Source: Patient
Constitutional: Denies Fever or Chills
EENT: Reports No Symptoms Reported
Cardiac: Denies Chest Pain, Palpitations or Syncope
Abdomen/GI: Denies Abdominal Pain, Nausea, Vomiting or Hematemesis
Musculoskeletal: Reports No Symptoms
Skin: Reports No Symptoms
Neuro: Reports Tremors (Mild which are resolving); Denies Dizzy, Headache or Weakness
Physical Exam
-
General: Well Developed, Well Nourished, No Apparent Distress, Comfortable and Conversant
HEENT: Normocephalic and Atraumatic
Respiratory: Clear to Auscultation and Non Labored Respirations
Cardiac: Regular Rhythm and S1/S2
GI: Soft, Nontender and Nondistended
Musculoskeletal: No Clubbing, No Cyanosis and No Edema
Skin: Warm
Neuro: Awake, Alert and Oriented; Negative Tremors (None noted)
Psych: Calm
Data Reviewed
-
Labs: Labs Reviewed by me, Discussed with Physician, Discussed with Nurse and Discussed with Patient
[2024-11-02] MEDS: PROTONIX IV 40 MG IV (08:33)
[2024-11-02] MEDS: ZOLOFT 50 MG PO (08:33)
[2024-11-02] MEDS: FOLVITE 1 MG PO (08:33)
[2024-11-02] MEDS: NSS (PRESERVATIVE FREE) 10 ML IV (08:34)
[2024-11-02] MEDS: PHENOBARBITAL 97.5 MG IV (08:34)
--- NOTE | 2024-11-02 09:12 | W.PN.GI.CBS2 ---
Today's Communication / Plan
-
Please see assessment and plan for details.
Assessment / Plan
-
1. Hematemesis: with healing Jamila-Bone tear and coffee-ground emesis, hemoglobin remains normal, tolerating liquids without difficulty. At this point will advance diet, and discussed continued alcohol abstinence. Will continue PPI twice
daily for 2 weeks then daily for 2 weeks.
2. Elevated LFTs: In a mild necroinflammatory pattern consistent with acute alcohol hepatitis, mild. Again discussed alcohol abstinence.
She is okay to DC from GI standpoint. Will sign off for now, please go back with any further questions.
Subjective
Subjective
Date of Service: November 02, 2024
Patient feeling well, tolerating liquids without difficulty, no vomiting, abdominal pain, fever or chills.
Objective
Data Reviewed
Laboratory Data:
Laboratory Results
11/02/24 06:00
11/02/24 06:00
Laboratory Results
PT 13.4 Sec (11.4-14.6) 11/01/24 04:12
INR 0.97 11/01/24 04:12
Phosphorus 3.2 mg/dl (2.5-4.5) 11/02/24 06:00
Magnesium 2.0 mg/dl (1.6-2.3) 11/01/24 04:12
Total Bilirubin 1.6 mg/dl (0.2-1.3) H 11/02/24 06:00
AST 112 U/L (14-36) H 11/02/24 06:00
ALT 75 U/L (0-35) H 11/02/24 06:00
Alkaline Phosphatase 65 U/L (38-126) 11/02/24 06:00
Lipase 97 U/L (23-300) 10/31/24 02:42
Vital Signs and I&O:
Vital Signs
Temp Pulse Resp BP Pulse Ox
98.1 F 93 16 122/87 97
03/29/25 07:20 11/02/24 07:20 11/02/24 07:20 11/02/24 07:20 11/02/24 07:20
I&O
11/01/24 11/02/24 11/03/24
06:59 06:59 06:59
Intake Total 3533.9 / 3710.6 1170.1 / 1170.1
Output Total 650 / 650
Balance 2883.9 / 3060.6 1170.1 / 1170.1
Physical Exam
Physical Exam
General: NAD
Abdomen: normal bowel sounds, soft, no tenderness, no masses or bruits, no ascites
[2024-11-02 09:48] LABS: Glycohemoglobin (HgbA1c) 4.7 % (4.0-5.6)
--- NOTE | 2024-11-02 13:58 | CM ---
Chart reviewed. Patient for d/c today, d/c order placed.
CM spoke w/ patient regarding plan as prev CM note indicated IP rehab w/ assistance from [facility]. Per patient, she is now deciding to go home as she has things to figure out w/ her insurance and some other personal things. CM informed patient that
[facility] can get funding through the [facility] to cover rehab if that is the concern. Patient stated her insurance is a concern along w/ other things and not wanting to go to rehab at this time.
Plan: Home; no needs
--- NOTE | 2024-11-02 14:24 | W.DCSUMMARY ---
Addendum entered and electronically signed by Lynda Carmona MD 11/02/24 14:47:
Read, reviewed, and agree. See same day progress note for additional details. Time spent coordinating care, DC planning, review of DC plan of care with resident, transition of care, review of records in EMR, med rec, consults, notes, d/w
consultants, nursing, family, and CM = 31 minutes
Original Note:
Discharge Summary
Discharge Data
Date of Admission: 10/31/24
Date of Discharge: 11/02/24
-
Pending Results: No
Hospital Course
Discharging Physician : Dr. Doreen Vanegas, Dr. Lynda Carmona
�
Disposition�:�Home
�
Primary�care�physician�: None
�
Principal�Discharge�Diagnosis�:�
Alcohol use disorder, metabolic acidosis due to alcoholic/starvation ketosis
Elevated LFTs
Hematemesis
Chronic�Discharge�Diagnosis:�
Anxiety depression
Hypothyroidism
Hospital�Course�:��
39-year-old female with past medical history significant for alcohol use disorder, anxiety/depression, hypothyroidism came to the [facility] ED on 10/31/2024 due to recent increased respiratory symptoms including cough, sinus pain and
headache that started around 4 days earlier along with increased nausea and vomiting. She had not been having anything by mouth and had not had any food since Monday. Patient said that her last drink was the morning before and had not had any
alcohol since then due to her nausea. She also complains of diffuse abdominal pain and recent abnormal periods with increased bleeding that started last week on Monday. In the ED, patient was found to be tachycardic, tremulous and started on
alcohol withdrawal therapy. While awaiting transport to IMU for further management, patient developed hematemesis. Patient was transferred to ICU level treatment and manager insurance and GI were consulted for further management. Patient continued to
do well with therapy for her alcohol withdrawal with phenobarbital taper and benzodiazepines and most of her symptoms resolved. Patient underwent EGD for her hematemesis which only showed some healing Jamila-Bone tears, and gastritis. Patient
continued to tolerate fluids so her diet was advanced as tolerated. As per GI, patient was started on Protonix 40mg PO before discharge and is to take the medication twice a day for 2 weeks, then daily after for 2 more weeks. Patient was also found
to have elevated LFTs during her stay which she should follow up with her PCP. For her recent abnormal periods, patient should follow up with an BATTERY FILLER for further management. Patient was also counseled heavily about her alcohol abuse and steps she
can take to help with her alcohol abuse history. Patient says that she will look into going to AA meetings again as her insurance allows.
Important�imaging�findings�:��
US Abdomen Complete/Upper (11/01/2024):
Fatty liver, which is mildly enlarged
Abdomen otherwise normal in appearance
CR Chest - 2 Views (11/01/2024):
Normal radiographic appearance to the chest
Procedure�findings�:
Endoscopy (11/01/2024):
- LA Grade C reflux esophagitis with no bleeding with probably healing Jamila Bone tear
- no signs of recent or active bleeding.
- Small hiatal hernia.
- Normal examined duodenum.
- No specimens collected.��
�
Discharge Plan
-
Patient Disposition: Home (Routine Discharge)
Discharge Diagnosis/Procedures: Alcohol use disorder, alcohol withdrawal syndrome
Metabolic acidosis secondary to Alcohol induced Ketoacidosis/Starvation Ketoacidosis
Anxiety/Depression
Hypothyroidism
Hematemesis
URI symptoms 4 days
Condition: Fair
Diet: As tolerated and Regular
Activity: No restrictions
Driving Restrictions: As prior to admission
Bathing Restrictions: None
Blood Work: CMP in one week due to elevated liver enzymes
Specialty Instructions: Weigh Daily- Call MD for wt gain/loss 3 lbs overnight/5 lbs in 1 week
Referrals:
UNKNOWN - PT DOES,NOT KNOW [Family Provider] - in less than 1 week
Additional Discharge Medication Instructions: Follow-up with PCP regarding elevated liver enzymes within one week, get CMP in 1 week for elevated liver enzymes
Follow-up with rehab program for alcohol use
Follow up with BATTERY FILLER regarding abnormal menstruation
Continue with Pantoprazole 40mg One Tablet Twice a day for 14 days, then 1 tablet Once a day for 14 days
Prescriptions:
New
pantoprazole [Protonix] 40 mg tablet,delayed release (DR/EC)
40 mg PO BID 28 Days Qty: 42 0RF
Rx Instructions:
Twice Daily for 2 weeks, then Daily for 2 weeks
Continued
levothyroxine [Synthroid] 50 mcg Tablet
50 mcg PO DAILY
sertraline 50 mg Tablet
50 mg PO DAILY
hydroxyzine HCl 50 mg Tablet
50 mg PO Q6HPRN PRN (Reason: anxiety)
tramadol 50 mg Tablet
50 mg PO DAILYPRN PRN (Reason: moderate pain)
ondansetron 4 mg Tablet,Disintegrating
4 mg PO Q8H PRN (Reason: nausea/vomiting)
prazosin 1 mg Capsule
1 mg PO HSPRN PRN (Reason: nightmares)
Discharge Orders:
Discharge Patient (As Directed); Ordered 11/02/24
Ordered By: Doreen Vanegas
Discharge Date and Time
Print Language: [place]
== END 2024-11-02 15:10 | disposition home or self-care (01) | DRG 896 ==
LOC: 4 EAST ACU 04:54
PROVIDERS: Internal Medicine Gastroenterology; Nurse Practitioner Adult Health; ADMITTING PHYSICIAN Hospitalist; ATTENDING PHYSICIAN Internal Medicine; CONSULT PHYSICIAN Internal Medicine Critical Care Medicine; CONSULT PHYSICIAN Internal Medicine Gastroenterology; EMERGENCY PHYSICIAN Emergency Medicine
PROC: 0DJ08ZZ Inspection of Upper Intestinal Tract, Via Natural or Artificial Opening Endoscopic (ICD-10-PCS; 2024-11-01)
DX: F10.239 Alcohol dependence with withdrawal, unspecified (principal); K21.01 Gastro-esophageal reflux disease with esophagitis, with bleeding; K22.6 Gastro-esophageal laceration-hemorrhage syndrome; E87.29 Other acidosis; F32.A Depression, unspecified; F41.9 Anxiety disorder, unspecified; E03.9 Hypothyroidism, unspecified; Y90.0 Blood alcohol level of less than 20 mg/100 ml; Z11.52 Encounter for screening for COVID-19; K44.9 Diaphragmatic hernia without obstruction or gangrene; J45.909 Unspecified asthma, uncomplicated; I10 Essential (primary) hypertension; F90.9 Attention-deficit hyperactivity disorder, unspecified type; F43.10 Post-traumatic stress disorder, unspecified; Z87.891 Personal history of nicotine dependence; Z91.148 Patient's other noncompliance with medication regimen for other reason; Z87.820 Personal history of traumatic brain injury; Z79.890 Hormone replacement therapy
CPT/HCPCS: 71046; 76700; 80053; 80306; 80307; 81003; 81015; 82010; 82077; 82248; 82805; 82962; 83036; 83690; 83735; 84100; 84443; 84703; 85014; 85018; 85025; 85027; 85610; 87502; 87811; 93005; 96365; 96375; 97116; 97162; 99285; 99406

== ENCOUNTER 2024-11-08 19:12 | Emergency (ER) | payer SELFPAY ==
[2024-11-08 19:16] VITALS: BP 134/95
[2024-11-08 22:18] VITALS: BP 112/80; BMI 26.5
--- NOTE | 2024-11-08 22:29 | ED.GENMED ---
History of Present Illness
General
Chief Complaint: Fall
Source: patient
Time Seen by Provider: 11/08/24 22:20
History of Present Illness
History of Present Illness:
39-year-old female with past medical history of asthma, hypertension and anxiety/depression/PTSD/alcohol abuse presenting to the ER after her roommate/friend brought her here for further evaluation of a head injury sustained around 5 AM this morning
when patient was standing by her dresser and fell face forward onto the ground striking her forehead and lip onto the ground and sustaining a laceration to the inner lower portion of her lip patient does admit to drinking alcohol last night and this
morning as well as again this evening noting that this has been an ongoing issue for her, had attempted to get sober but started binge drinking again this past Monday. Patient is declining any other symptoms at this time and when offered BCARES
states she does not want any help for her alcohol use at this time.
Past History
Past History
ED Past Medical History: Asthma, HTN, Hypothyroidism and Psychiatric (Anxiety, depression, alcohol abuse, PTSD< ADHD)
ED Past Surgical History: None
Social History
Tobacco: Vaping (Former Cig smoker)
Alcohol: Chronic alcoholic (Daily bottle of Vodka)
Drug: None
Personal:
Living: with roommate
Employment: Employed
Review of Systems
Review of Systems
All Other Systems: ROS reviewed and negative except as documented in HPI and ROS
Phy Exam
Physical Exam
Physical Exam:
GENERAL: Alert , in no apparent distress
HEAD: NCAT
EYE: conjunctiva clear
NECK: Supple
ENT: o/p clr, mmm. laceration to lower lip < 8mm. granulation tissue surrounding the edges. no bleeding
CARDIAC: Regular rate and rhythm
LUNGS: Clear breath sounds bilaterally, no acute respiratory distress, no wheezes/rales/rhonchi
NEUROLOGICAL: Alert and oriented
SKIN: Warm and dry, skin intact.
MUSCULOSKELETAL: well perfused.
PSYCH: Normal and appropriate interaction.
Scores
Heart Failure Risk
Heart Failure Risk Score: Not Applicable
Heart Score for Chest Pain Patients
STEMI patient?: Not applicable
Withdrawal Assessment of Alcohol
Withdrawal Assessment Completed?: Not applicable
Course
Orders/Labs/Results
Orders:
Orders
11/08/24 19:27
EKG [Electrocardiogram (*1)] Urgent
Reason for Study: Vertigo / Dizzy
11/08/24 19:28
CT Head W/o Iv Contrast Urgent
Comment:
Reason For Exam: fall
Vital Signs
Initial and Last Documented VS:
Initial Vital Signs
Temp Pulse Resp BP Pulse Ox
98.2 F 96 15 134/95 97
11/08/24 19:16 11/08/24 19:16 11/08/24 19:16 11/08/24 19:16 11/08/24 19:16
Last Documented Vital Signs
Temp Pulse Resp BP Pulse Ox
98.2 F 83 18 112/80 100
11/08/24 19:16 11/08/24 22:18 11/08/24 22:18 11/08/24 22:18 11/08/24 22:18
MDM/Problems Addressed
Differential Diagnosis Includes:
ETOH intoxication, concussion, contusion, ICH
MDM/Problems Addressed:
Patient presenting to the emergency department for evaluation after she reportedly fell earlier this morning around 5 AM, intoxicated at that time and remains intoxicated now. Notes that she continue to drink and friend advised her to come to the
ER. CT of the head was ordered in triage and negative for any intracranial pathology. I offered the patient Motrin for pain however she declines. Given there is already surrounding granulation tissue on the laceration of the inner lip decision
was made to forego any further laceration repair. The laceration does not cross the vermilion border. Patient stable for discharge home. I did offer BCARES and crisis evaluation but patient declines. No SI/HI. Aware of return precautions. Patient
calling an Uber to take her home
Chronic conditions affecting care: Psychiatric illness (Alcohol abuse)
Acute Exacerbation and/or Progression of Chronic Illness: Psychiatric illness (Alcohol abuse)
*Radiology
Radiology exam reviewed: radiology read reviewed
*Pulse Oximetry
Patient hypoxic: no
*Critical Care Note
Total Time (30-74mins, 75-104mins- exclusive of procedures): Not Applicable
ED Attending Note
-
Portions of this chart may have been created with voice recognition software.� Occasional wrong word or��sound alike� substitutions may have occurred due to the inherent limitations of voice recognition software.
Discharge Plan
Departure
Patient Disposition: Home (Routine Discharge)
Date of Disposition: 11/08/24
Time of Disposition: 22:29
Patient with high blood pressure during this ER visit?: No
Discharge Problem:
Alcohol abuse, Accidental fall, Laceration of lower lip
Instructions: Wound Care (DC), Alcohol use disorder - ED discharge instructions
Prescriptions:
No Action
levothyroxine [Synthroid] 50 mcg Tablet
50 mcg PO DAILY
sertraline 50 mg Tablet
50 mg PO DAILY
hydroxyzine HCl 50 mg Tablet
50 mg PO Q6HPRN PRN (Reason: anxiety)
tramadol 50 mg Tablet
50 mg PO DAILYPRN PRN (Reason: moderate pain)
ondansetron 4 mg Tablet,Disintegrating
4 mg PO Q8H PRN (Reason: nausea/vomiting)
prazosin 1 mg Capsule
1 mg PO HSPRN PRN (Reason: nightmares)
pantoprazole [Protonix] 40 mg tablet,delayed release (DR/EC)
40 mg PO BID 28 Days Qty: 42 0RF
Rx Instructions:
Twice Daily for 2 weeks, then Daily for 2 weeks
Interventions
Interventions:
*Risk Screen - Suicide Last Done: 11/08/24 19:16
*General Assessment Last Done: 11/08/24 19:16
*Neglect/Abuse Screening Last Done: 11/08/24 19:16
*ED COVID-19 Vaccine History Last Done: 11/08/24 19:16
*Nursing Disposition Last Done: 11/08/24 22:57
ED-Musculoskeletal Assessment Last Done: 11/08/24 22:19
ED- Neurological Assessment Last Done: 11/08/24 22:19
ED-Skin Assessment Last Done: 11/08/24 22:19
Discharge Date and Time
Print Language: SUDANESE
== END 2024-11-08 22:59 | disposition home or self-care (01) ==
LOC: EMR 19:12
PROVIDERS: EMERGENCY PHYSICIAN Student in an Organized Health Care Education/Training Program
DX: S01.511A Laceration without foreign body of lip, initial encounter (principal); S09.90XA Unspecified injury of head, initial encounter; F10.10 Alcohol abuse, uncomplicated; W19.XXXA Unspecified fall, initial encounter; J45.909 Unspecified asthma, uncomplicated; I10 Essential (primary) hypertension; F32.A Depression, unspecified; F41.9 Anxiety disorder, unspecified; F17.290 Nicotine dependence, other tobacco product, uncomplicated
CPT/HCPCS: 99284; 70450

== ENCOUNTER 2025-04-19 15:13 | Inpatient (IN) | payer OTHER, SELFPAY ==
[2025-04-19] VITALS (14 sets, daily range): BP systolic 124–153; BP diastolic 87–108; BMI 27.4
[2025-04-19 12:22] LABS: Hematocrit 44.3 % (37.0-47.0); Hemoglobin 15.8 g/dL (12.0-16.0); Mean Corp Hgb Conc. 35.7 g/dL (33.0-37.0); Mean Corpuscular Volume 94.7 fL (81.0-99.0); Nucleated Red Blood Cells % 0 %; Platelet Count 170 10^3/uL (130-400); Red Cell Dist. Width 11.8 % (11.5-14.5)
[2025-04-19 12:36] LABS: HCG, Serum Qualitative Screen Negative
--- NOTE | 2025-04-19 12:41 | ED.GENMED ---
History of Present Illness
<Calin Nuñez PA-C - Last Filed: 04/19/25 14:11>
General
Chief Complaint: Abdominal Symptoms
Source: patient
Time Seen by Provider: 04/19/25 12:20
History of Present Illness
History of Present Illness:
40-year-old female with past medical history of alcohol abuse, anxiety and depression, PTSD, hypertension, hypothyroidism presenting to the emergency department for acute alcohol withdrawal stating her last drink was on , usually drinks at
least half a bottle of vodka per day. She endorses persistent nausea and vomiting, difficult time tolerating any liquids or solids p.o. States that she has withdrawn from alcohol before and gone to rehab, she has had hallucinations with past
withdrawals but denies any hallucinations currently. Secondary symptom of mild lightheadedness. Patient is stating she does not wish to go to rehab today stating she needs to get home to her children, currently has a disaster recovery specialist watching her
children.
Past History
<Calin Nuñez PA-C - Last Filed: 04/19/25 14:11>
Past History
ED Past Medical History: Asthma, HTN, Hypothyroidism and Psychiatric (Anxiety, depression, alcohol abuse, PTSD< ADHD)
ED Past Surgical History: None
Social History
Tobacco: Vaping (Former Cig smoker)
Alcohol: Chronic alcoholic (Daily bottle of Vodka)
Drug: None
Personal:
Living: with roommate
Employment: Employed
Review of Systems
<Calin Nuñez PA-C - Last Filed: 04/19/25 14:11>
Review of Systems
All Other Systems: ROS reviewed and negative except as documented in HPI and ROS
Phy Exam
<Calin Nuñez PA-C - Last Filed: 04/19/25 14:11>
Physical Exam
Physical Exam:
GENERAL: Alert , in no apparent distress, appears older than stated age, unwell, emesis basin filled with NBNB emesis
EYE: clear conjunctiva b/l
HEAD: NCAT
ENT: o/p clr, mmm.
CARDIAC: Tachycardic rate and rhythm
LUNGS: Clear breath sounds bilaterally, no acute respiratory distress, no wheezes/rales/rhonchi
ABDOMEN: Soft, without focal tenderness, no r/g, no cvat
NEUROLOGICAL: Alert and oriented, tremors noted with arm extended
SKIN: Warm and dry, skin intact.
MUSCULOSKELETAL: No edema, well perfused.
PSYCH: Normal and appropriate interaction.
Scores
<Calin Nuñez PA-C - Last Filed: 04/19/25 14:11>
Heart Failure Risk
Heart Failure Risk Score: Not Applicable
Heart Score for Chest Pain Patients
STEMI patient?: Not applicable
Withdrawal Assessment of Alcohol
Withdrawal Assessment Completed?: Yes
Nausea and Vomiting: Constant nausea, frequent dry heaves and vomiting
Tactile Disturbances: None
Tremor: Moderate, with patient's arms extended
Auditory Disturbances: Not present
Paroxysmal Sweats: No sweat visible
Visual Disturbances: Not present
Anxiety: Mild anxiety
Headache, Fullness in Head: Very mild
Agitation: Normal activity
Orientation and clouding of sensorium: Oriented and can do serial additions
Total CIWA Score: 13
Alcohol Withdrawal Medication Recommendation: Equal to MSAS Score 5-7. Lorazepam 1mg IV or PO NOW & re-assess q2hrs
<Ananda Murray DO - Last Filed: 04/19/25 15:21>
Withdrawal Assessment of Alcohol
Total CIWA Score: 13
Alcohol Withdrawal Medication Recommendation: Equal to MSAS Score 5-7. Lorazepam 1mg IV or PO NOW & re-assess q2hrs
Course
<Calin Nuñez PA-C - Last Filed: 04/19/25 14:11>
Orders/Labs/Results
Orders:
Orders
04/19/25 12:07
Test Result ONCE
04/19/25 12:08
Complete Blood Count/With Diff Urgent
Comprehensive Metabolic Panel Urgent
HCG, Serum Qualitative Screen Urgent
Lipase Urgent
Comment: ADD ON
04/19/25 12:21
Urinalysis Reflex To Culture Urgent
04/19/25 12:27
Add On- LAB Urgent
Tests Added?: lipase
04/19/25 12:40
Ondansetron Injectable [Zofran] 4 mg IV NOW STA
diazePAM [Valium Injection] 5 mg IV NOW STA
04/19/25 12:59
Lactated Ringers [Lr] 1,000 ml IV BOLUS
04/19/25 13:14
Venous Blood Gas Urgent
%Oxygen/Room Air: RA
04/19/25 13:55
Albumin Routine
04/19/25 14:00
Dextrose 5%/Lactringers 1000ML [D5lr] 1,000 ml IV 1,000 mls/hr
04/19/25 14:17
Add On- LAB Urgent
Tests Added?: albumin
04/19/25 14:37
Add On- LAB Stat
Tests Added?: lactic
04/19/25 14:47
Lactate Level [Lactic Acid] Urgent
04/19/25 14:50
Admit/Transfer Patient As Directed
Co-Sign Provider:
Level of Care: Inpatient admission
Assign to:: IMU- Intermediate Care
Physician / Group: do
Diagnosis: alcohol withdrawl
Reason for Hospitalization: alcohol withdrawal
Expected length of stay greater than two midnights?: Yes
ELOS- Estimated Length of Stay in days: 3
I certify the patient meets the requirements for IP care: Yes
PRN Pain Medication Management As Directed
May give lesser potent ordered pain med per pt: Yes
preference::
Protocol:: Medication orders for pain may be administered in a
manner that supports deferring to patient preference
when the pt is:
- Requesting an ordered lesser potent pain medication.
Least to most potent pain medications are defined
as: acetaminophen < NSAID < tramadol < opioids
(morphine, oxycodone, hydromorphone).
- Requesting a lesser dose of the same medication IF
ORDERED.
- Requesting a less intrusive route of administration
if both routes are prescribed by the provider (PO <
IV).
04/19/25 14:52
Code Status As Directed
Resuscitation Status: Full Code
04/19/25 15:00
Dextrose 5%/Water 1000 ml [D5w] 1,000 ml Sodium Bicarbonate 150 meq IV 100 mls/hr
04/19/25 15:13
Pantoprazole [Protonix IV] 40 mg IV NOW STA
Abnormal Lab Results
04/19/25 04/19/25 04/19/25
12:08 13:14 14:47
MCH 33.8 H pg
(27.0-31.0)
Absolute Lymphs (auto) 0.6 L 10^3/uL
(1.2-3.4)
Neutrophils % 80.2 H %
(42.2-75.2)
Lymphocytes % 10.4 L %
(20.5-51.1)
VBG pH 7.23 L
(7.32-7.43)
VBG pO2 68 H mmHg
(30-50)
VBG HCO3 14.7 L mmol/L
(22-27)
Chloride 97 L mmol/L
(98-107)
Carbon Dioxide 6 L* mmol/L
(22-30)
Glucose 132 H mg/dl
(70-99)
Lactic Acid 2.9 H mmol/L
(0.7-2.0)
Calcium 10.8 H mg/dl
(8.4-10.2)
Total Bilirubin 2.4 H mg/dl
(0.2-1.3)
AST 114 H U/L
(14-36)
ALT 126 H U/L
(0-35)
Total Protein 9.7 H g/dl
(6.3-8.2)
Lipase 358 H U/L
(23-300)
04/19/25 12:08
04/19/25 12:08
Vital Signs
Initial and Last Documented VS:
Initial Vital Signs
Temp Pulse Resp BP Pulse Ox
97.6 F 131 16 153/104 99
04/19/25 11:46 04/19/25 11:46 04/19/25 11:46 04/19/25 11:46 04/19/25 11:46
Last Documented Vital Signs
Temp Pulse Resp BP Pulse Ox
97.6 F 95 17 141/100 97
04/19/25 11:46 04/19/25 14:00 04/19/25 14:00 04/19/25 14:00 04/19/25 14:18
<Ananda Murray, DO - Last Filed: 04/19/25 15:21>
Orders/Labs/Results
Orders:
Orders
04/19/25 12:07
Test Result ONCE
04/19/25 12:08
Complete Blood Count/With Diff Urgent
Comprehensive Metabolic Panel Urgent
HCG, Serum Qualitative Screen Urgent
Lipase Urgent
Comment: ADD ON
04/19/25 12:21
Urinalysis Reflex To Culture Urgent
04/19/25 12:27
Add On- LAB Urgent
Tests Added?: lipase
04/19/25 12:40
Ondansetron Injectable [Zofran] 4 mg IV NOW STA
diazePAM [Valium Injection] 5 mg IV NOW STA
04/19/25 12:59
Lactated Ringers [Lr] 1,000 ml IV BOLUS
04/19/25 13:14
Venous Blood Gas Urgent
%Oxygen/Room Air: RA
04/19/25 13:55
Albumin Routine
04/19/25 14:00
Dextrose 5%/Lactringers 1000ML [D5lr] 1,000 ml IV 1,000 mls/hr
04/19/25 14:17
Add On- LAB Urgent
Tests Added?: albumin
04/19/25 14:37
Add On- LAB Stat
Tests Added?: lactic
04/19/25 14:47
Lactate Level [Lactic Acid] Urgent
04/19/25 14:50
Admit/Transfer Patient As Directed
Co-Sign Provider:
Level of Care: Inpatient admission
Assign to:: IMU- Intermediate Care
Physician / Group: do
Diagnosis: alcohol withdrawl
Reason for Hospitalization: alcohol withdrawal
Expected length of stay greater than two midnights?: Yes
ELOS- Estimated Length of Stay in days: 3
I certify the patient meets the requirements for IP care: Yes
PRN Pain Medication Management As Directed
May give lesser potent ordered pain med per pt: Yes
preference::
Protocol:: Medication orders for pain may be administered in a
manner that supports deferring to patient preference
when the pt is:
- Requesting an ordered lesser potent pain medication.
Least to most potent pain medications are defined
as: acetaminophen < NSAID < tramadol < opioids
(morphine, oxycodone, hydromorphone).
- Requesting a lesser dose of the same medication IF
ORDERED.
- Requesting a less intrusive route of administration
if both routes are prescribed by the provider (PO <
IV).
04/19/25 14:52
Code Status As Directed
Resuscitation Status: Full Code
04/19/25 15:00
Dextrose 5%/Water 1000 ml [D5w] 1,000 ml Sodium Bicarbonate 150 meq IV 100 mls/hr
04/19/25 15:13
Pantoprazole [Protonix IV] 40 mg IV NOW STA
Abnormal Lab Results
04/19/25 04/19/25 04/19/25
12:08 13:14 14:47
MCH 33.8 H pg
(27.0-31.0)
Absolute Lymphs (auto) 0.6 L 10^3/uL
(1.2-3.4)
Neutrophils % 80.2 H %
(42.2-75.2)
Lymphocytes % 10.4 L %
(20.5-51.1)
VBG pH 7.23 L
(7.32-7.43)
VBG pO2 68 H mmHg
(30-50)
VBG HCO3 14.7 L mmol/L
(22-27)
Chloride 97 L mmol/L
(98-107)
Carbon Dioxide 6 L* mmol/L
(22-30)
Glucose 132 H mg/dl
(70-99)
Lactic Acid 2.9 H mmol/L
(0.7-2.0)
Calcium 10.8 H mg/dl
(8.4-10.2)
Total Bilirubin 2.4 H mg/dl
(0.2-1.3)
AST 114 H U/L
(14-36)
ALT 126 H U/L
(0-35)
Total Protein 9.7 H g/dl
(6.3-8.2)
Lipase 358 H U/L
(23-300)
04/19/25 12:08
04/19/25 12:08
Vital Signs
Initial and Last Documented VS:
Initial Vital Signs
Temp Pulse Resp BP Pulse Ox
97.6 F 131 16 153/104 99
04/19/25 11:46 04/19/25 11:46 04/19/25 11:46 04/19/25 11:46 04/19/25 11:46
Last Documented Vital Signs
Temp Pulse Resp BP Pulse Ox
97.6 F 95 17 141/100 97
04/19/25 11:46 04/19/25 14:00 04/19/25 14:00 04/19/25 14:00 04/19/25 14:18
<Calin Nuñez PA-C - Last Filed: 04/19/25 14:11>
MDM/Problems Addressed
Differential Diagnosis Includes:
Acute ETOH withdrawal
Substance abuse
Dehydration
Electrolyte imbalance
MARCELLO
Hepatitis
MDM/Problems Addressed:
40-year-old female presenting to the ER for evaluation of persistent nausea and vomiting in the setting of recently stopping alcohol 2 days ago. History of withdrawals in the past. Has gone to rehab but is currently declining any intention of
going to rehab today. She is noted to be tremulous, significantly hypertensive and tachycardic. I do have significant concern for acute alcohol withdrawal. Will treat with IV Valium as well as continued IV fluids and Zofran for nausea.
Disposition pending, patient stating she is unable to be admitted because of needing to get home to her children.
Chronic conditions affecting care: Psychiatric illness
Acute Exacerbation and/or Progression of Chronic Illness: Psychiatric illness
<Calin Nuñez PA-C - Last Filed: 04/19/25 14:11>
*Pulse Oximetry
SaO2: 99
Oxygen Mode of Delivery: Room air
Patient hypoxic: no
*Stamping Die Maker Interpretation
Rate: tachycardiac
Heart Rate: 124
Rhythm: sinus
*Critical Care Note
Total Time (30-74mins, 75-104mins- exclusive of procedures): 30
comment:
Critical care statement: A total of 30 minutes of critical care time was provided for this patient. This includes management of unstable vital signs, evaluation of the patient at bedside, reviewing the patient's pertinent medical records, discussion
with consultants, review of old EKGs and review of pertinent medical records. This time with separate from time utilized to perform the aforementioned documented procedures
Data Reviewed
Review of Other/Old Records Reveals: Labs, Records and Discharge Summary
<Calin Nuñez PA-C - Last Filed: 04/19/25 14:11>
Patient Management
Discussion with other providers: Hospitalist
Escalation/DeEscalation of care consider admission/obs:
Patient amenable to being admitted. She has an acidosis of 7.23, she states she did not ingest any ethylene glycol or other substances. I do suspect that this is mainly dehydration and ketosis from the persistent vomiting. Continue IV fluids. As
needed benzos. Hospitalist team aware and accepts for admission.
<Ananda Murray DO - Last Filed: 04/19/25 15:21>
Update Note
Update Note:
40-year-old female chronic alcoholic who presents with withdrawal symptoms and not feeling well. She admits that she has been vomiting and not really eating anything and having a difficult time holding down fluids. Exam: Awake and alert mildly
tremulous. Assessment plan: Labs reveal an anion gap metabolic acidosis. Given IV fluids and given dextrose as I suspect alcoholic ketoacidosis. Patient denies other toxic alcohols. Continue IV fluids. Continue benzodiazepines. Admit.
Critical care time 35 minutes
ED Attending Note
<Calin Nuñez PA-C - Last Filed: 04/19/25 14:11>
-
Portions of this chart may have been created with voice recognition software.� Occasional wrong word or��sound alike� substitutions may have occurred due to the inherent limitations of voice recognition software.
<Ananda Murray DO - Last Filed: 04/19/25 15:21>
ED Attending Note
Patient seen and examined by attending physician: Yes
I performed the substantive portion of visit, reviewed & personally made and approve the management plan that is documented in note by myself or TERRANCE.: Yes
Discharge Plan
Departure
Patient Disposition: Admit
Date of Disposition: 04/19/25
Time of Disposition: 14:05
Presentation/result/management discussed w/ accepting MD/DO: Hospitalist
Discharge Problem:
Alcohol withdrawal
Interventions
Interventions:
*Risk Screen - Suicide Last Done: 04/19/25 11:46
*General Assessment Last Done: 04/19/25 12:09
*Neglect/Abuse Screening Last Done: 04/19/25 11:46
*ED- Fall Risk Assessment Last Done: 04/19/25 11:54
*ED COVID-19 Vaccine History Last Done: 04/19/25 11:54
KF-Olpvnf-Ionnkazzer Assessment Last Done: 04/19/25 12:09
[2025-04-19] MEDS: VALIUM INJECTION 5 MG IV (12:43)
[2025-04-19] MEDS: ZOFRAN 4 MG IV (12:43)
[2025-04-19 12:52] LABS: ALT (SGPT) 126 U/L (0-35); AST (SGOT) 114 U/L (14-36); Alkaline Phosphatase 86 U/L (38-126); Blood Urea Nitrogen 13 mg/dl (7-17); Calcium 10.8 mg/dl (8.4-10.2); Carbon Dioxide 6 mmol/L (22-30); Chloride 97 mmol/L (98-107); Glucose 132 mg/dl (70-99); Potassium 4.1 mmol/L (3.5-5.1); Sodium 137 mmol/L (135-145); Total Protein 9.7 g/dl (6.3-8.2); eGFR > 60.00
[2025-04-19] MEDS: LR 1000 IV (13:06)
[2025-04-19 13:21] LABS: Venous Blood Gas B.E. -11.9 mmol/L (-4 to +4); Venous Blood Gas O2 Sat % 88.5 %
[2025-04-19] MEDS: D5LR 1000 IV (13:24)
--- NOTE | 2025-04-19 14:16 | HPS.HSE ---
Addendum entered and electronically signed by Riaz Billingsley MD 04/19/25 15:12:
40-year-old female with a past medical history of alcohol use disorder, dependency, reflux, anxiety/depression, and hypothyroidism presents with worsening nausea, vomiting, abdominal pain, concerning for alcohol withdrawal. Patient was drinking a
half bottle of vodka day. She reports her last drink was on . She also reports some hematemesis. She has a high anion gap metabolic acidosis, likely due to alcoholic/starvation ketosis. Will treat with phenobarbital taper, IV Protonix
twice daily, sodium bicarb IV fluids, and SAS protocol.
I have personally seen and examined the patient, and agree with the plan of care as documented by DALTON Salmeron.
Advance care planning discussed, patient is a full code.
All other issues as outlined by the advanced care practitioner.
Total time spent to see the patient on the floor, examine the patient, review data and lab results, discuss treatment plan with patient, nursing staff around 76 minutes.
Original Note:
Family Physician
-
Family Physician: NOT KNOW UNKNOWN - PT DOES
Chief Complaint
-
nausea and vomiting
History of Present Illness
40-year-old female with past medical history of alcohol abuse, anxiety and depression, PTSD, hypertension, hypothyroidism presenting to the emergency department with nausea and vomiting for past few days.patient stated cough, congestion runny nose
two weeks ago. she decreased her vodka intake. for past few days, she is complaining of burning sensation in her chest, and vomiting with any oral intake. denied abdominal pain or diarrhea. her last vodka intake was . she has not eat
anything since last . she noted BELTR[place]N today morning. denied fever, chills, chest pain, sob. denied dysuria or hematuria.
admitting for further management.
Medical History
Past Medical History
Past Medical History: Reports Other
Additional Past Medical History:
Depression, hypothyroidism, anxiety, asthma, alcohol abuse, seasonal allergies, nerve pain, GERD, concussion
Past Surgical History: Reports Other
Additional Past Surgical History:
Right hand skin graft, wisdom teeth extraction
Social History
Tobacco: Vaping
Alcohol: Daily
Drug: None
Personal: Single
Living: With Roomate
Family History
Family History: Not pertinent
Allergies / Home Medications
Allergies reflects when Allergies were last updated in [facility].
Home Medications with original date entered in [facility]
Allergy/Medication List:
Allergies
Allergy/AdvReac Type Severity Reaction Status Date / Time
No Known Allergies Allergy Verified 04/19/25 11:45
Home Medications
levothyroxine 50 mcg tablet (Synthroid) 50 mcg PO DAILY Thyroid 08/15/24
hydroxyzine HCl 50 mg tablet 50 mg PO Q6HPRN PRN anxiety 10/31/24
ondansetron 4 mg disintegrating tablet 4 mg PO Q8HPRN PRN nausea/vomiting 10/31/24
prazosin 1 mg capsule 1 mg PO HSPRN PRN nightmares 10/31/24
sertraline 50 mg tablet 50 mg PO DAILY Mental Health 10/31/24
pantoprazole 40 mg tablet,delayed release (Protonix) 40 mg PO BID 28 days #42 tabs 11/02/24
Review of Systems
-
Constitutional: Reports No Symptoms
EENT: Reports No Symptoms
Respiratory: Reports No Symptoms
Cardiac: Reports No Symptoms
Abdomen/GI: Reports Nausea and Vomiting
: Reports No Symptoms
Musculoskeletal: Reports No Symptoms
Skin: Reports No Symptoms
Neurological: Reports No Symptoms
Endocrine: Reports No Symptoms
Hematologic/Lymphatic: Reports No Symptoms
Psych: Reports No Symptoms
Physical Exam
Vital Signs
Vital Signs
Temp Pulse Resp BP Pulse Ox
97.6 F 92 20 138/105 99
04/19/25 11:46 04/19/25 13:00 04/19/25 13:00 04/19/25 13:00 04/19/25 12:41
Physical Exam
General: Well Developed, Well Nourished and No Apparent Distress
HEENT: NormoCephalic, Moist mucous membranes and Atraumatic
Respiratory: Clear
Cardiac: S1/S2 and Regular Rhythm; No Murmur or Rub
GI: Soft, Non Tender, Non Distended and Normal Bowel Sounds; No Organomegaly
Rectal: Deferred by Provider
Musculoskeletal: No Clubbing, No Cyanosis and No Edema
Skin: No Rash
Neuro: AO x 3 and Nonfocal/grossly intact
Psych: Calm
Laboratory Results
-
04/19/25 12:08
04/19/25 12:08
Laboratory Results
Total Bilirubin 2.4 mg/dl (0.2-1.3) H 04/19/25 12:08
AST 114 U/L (14-36) H 04/19/25 12:08
ALT 126 U/L (0-35) H 04/19/25 12:08
Alkaline Phosphatase 86 U/L (38-126) 04/19/25 12:08
Lipase Cancelled 04/19/25 12:21
Data Reviewed
-
Lab Data: Labs Reviewed by me
Impression/Plan
-
# Alcohol withdrawal
#alcohol use disorder
# Transaminitis secondary to alcohol
- Alcohol protocol initiated
- Monitor MSAS
- AST 114, ALT 126
-IV ppi, zofran, keep patient NPO, advance diet as tolerated.
-initiated phenobarb
# High anion gap metabolic acidosis likely alcoholic/starvation ketosis
- CO2 6
- Fluids continue
- Monitor BMP in a.m.
-lactic pending
-fluids with bicarb initiated
#Anxiety and Depression
- Hydroxyzine, prazosin, sertraline continue
#Hypothyroidism
-Continue with Levothyroxine as possible
# GERD
- PPI
#DVT Proph
- Lovenox
#Code Status-- Full code
[2025-04-19] MEDS: D5LR IV (15:25)
[2025-04-19] MEDS: PROTONIX IV 40 MG IV ×2 (15:30→19:48)
[2025-04-19] MEDS: NSS (PRESERVATIVE FREE) 10 ML IV ×2 (15:30→19:48)
--- NOTE | 2025-04-19 16:13 | CM ---
installation manager reviewed patient's chart and met with patient and rn case manager received a consult for substance abuse counseling, rn case manager discussed with patient possible treatment options and patient reports that she would be willing to talk to
[facility] but her biggest concern is getting children back to [place] where their father lives, patient has 2 children 13 y.o and a 9 y.o, and she has them on the weekends and their father has them during the week. Currently her roommate and 2
neighbors are helping her out with her children but she needs to find transport to get them back to [place] therefore she is anxious to return to home as soon as possible.
Pharmacy: [facility] in [place]
Plan; Home when stable, needs to drive her children to [place], not able to meet with [facility] now.
[2025-04-19] MEDS: SODIUM BICARBONATE 1150 MEQ IV (16:48)
[2025-04-19] MEDS: PHENOBARBITAL 104 MG IV (16:50)
[2025-04-19] MEDS: THIAMINE INJECTION 200 MG IV ×2 (17:26→22:26)
[2025-04-19] MEDS: LOVENOX 40 MG SC (17:26)
[2025-04-19 18:45] LABS: Albumin 5.0 g/dl (3.5-5.0); Magnesium 1.6 mg/dl (1.6-2.3)
[2025-04-19] MEDS: NICODERM TRANSDERMAL 14 MG TRANSDERM (22:25)
[2025-04-19] MEDS: PHENOBARBITAL 97.5 MG IV (22:26)
--- NOTE | 2025-04-19 23:14 | PTCARENOTE ---
patient stated she vapes everyday and is having cravings. TT MARKET ANALYSIS DIRECTOR and nicotine patch ordered and applied. assessment and vital signs as charted. call gomez in reach.
[2025-04-20] VITALS (9 sets, daily range): BP systolic 118–133; BP diastolic 84–97
[2025-04-20 03:58] LABS: Hematocrit 37.6 % (37.0-47.0); Hemoglobin 14.0 g/dL (12.0-16.0); Mean Corp Hgb Conc. 37.2 g/dL (33.0-37.0); Mean Corpuscular Volume 94.0 fL (81.0-99.0); Platelet Count 112 10^3/uL (130-400); Red Cell Dist. Width 11.5 % (11.5-14.5)
[2025-04-20 04:18] LABS: ALT (SGPT) 94 U/L (0-35); AST (SGOT) 112 U/L (14-36); Albumin 4.6 g/dl (3.5-5.0); Alkaline Phosphatase 59 U/L (38-126); Blood Urea Nitrogen 6 mg/dl (7-17); Calcium 9.3 mg/dl (8.4-10.2); Carbon Dioxide 26 mmol/L (22-30); Chloride 96 mmol/L (98-107); Estimated Creatinine Clearance > 125 ml/min; Glucose 120 mg/dl (70-99); Magnesium 1.4 mg/dl (1.6-2.3); Potassium 3.5 mmol/L (3.5-5.1); Sodium 133 mmol/L (135-145); Total Protein 6.9 g/dl (6.3-8.2); eGFR > 60.00
[2025-04-20] MEDS: SYNTHROID 50 MCG PO (04:53)
[2025-04-20] MEDS: SODIUM BICARBONATE 1150 MEQ IV (04:53)
[2025-04-20] MEDS: ZOLOFT 50 MG PO (08:02)
[2025-04-20] MEDS: FOLVITE 1 MG PO (08:02)
[2025-04-20] MEDS: PROTONIX IV 40 MG IV ×2 (08:03→20:15)
[2025-04-20] MEDS: NSS (PRESERVATIVE FREE) 10 ML IV ×2 (08:03→20:16)
[2025-04-20] MEDS: PHENOBARBITAL 97.5 MG IV ×3 (08:03→21:59)
[2025-04-20] MEDS: THIAMINE INJECTION 200 MG IV ×3 (08:10→22:03)
--- NOTE | 2025-04-20 09:31 | W.PN.HOSP.TC ---
Addendum entered and electronically signed by Riaz Billingsley MD 04/20/25 17:14:
#Hypophosphatemia
#Hypomagnesemia
Replete by IV and p.o., recheck a.m. labs
Original Note:
Today's Communication/Plan
-
see bold
Assessment / Plan
Assessment / Plan
# Alcohol withdrawal
# Alcohol use disorder
# Transaminitis secondary to alcohol
-Continue phenobarbital taper, MSAs protocol, thiamine, folic acid
-Trend LFTs, patient declined alcohol rehab
# Hematemesis prior to admission
# GERD
-Resolved, continue PPI
# High anion gap metabolic acidosis due to alcoholic/starvation ketosis
-Resolved status post sodium bicarb IV fluids
#Anxiety and Depression
- Hydroxyzine, prazosin, sertraline continue
#Hypothyroidism
-Continue with Levothyroxine as possible
#Nicotine dependency
- Nicotine patch
DVT prophylaxis�SCDs
Full code
Total time spent to see the patient on the floor, examine the patient, review data and lab results, discuss treatment plan with patient, nursing staff around 45 minutes.
Physical Exam
General: No acute distress
HEENT: Normocephalic, Atraumatic, EOMI, MMM
Respiratory: Clear to Auscultation bilaterally
Cardiac: Normal S1/S2, Regular Rate and Rhythm
GI: Soft, Nontender, Nondistended, Normal Bowel Sounds
Extremities: No Clubbing, Cyanosis, or Edema
Neuro: Nonfocal/Grossly Intact, mild hand tremors
Psych: Calm, Cooperative
Anticipated Discharge: 24 - 48 hours
Subjective/Interval History
-
Date of Service: April 20, 2025
Nausea and vomiting resolved. She has the tremors. She complains of reflux. No fever.
Objective Data
-
Labs:
Laboratory Results
04/20/25
03:40
WBC 4.1 L
Hgb 14.0
Hct 37.6
Plt Count 112 L D
Sodium 133 L
Potassium 3.5
Chloride 96 L
Carbon Dioxide 26
BUN 6 L
Creatinine 0.5 L
Glucose 120 H
Calcium 9.3 D
Total Bilirubin 2.1 H
AST 112 H
ALT 94 H
Alkaline Phosphatase 59
Vital Signs:
Vital Signs
Temp Pulse Resp BP Pulse Ox
98.3 F 71 18 126/90 96
04/20/25 07:55 04/20/25 06:00 04/20/25 06:00 04/20/25 04:56 04/20/25 06:00
I&O
04/19/25 04/20/25 04/21/25
06:59 06:59 06:59
Intake Total 1000 / 1000
Balance 1000 / 1000
[2025-04-20] MEDS: MAGNESIUM SULFATE 50 IV (10:21)
[2025-04-20] MEDS: NEUTRA-PHOS POWDER PACKET 250 MG PO ×4 (10:21→21:57)
[2025-04-20] MEDS: SODIUM PHOSPHATE 255 MEQ IV (11:18)
[2025-04-20] MEDS: NICODERM TRANSDERMAL 14 MG TRANSDERM (15:36)
[2025-04-20] MEDS: TYLENOL 650 MG PO (16:40)
[2025-04-20 17:52] LABS: Urine Character Clear (Clear)
[2025-04-21] MEDS: ZOFRAN 4 MG IV ×3 (02:40→19:58)
[2025-04-21 02:58] VITALS: BP 119/84
[2025-04-21] MEDS: SYNTHROID 50 MCG PO (06:17)
[2025-04-21 07:20] VITALS: BP 130/83
[2025-04-21] MEDS: ZOLOFT 50 MG PO (07:25)
[2025-04-21] MEDS: FOLVITE 1 MG PO (07:25)
[2025-04-21] MEDS: NSS (PRESERVATIVE FREE) 10 ML IV ×2 (07:28→19:58)
[2025-04-21] MEDS: PROTONIX IV 40 MG IV ×2 (07:29→19:58)
[2025-04-21] MEDS: THIAMINE INJECTION 200 MG IV ×3 (07:30→23:11)
[2025-04-21] MEDS: PHENOBARBITAL 97.5 MG IV ×2 (07:31→16:12)
[2025-04-21 08:06] LABS: ALT (SGPT) 89 U/L (0-35); AST (SGOT) 96 U/L (14-36); Albumin 4.1 g/dl (3.5-5.0); Alkaline Phosphatase 63 U/L (38-126); Blood Urea Nitrogen 8 mg/dl (7-17); Calcium 9.8 mg/dl (8.4-10.2); Carbon Dioxide 33 mmol/L (22-30); Chloride 96 mmol/L (98-107); Estimated Creatinine Clearance > 125 ml/min; Glucose 104 mg/dl (70-99); Magnesium 1.6 mg/dl (1.6-2.3); Potassium 3.4 mmol/L (3.5-5.1); Sodium 136 mmol/L (135-145); Total Protein 6.4 g/dl (6.3-8.2); eGFR > 60.00
[2025-04-21] MEDS: NICODERM TRANSDERMAL 14 MG TRANSDERM (08:30)
--- NOTE | 2025-04-21 10:28 | W.PN.HOSP.TC ---
Today's Communication/Plan
-
Continue alcohol withdrawal protocol
Replete potassium
Psychiatry consult
Assessment / Plan
Assessment / Plan
Gen-sleepy but arousable, NAD
HEENT-NC, AT, anicteric, clear oral mm
Neck-supple
CV-reg, no M, +S1/S2
Lungs-clear B/L
Abd-soft, NT, ND
Ext-no edema
Musculoskeletal-no cyanosis, clubbing
Skin-warm and dry
Neuro-grossly non-focal, minimal hand tremors
Psych-calm, cooperative
Alcohol withdrawal syndrome -continue phenobarbital taper. Continue diazepam as needed.
Alcohol use disorder -suspect due to underlying mental illness. Consult psychiatry. Patient agreeable.
Acute alcohol induced hepatitis -LFTs improving.
Hyponatremia -improved.
Hypokalemia -will replete orally.
Hypomagnesemia -improving, magnesium 1.6.
Hypophosphatemia -resolved. Can discontinue potassium phosphate.
Leukopenia/thrombocytopenia -appears chronic, possibly related to alcohol use. Hemoglobin normal.
Hematemesis prior to admission
GERD/history of esophagitis -esophagitis noted on EGD from October 2024. Noted healing Jamila-Bone tear.
-Resolved, continue PPI
High anion gap metabolic acidosis due to alcoholic/starvation ketosis
-Resolved status post sodium bicarb IV fluids
Anxiety and Depression -noncompliant with home medications. Does not have a psychiatrist. Consult psychiatry.
Hypothyroidism -noncompliant with levothyroxine prior to admission. Check TSH.
-Continue with Levothyroxine as possible
Nicotine dependency
- Nicotine patch
Full code
Anticipated Discharge: Within 24 hours
Subjective/Interval History
-
Date of Service: April 21, 2025
Patient seen and examined, no complaints.
Objective Data
-
Labs:
Laboratory Results
04/21/25
07:17
Sodium 136
Potassium 3.4 L
Chloride 96 L
Carbon Dioxide 33 H
BUN 8
Creatinine 0.5 L
Glucose 104 H
Calcium 9.8
Total Bilirubin 1.4 H
AST 96 H
ALT 89 H
Alkaline Phosphatase 63
Vital Signs:
Vital Signs
Temp Pulse Resp BP Pulse Ox
98.7 F 82 16 130/83 96
04/21/25 07:20 04/21/25 07:20 04/21/25 07:20 04/21/25 07:20 04/21/25 07:20
I&O
04/20/25 04/21/25 04/22/25
06:59 06:59 06:59
Intake Total 1000 / 1000 960 / 960
Balance 1000 / 1000 960 / 960
Review of Systems
-
History Source: Patient
All other systems: Reviewed and negative
[2025-04-21] MEDS: KCL 40 MEQ PO (10:33)
[2025-04-21] MEDS: NEUTRA-PHOS POWDER PACKET 250 MG PO (10:33)
[2025-04-21] MEDS: SENOKOT-S 1 TABLET PO (10:45)
[2025-04-21 11:15] VITALS: BP 124/90
--- NOTE | 2025-04-21 12:02 | CM ---
CM reviewed chart, reviewed with Hospitalist, Psych consulted. Patient seen bedside, reports she is not feeling very well currently. CM discussed [facility] resources with patient. Patient says she cannot go inpatient, would be agreeable to call from
[facility] to obtain outpatient resources. CM spoke with Rafael from [facility], will call patient today. CM inquired where patients children are, patient confirms children are with their father, are currently in school. CM will continue to follow for all
discharge planning needs.
Plan; Psych consulted, agreeable to phone call with [facility].
[2025-04-21 12:27] LABS: TSH 2.18 uIU/ml (0.47-4.68)
[2025-04-21 15:29] VITALS: BP 112/80
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
[2025-04-21] MEDS: LOVENOX SC (18:19)
[2025-04-21 19:24] VITALS: BP 131/85
[2025-04-21] MEDS: KCL 20 MEQ PO (19:58)
[2025-04-21] MEDS: LUMINAL 64.8 MG PO (21:06)
[2025-04-21 23:22] VITALS: BP 146/87
[2025-04-22 03:37] VITALS: BP 122/81
[2025-04-22] MEDS: SYNTHROID 50 MCG PO (05:05)
[2025-04-22] MEDS: ZOFRAN 4 MG IV ×3 (06:22→20:43)
[2025-04-22 07:25] VITALS: BP 110/70
[2025-04-22] MEDS: NICODERM TRANSDERMAL 14 MG TRANSDERM (08:15)
[2025-04-22] MEDS: FOLVITE 1 MG PO (08:15)
[2025-04-22] MEDS: ZOLOFT 50 MG PO (08:15)
[2025-04-22] MEDS: PROTONIX IV 40 MG IV ×2 (08:15→20:43)
[2025-04-22] MEDS: KCL 20 MEQ PO ×2 (08:15→20:42)
[2025-04-22] MEDS: NSS (PRESERVATIVE FREE) 10 ML IV ×2 (08:16→20:43)
[2025-04-22] MEDS: THIAMINE INJECTION 200 MG IV (08:18)
[2025-04-22] MEDS: LOVENOX SC (08:18)
[2025-04-22] MEDS: LUMINAL 64.8 MG PO ×3 (08:22→23:29)
[2025-04-22 08:56] LABS: Hematocrit 34.5 % (37.0-47.0); Hemoglobin 12.6 g/dL (12.0-16.0); Mean Corp Hgb Conc. 36.5 g/dL (33.0-37.0); Mean Corpuscular Volume 94.3 fL (81.0-99.0); Nucleated Red Blood Cells % 0 %; Platelet Count 116 10^3/uL (130-400); Red Cell Dist. Width 11.5 % (11.5-14.5)
--- NOTE | 2025-04-22 09:27 | PN.CDI ---
CDI
- -
CDI:
Physician Documentation Request
Admit Date: 04/19/25 15:13
Dear Doctor Nic,
Patient admitted for alcohol withdrawal.
ED Physician Documentation: 'stating her last drink was on , usually drinks at least half a bottle of vodka per day'
04/21 Hospitalist PN: 'Alcohol use disorder -suspect due to underlying mental illness. Consult psychiatry. Patient agreeable. Acute alcohol induced hepatitis'
If possible, please provide further specificity as outlined below:
Alcohol dependence
Alcohol use
Other
Use of terms such as suspected, likely, concern for, or probable (associated with a specific diagnosis that is being evaluated, monitored, or treated as if it exists) are acceptable and can be coded in the inpatient setting, when documented at the
time of discharge.
Thank you,
Lana Ramirez RN, BSN
CDI Specialist
Available via [facility] text
Please use your independent medical judgment in providing your response.
[2025-04-22 09:35] LABS: ALT (SGPT) 89 U/L (0-35); AST (SGOT) 99 U/L (14-36); Albumin 4.0 g/dl (3.5-5.0); Alkaline Phosphatase 64 U/L (38-126); Blood Urea Nitrogen 7 mg/dl (7-17); Calcium 9.1 mg/dl (8.4-10.2); Carbon Dioxide 28 mmol/L (22-30); Chloride 100 mmol/L (98-107); Estimated Creatinine Clearance > 125 ml/min; Glucose 101 mg/dl (70-99); Potassium 3.3 mmol/L (3.5-5.1); Sodium 135 mmol/L (135-145); Total Protein 6.2 g/dl (6.3-8.2); eGFR > 60.00
[2025-04-22 11:15] VITALS: BP 122/86
--- NOTE | 2025-04-22 12:00 | PTCARENOTE ---
04/22- Patient c/o persistent nausea. She also states a dull continuous pain in her LUQ that is consistently about a 4/10 with an occasional intermittent 6/10 sharp pain in the same area. She is able to eat and keep food down. States she had a
loose soft brown BM this morning. Abd soft/obese with Tenderness to Touch in LUQ; +BSX4. Skin= warm/pink/dry. Educated on GI health, hydration and healthy diet. Notified Physician. Administer Zofran as ordered. Continue to monitor.
[2025-04-22] MEDS: KCL 270 MEQ IV (12:08)
[2025-04-22 12:14] LABS: Magnesium 1.5 mg/dl (1.6-2.3)
--- NOTE | 2025-04-22 12:39 | W.PN.HOSP.TC ---
Addendum entered and electronically signed by Jose Lucero DO 04/22/25 13:40:
Alcohol use disorder and dependence
Original Note:
Today's Communication/Plan
-
Replete potassium, magnesium
Add Compazine as needed
Assessment / Plan
Assessment / Plan
Gen -Awake, alert, NAD
HEENT-NC, AT, anicteric, clear oral mm
Neck-supple
CV-reg, no M, +S1/S2
Lungs-clear B/L
Abd-soft, NT, ND
Ext-no edema
Musculoskeletal-no cyanosis, clubbing
Skin-warm and dry
Neuro-grossly non-focal, minimal hand tremors
Psych-calm, cooperative
Alcohol withdrawal syndrome -continue phenobarbital taper. Continue diazepam as needed.
Alcohol use disorder -abstinence recommended. Appreciate psychiatry input. Patient wants to avoid rehab. She understands that she needs to abstain completely to improve her health.
Acute alcohol induced hepatitis -LFTs improving.
Hyponatremia -improved.
Hypokalemia -will replete p.o./IV.
Hypomagnesemia -1.5 today, replete IV.
Hypophosphatemia -resolved. Can discontinue potassium phosphate.
Leukopenia/thrombocytopenia -appears chronic, possibly related to alcohol use. Hemoglobin normal.
Hematemesis prior to admission
GERD/history of esophagitis -esophagitis noted on EGD from October 2024. Noted healing Jamila-Bone tear.
-Resolved, continue PPI twice daily
Still with lingering nausea but improved compared to admission. Getting Zofran as needed, add Compazine as needed.
High anion gap metabolic acidosis due to alcoholic/starvation ketosis
-Resolved status post sodium bicarb IV fluids
Anxiety and Depression -noncompliant with home medications. Psychiatry input noted.
Hypothyroidism -noncompliant with levothyroxine prior to admission. TSH normal.
-Continue with Levothyroxine as possible
Nicotine dependency
- Nicotine patch
Full code
Dispo -potential discharge either later today or tomorrow morning.
Anticipated Discharge: Within 24 hours
Subjective/Interval History
-
Date of Service: April 22, 2025
Patient seen and examined. Complaining of mild nausea, denies vomiting. Mild upset stomach. Overall improved compared to day of admission.
Objective Data
-
Labs:
Laboratory Results
04/22/25
07:56
WBC 3.9 L
Hgb 12.6
Hct 34.5 L
Plt Count 116 L
Sodium 135
Potassium 3.3 L
Chloride 100
Carbon Dioxide 28
BUN 7
Creatinine 0.5 L
Glucose 101 H
Calcium 9.1
Total Bilirubin 0.8
AST 99 H
ALT 89 H
Alkaline Phosphatase 64
Vital Signs:
Vital Signs
Temp Pulse Resp BP Pulse Ox
98.3 F 74 16 122/86 99
04/22/25 11:15 04/22/25 11:15 04/22/25 11:15 04/22/25 11:15 04/22/25 11:15
I&O
04/21/25 04/22/25 04/23/25
06:59 06:59 06:59
Intake Total 960 / 960 1240 / 1240
Balance 960 / 960 1240 / 1240
Review of Systems
-
History Source: Patient
All other systems: Reviewed and negative
[2025-04-22 14:49] VITALS: BP 118/81
--- NOTE | 2025-04-22 14:59 | CM ---
Addendum entered by Luba Todd 04/22/25 15:01:
Spoke with Jo from [facility], left VM for patient on cell phone, attempted to call room twice earlier with no response. Left contact number if patient interested in resources once d/c.
Original Note:
CM reviewed chart, spoke with oJ from [facility], will call patient- provided with patients cell phone number. Patient seen bedside, reports no needs from CM at this time, confirms transportation home from friends upon discharge. CM will continue to
follow for all discharge planning needs.
Plan; home no needs, [facility] to provide resources
[2025-04-22] MEDS: MAGNESIUM SULFATE 100 IV (15:45)
[2025-04-22 15:56] LABS: Lipase 356 U/L (23-300)
[2025-04-22] MEDS: VITAMIN B1 100 MG PO (20:42)
[2025-04-22 23:34] VITALS: BP 107/71
--- NOTE | 2025-04-23 04:00 | DOWNTIME ---
There was a [employer] Client [employer] Instrument [employer]sembler Downtime on 04/23/2025 from 0100 to 04/23/2025 at 0215. Downtime documentation of patient's care, including medication administrations, has been reconciled in the electronic record per guidelines. Refer to the
patient's paper chart under the miscellaneous tab to see printed paper medication records and downtime forms.
[2025-04-23] MEDS: SYNTHROID 50 MCG PO (05:04)
[2025-04-23] MEDS: ZOFRAN 4 MG IV ×2 (06:37→18:59)
[2025-04-23 07:00] VITALS: BP 121/76
[2025-04-23 07:12] LABS: Hematocrit 34.5 % (37.0-47.0); Hemoglobin 12.6 g/dL (12.0-16.0); Mean Corp Hgb Conc. 36.5 g/dL (33.0-37.0); Mean Corpuscular Volume 96.6 fL (81.0-99.0); Nucleated Red Blood Cells % 0 %; Platelet Count 126 10^3/uL (130-400); Red Cell Dist. Width 11.5 % (11.5-14.5)
[2025-04-23 07:40] LABS: ALT (SGPT) 100 U/L (0-35); AST (SGOT) 118 U/L (14-36); Albumin 4.0 g/dl (3.5-5.0); Alkaline Phosphatase 74 U/L (38-126); Blood Urea Nitrogen 6 mg/dl (7-17); Calcium 8.6 mg/dl (8.4-10.2); Carbon Dioxide 27 mmol/L (22-30); Chloride 102 mmol/L (98-107); Estimated Creatinine Clearance > 125 ml/min; Glucose 111 mg/dl (70-99); Magnesium 2.1 mg/dl (1.6-2.3); Potassium 4.4 mmol/L (3.5-5.1); Sodium 136 mmol/L (135-145); Total Protein 6.2 g/dl (6.3-8.2); eGFR > 60.00
[2025-04-23] MEDS: LUMINAL 64.8 MG PO ×2 (08:24→15:44)
[2025-04-23] MEDS: NICODERM TRANSDERMAL 14 MG TRANSDERM (08:24)
[2025-04-23] MEDS: ZOLOFT 50 MG PO (08:25)
[2025-04-23] MEDS: KCL 20 MEQ PO ×2 (08:25→21:44)
[2025-04-23] MEDS: PROTONIX IV 40 MG IV ×2 (08:25→21:45)
[2025-04-23] MEDS: VITAMIN B1 100 MG PO ×2 (08:25→21:44)
[2025-04-23] MEDS: FOLVITE 1 MG PO (08:25)
[2025-04-23] MEDS: NSS (PRESERVATIVE FREE) 10 ML IV ×2 (08:26→21:45)
--- NOTE | 2025-04-23 11:05 | CON.GI ---
Addendum entered and electronically signed by Mina Ruiz MD 04/23/25 14:39:
I saw and examined the patient.
The CAR FRAMER or PA's note was reviewed and I agree with the note.
Comment: 40yo female presents with EtOH withdrawal. She has had n/v, abd pain while she was cutting back on EtOH with URI symptoms. She has drank chronically and was admitted in the past for EtOH. Had EGD in October- Grade C esophagitis, MW tear,
no active bleeding. She also reports urgency with BMs
REC:
Check US
Check hepatitis B/C serologies with elevated LFTs, likely due to EtOH
Follow sx and if not improving with EtOH cessation, consider CT next
Mostly could be due to EtOH
Original Note:
Consultation
-
Date/Time Consultation Requested: 04/23/25- 1030
Date/Time Consultation Performed: 04/23/25 1100
Requesting Provider: Jose Lucero DO
Performing Provider: DALTON Mckeon, Mina Ruiz MD
Reason for Consultation: abdominal pain and nausea after meals
Medical History
Chief Complaint / HPI
Chief Complaint: abdominal pain and nausea
History of Present Illness:
Pt is a 40yo with hx anxiety/depression, bipolar disorder, HTN, asthma, PTSD, ADHD, fatty liver, ETOH abuse disorder, ETOH hepatitis, prior hematemesis, with multiple admission to ER and hospital for withdrawal. In 2022 she completed EGD with
Dr. Higginbotham with no active bleeding source, mild severe esophagitis without bleeding, congestion, nodularity and texture change in stomach and duodenitis bx with neg H pylori, some focal necrosis on esophageal bx neg fungal organism seen. She had
repeat EGD in 10/2024 with grade C esophagitis, probable healing MW tear, no active bleeding, small HH no specimens collected. She now presents with abdominal pain and ETOH withdrawal with drinking 1/2 bottle per day with nausea and vomiting with
difficulty tolerating liquids and solids.
In review with patient she states she is feeling improved from withdrawal but still with abdominal pain. Pain in epigastric/periumbilical. Pain is constant but worse post prandial. She will also get some urgency for stool after eating but
pass soft stools. Pain is similar to admission in past and better after meals. She was unsure about wt loss. She currently denies odynophagia, dysphagia, but did have some nausea/vomiting prior to admission with small amount of blood after
vomiting several times. She denies diarrhea, blood or black in stools. She also admits to stopping all medications several weeks prior to admission including PRN Omeprazole use. No hx colonoscopy in past. Labs since admission with low K now
improved, persistent LFT elevation, lipase 356, normal albumin, mild thrombocytopenia, leukopenia and stable TSH.
Past Medical History
Past Medical History: Asthma, HTN, Hypothyroidism, Psychiatric (anxiety/depression, PTSD, ADHD, bipolar disorder ) and Other (ETOH hepatitis 2021, ETOH abusse, fatty liver, esophagitis/gastritis 2022, 2024 )
Past Surgical History: Other (skin graft to hand )
Social History
Tobacco: Vaping (with prior tobacco use )
Alcohol: Chronic Alcoholic (1/2 to 1 bottle vodka daily )
Drug: None
Living: With Roomate (roommate )
Employment: Not Employed
Family History
Family History: Other (mother and father with hx alcoholism)
Allergies / Home Medications
Allergy/AdvReac Type Severity Reaction Status Date / Time
No Known Allergies Allergy Verified 04/19/25 11:45
�Medication �Instructions �Recorded
levothyroxine 50 mcg tablet 50 mcg PO DAILY Thyroid 08/15/24
(Synthroid)
hydroxyzine HCl 50 mg tablet 50 mg PO Q6HPRN PRN anxiety 10/31/24
ondansetron 4 mg disintegrating 4 mg PO Q8HPRN PRN nausea/vomiting 10/31/24
tablet
prazosin 1 mg capsule 1 mg PO HSPRN PRN nightmares 10/31/24
sertraline 50 mg tablet 50 mg PO DAILY Mental Health 10/31/24
pantoprazole 40 mg tablet,delayed 40 mg PO BID 28 days #42 tabs 11/02/24
release (Protonix)
Review of Systems
-
History Source: Patient
Constitutional: Reports Fatigue
EENT: Reports No Symptoms
Respiratory: Reports No Symptoms
Cardiac: Reports No Symptoms
Abdomen/GI: Reports Abdominal Pain, Nausea and Vomiting
: Reports Difficulty Voiding (at times )
Musculoskeletal: Reports No Symptoms
Skin: Reports No Symptoms
Neurological: Reports Weakness and Other (improved from withdrawal symptoms )
Vital Signs
Temp Pulse Resp BP Pulse Ox
98.2 F 66 18 121/76 98
04/23/25 07:00 04/23/25 07:00 04/23/25 07:00 04/23/25 07:00 04/23/25 07:00
Physical Exam
Exam
General: Other (awake and cooperative )
HEENT: Normocephalic
Respiratory: Clear
Cardiac: Regular Rhythm
GI: Soft, Non Distended, Tender (pinpoint tenderness between umbilical area and epigastric area ) and Other (no guarding or rebound )
Musculoskeletal: No Clubbing and No Cyanosis
Skin: Warm and Dry
Neuro: Awake, Alert and AO x 3
Psych: Calm
Results
WBC 4.2 10^3/uL (4.8-10.8) L 04/23/25 06:22
Hgb 12.6 g/dL (12.0-16.0) 04/23/25 06:22
Hct 34.5 % (37.0-47.0) L 04/23/25 06:22
MCV 96.6 fL (81.0-99.0) 04/23/25 06:22
Plt Count 126 10^3/uL (130-400) L 04/23/25 06:22
Absolute Neuts (auto) 2.7 10^3/uL (1.4-6.5) 04/23/25 06:22
Sodium 136 mmol/L (135-145) 04/23/25 06:22
Potassium 4.4 mmol/L (3.5-5.1) D 04/23/25 06:22
Chloride 102 mmol/L (98-107) 04/23/25 06:22
Carbon Dioxide 27 mmol/L (22-30) 04/23/25 06:22
BUN 6 mg/dl (7-17) L 04/23/25 06:22
Creatinine 0.5 mg/dL (0.6-1.0) L 04/23/25 06:22
Calcium 8.6 mg/dl (8.4-10.2) 04/23/25 06:22
Total Bilirubin 0.4 mg/dl (0.2-1.3) 04/23/25 06:22
AST 118 U/L (14-36) H 04/23/25 06:22
ALT 100 U/L (0-35) H 04/23/25 06:22
Alkaline Phosphatase 74 U/L (38-126) 04/23/25 06:22
Lipase 356 U/L (23-300) H 04/22/25 07:56
Diagnostic Image Results:
04/23/25 US abdomen
Fatty liver, which is mildly enlarged
Abdomen otherwise normal in appearance
Prior GI Procedures:
EGD: 10/2024 katie VOSS Grade C reflux esophagitis with no bleeding with
probably healing Jamila Bone tear - no signs of
recent or active bleeding.
- Small hiatal hernia.
- Normal examined duodenum.
- No specimens collected.
EGD: [address]am with no active bleeding source, mild severe esophagitis without bleeding, congestion, nodularity and texture change in stomach and duodenitis bx with neg H pylori, some focal necrosis on esophageal bx neg fungal organism
seen
Colonoscopy: none
Assessment / Plan
-
Pt is a 40yo with hx anxiety/depression, bipolar disorder, HTN, asthma, PTSD, ADHD, fatty liver, ETOH abuse disorder, ETOH hepatitis, prior hematemesis, with multiple admission to ER and hospital for withdrawal. In 2022 she completed EGD with
Dr. Higginbotham with no active bleeding source, mild severe esophagitis without bleeding, congestion, nodularity and texture change in stomach and duodenitis bx with neg H pylori, some focal necrosis on esophageal bx neg fungal organism seen. She had
repeat EGD in 10/2024 with grade C esophagitis, probable healing MW tear, no active bleeding, small HH no specimens collected. She now presents with abdominal pain and ETOH withdrawal with drinking 1/2 bottle per day with nausea and vomiting with
difficulty tolerating liquids and solids. In review with patient she states she is feeling improved from withdrawal but still with abdominal pain. Pain in epigastric/periumbilical. Pain is constant but worse post prandial. She will also get
some urgency for stool after eating but pass soft stools. Pain is similar to admission in past and better after meals. She was unsure about wt loss. She currently denies odynophagia, dysphagia, but did have some nausea/vomiting prior to admission
with small amount of blood after vomiting several times. She also admits to stopping all medications several weeks prior to admission including PRN Omeprazole use. No hx colonoscopy in past. Labs since admission with low K now improved,
persistent LFT elevation, lipase 356, normal albumin, mild thrombocytopenia, leukopenia and stable TSH.
-abdominal pain worse post prandial
-hx prior severe esophagitis, gastritis
-ETOH abuse with withdrawal
-LFT elevation
-thrombocytopenia
-mild lipase elevation
other med problems:
-anxiety/depression/bipolar
-HTN
-asthma
-PTSD
-hx hand skin graft
PLAN:
etiology of epigastric pain related to gastritis with hx heavy ETOH use, gallbladder related with worsening symptoms post prandial and mild LFT/lipase elevation , mild pancreatitis vs other
check US abdomen in AM
cont PPI BID- discussed with patient to continued daily on discharge for 8 weeks
complete ETOH abstinence
continued withdrawal protocol
check INR to calculate DF with hx ETOH hepatitis in past and recent ETOH use
will review with Dr. Ruiz need for repeat EGD-- she has had 2 in last 2 years with similar findings and no current hematemesis with stable hbg
-
-
Thank you for consultation and allowing me to participate in the patient's care. Please call the quotation checker GI physician during the after hours with any questions or concerns.
[2025-04-23] MEDS: TYLENOL 650 MG PO (11:09)
--- NOTE | 2025-04-23 11:13 | W.PN.HOSP.TC ---
Today's Communication/Plan
-
GI consult
Assessment / Plan
Assessment / Plan
Gen -Awake, alert, NAD
HEENT-NC, AT, anicteric, clear oral mm
Neck-supple
CV-reg, no M, +S1/S2
Lungs-clear B/L
Abd-soft, mild left-sided periumbilical tenderness without guarding or rebound
Ext-no edema
Musculoskeletal-no cyanosis, clubbing
Skin-warm and dry
Neuro-grossly non-focal, minimal hand tremors
Psych-calm, cooperative
Alcohol withdrawal syndrome -continue phenobarbital taper. Continue diazepam as needed.
Alcohol use disorder -abstinence recommended. Appreciate psychiatry input. Patient wants to avoid rehab. She understands that she needs to abstain completely to improve her health.
Acute alcohol induced hepatitis -transaminases remain elevated. Bilirubin improved.
Hyponatremia -improved.
Hypokalemia -improved.
Hypomagnesemia - improved.
Hypophosphatemia -resolved. Can discontinue potassium phosphate.
Leukopenia/thrombocytopenia -appears chronic, possibly related to alcohol use. Hemoglobin normal.
Hematemesis prior to admission
GERD/history of esophagitis -esophagitis noted on EGD from October 2024. Noted healing Jamila-Bone tear.
-Resolved, continue PPI twice daily. She was not taking any meds prior to admission.
Still with lingering nausea and nonspecific abdominal discomfort after meals. Will consult GI.
High anion gap metabolic acidosis due to alcoholic/starvation ketosis
-Resolved status post sodium bicarb IV fluids
Anxiety and Depression -noncompliant with home medications. Psychiatry input noted.
Hypothyroidism -noncompliant with levothyroxine prior to admission. TSH normal.
-Continue with Levothyroxine as possible
Nicotine dependency
- Nicotine patch
Full code
Anticipated Discharge: 24 - 48 hours
Subjective/Interval History
-
Date of Service: April 23, 2025
Patient seen and examined. Complaining of abdominal discomfort after meals with loose stools. Mild nausea.
Objective Data
-
Labs:
Laboratory Results
04/23/25
06:22
WBC 4.2 L
Hgb 12.6
Hct 34.5 L
Plt Count 126 L
Sodium 136
Potassium 4.4 D
Chloride 102
Carbon Dioxide 27
BUN 6 L
Creatinine 0.5 L
Glucose 111 H
Calcium 8.6
Total Bilirubin 0.4
AST 118 H
ALT 100 H
Alkaline Phosphatase 74
Vital Signs:
Vital Signs
Temp Pulse Resp BP Pulse Ox
98.2 F 66 18 121/76 98
04/23/25 07:00 04/23/25 07:00 04/23/25 07:00 04/23/25 07:00 04/23/25 07:00
I&O
04/22/25 04/23/25 04/24/25
06:59 06:59 06:59
Intake Total 1240 / 1240 1140 / 1140 480 / 480
Balance 1240 / 1240 1140 / 1140 480 / 480
Review of Systems
-
History Source: Patient
All other systems: Reviewed and negative
[2025-04-23] MEDS: DILAUDID 0.25 MG IV ×3 (12:11→23:27)
[2025-04-23 15:00] VITALS: BP 110/64
--- NOTE | 2025-04-23 15:05 | CM ---
CM reviewed chart, care ongoing. GI consulted. Plan for ultrasound of abdomen. Will continue to follow for all discharge planning needs.
Plan; home no needs when stable.
[2025-04-23] MEDS: LOVENOX 40 MG SC (18:20)
[2025-04-23] MEDS: LUMINAL 32.4 MG PO (21:44)
--- NOTE | 2025-04-23 22:35 | W.PN.UPDATE ---
Update Note
Progress Note Update
pt seen for followup. still here due to nausea and abdominal pain, awaiting abd ultrasound. 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
interested in offer to start on naltrexone to help with that. has AA ap on phone.
[2025-04-23 23:20] VITALS: BP 112/81
[2025-04-23] MEDS: MELATONIN 5 MG PO (23:27)
[2025-04-24] MEDS: SYNTHROID 50 MCG PO (06:28)
[2025-04-24] MEDS: DILAUDID 0.25 MG IV ×3 (06:33→14:37)
[2025-04-24 07:46] VITALS: BP 116/77
[2025-04-24] MEDS: ZOLOFT 50 MG PO (08:39)
[2025-04-24] MEDS: VITAMIN B1 100 MG PO (08:39)
[2025-04-24] MEDS: LUMINAL 32.4 MG PO (08:39)
[2025-04-24] MEDS: FOLVITE 1 MG PO (08:39)
[2025-04-24] MEDS: NICODERM TRANSDERMAL 14 MG TRANSDERM (08:39)
[2025-04-24] MEDS: PROTONIX IV 40 MG IV (08:40)
[2025-04-24] MEDS: FLUSH (NSS) 1 FLUSH IV (08:40)
[2025-04-24] MEDS: NSS (PRESERVATIVE FREE) 10 ML IV (08:40)
[2025-04-24 09:37] LABS: Hematocrit 35.1 % (37.0-47.0); Hemoglobin 12.3 g/dL (12.0-16.0); Mean Corp Hgb Conc. 35.0 g/dL (33.0-37.0); Mean Corpuscular Volume 97.0 fL (81.0-99.0); Platelet Count 141 10^3/uL (130-400); Red Cell Dist. Width 11.7 % (11.5-14.5)
[2025-04-24 09:44] LABS: INR 0.84; PT 12.0 Sec (11.4-14.6)
--- NOTE | 2025-04-24 10:43 | W.PN.HOSP.TC ---
Today's Communication/Plan
-
Await LFTs
Possible discharge
Assessment / Plan
Assessment / Plan
Gen -Awake, alert, NAD
HEENT-NC, AT, anicteric, clear oral mm
Neck-supple
CV-reg, no M, +S1/S2
Lungs-clear B/L
Abd-soft, mild left-sided periumbilical tenderness without guarding or rebound
Ext-no edema
Musculoskeletal-no cyanosis, clubbing
Skin-warm and dry
Neuro-grossly non-focal, minimal hand tremors
Psych-calm, cooperative
Alcohol withdrawal syndrome -continue phenobarbital taper. Continue diazepam as needed.
Alcohol use disorder -abstinence recommended. Appreciate psychiatry input. Patient wants to avoid rehab. She understands that she needs to abstain completely to improve her health.
Start naltrexone 50 mg daily on discharge, discussed with psychiatry.
Acute alcohol induced hepatitis -labs pending for today. Viral hepatitis panel pending.
Hyponatremia -improved.
Hypokalemia -labs pending for today.
Hypomagnesemia - improved.
Hypophosphatemia -resolved. Can discontinue potassium phosphate.
Leukopenia/thrombocytopenia -appears chronic, possibly related to alcohol use. Hemoglobin normal.
Hematemesis prior to admission
GERD/history of esophagitis -esophagitis noted on EGD from October 2024. Noted healing Jamila-Bone tear.
-Resolved, continue PPI twice daily. She was not taking any meds prior to admission.
Still with lingering nausea and nonspecific abdominal discomfort after meals. GI input appreciated.
Abdominal ultrasound shows mild fatty liver, limited gallbladder assessment due to contracted state, no pericholecystic fluid, negative sonographic Grimes sign, no bile duct dilation.
High anion gap metabolic acidosis due to alcoholic/starvation ketosis
-Resolved status post sodium bicarb IV fluids
Anxiety and Depression -noncompliant with home medications. Psychiatry input noted.
Hypothyroidism -noncompliant with levothyroxine prior to admission. TSH normal.
-Continue with Levothyroxine
Nicotine dependency
- Nicotine patch
Full code
Dispo -discharge if okay with GI. Outpatient follow-up.
Anticipated Discharge: Today
Subjective/Interval History
-
Date of Service: April 24, 2025
Patient seen and examined. Feeling better overall but still with lingering mild abdominal pain. No nausea. Eager to go home today.
Objective Data
-
Labs:
Laboratory Results
04/24/25
08:57
WBC 3.6 L
Hgb 12.3
Hct 35.1 L
Plt Count 141
PT 12.0
INR 0.84
Sodium Pending
Potassium Pending
Chloride Pending
Carbon Dioxide Pending
BUN Pending
Creatinine Pending
Glucose Pending
Calcium Pending
Total Bilirubin Pending
AST Pending
ALT Pending
Alkaline Phosphatase Pending
Vital Signs:
Vital Signs
Temp Pulse Resp BP Pulse Ox
98.1 F 62 17 116/77 98
04/24/25 07:46 04/24/25 07:46 04/24/25 07:46 04/24/25 07:46 04/24/25 10:10
I&O
04/23/25 04/24/25 04/25/25
06:59 06:59 06:59
Intake Total 1140 / 1140 2880 / 2880
Balance 1140 / 1140 2880 / 2880
Review of Systems
-
History Source: Patient
All other systems: Reviewed and negative
--- NOTE | 2025-04-24 11:08 | W.PN.GI.CBS2 ---
Addendum entered and electronically signed by Mina Ruiz MD 04/24/25 11:32:
I saw and examined the patient.
The DIRECTOR CLINICAL DATA or PA's note was reviewed and I agree with the note.
Comment: Symptoms stable, slightly improved.
ABD soft mild tender
REC:
Symptoms likely due to EtOH with elevated lipase, LFTs.
She is agreeable to stopping EtOH
Cont PPI given hx esophagitis, MW tear
OP follow up and consider further work up if symptoms persist despite EtOH cessation.
OK for d/c
Original Note:
Today's Communication / Plan
-
etiology of epigastric pain related to gastritis with hx heavy ETOH use, less likely gallbladder related , mild pancreatitis but pancreas stable on EGD vs other
US as noted GB contracted but no fluid, neg grimes sign and no duct dilation
cont PPI BID x 4 weeks then daily on discharged
complete ETOH abstinence
OP follow up 6-8 weeks if pain continues consider EGD/CT
AM bili pending but DF low based on 04/23 labs with normal PT
message sent to arrange OP follow up appt
reviewed with Dr. Nic adam for discharge if chemistry stable
Assessment / Plan
-
Pt is a 40yo with hx anxiety/depression, bipolar disorder, HTN, asthma, PTSD, ADHD, fatty liver, ETOH abuse disorder, ETOH hepatitis, prior hematemesis, with multiple admission to ER and hospital for withdrawal. In 2022 she completed EGD with
Dr. Higginbotham with no active bleeding source, mild severe esophagitis without bleeding, congestion, nodularity and texture change in stomach and duodenitis bx with neg H pylori, some focal necrosis on esophageal bx neg fungal organism seen. She had
repeat EGD in 10/2024 with grade C esophagitis, probable healing MW tear, no active bleeding, small HH no specimens collected. She now presents with abdominal pain and ETOH withdrawal with drinking 1/2 bottle per day with nausea and vomiting with
difficulty tolerating liquids and solids. In review with patient she states she is feeling improved from withdrawal but still with abdominal pain. Pain in epigastric/periumbilical. Pain is constant but worse post prandial. She will also get
some urgency for stool after eating but pass soft stools. Pain is similar to admission in past and better after meals. She was unsure about wt loss. She currently denies odynophagia, dysphagia, but did have some nausea/vomiting prior to admission
with small amount of blood after vomiting several times. She also admits to stopping all medications several weeks prior to admission including PRN Omeprazole use. No hx colonoscopy in past. Labs since admission with low K now improved,
persistent LFT elevation, lipase 356, normal albumin, mild thrombocytopenia, leukopenia and stable TSH.
04/24 US abdomen
Mild fatty infiltration of the liver. Limited assessment of gallbladder secondary to contracted state. No pericholecystic fluid. Negative sonographic Grimes sign. No bile duct dilatation
-abdominal pain worse post prandial
-hx prior severe esophagitis, gastritis
-ETOH abuse with withdrawal
-LFT elevation
-fatty liver per US
-thrombocytopenia
-mild lipase elevation
other med problems:
-anxiety/depression/bipolar
-HTN
-asthma
-PTSD
-hx hand skin graft
PLAN:
etiology of epigastric pain related to gastritis with hx heavy ETOH use, less likely gallbladder related , mild pancreatitis but pancreas stable on EGD vs other
US as noted GB contracted but no fluid, neg grimes sign and no duct dilation
cont PPI BID x 4 weeks then daily on discharged
complete ETOH abstinence
OP follow up 6-8 weeks if pain continues consider EGD/CT
AM bili pending but DF low based on 04/23 labs with normal PT
message sent to arrange OP follow up appt
reviewed with Dr. Nic adam for discharge if chemistry stable
Subjective
Subjective
Date of Service: April 24, 2025
still with some abdominal pain, no stool
Objective
Data Reviewed
Laboratory Data:
Laboratory Results
04/24/25 08:57
Laboratory Results
PT 12.0 Sec (11.4-14.6) 04/24/25 08:57
INR 0.84 04/24/25 08:57
Phosphorus 2.6 mg/dl (2.5-4.5) 04/23/25 06:22
Magnesium 2.1 mg/dl (1.6-2.3) 04/23/25 06:22
Total Bilirubin 0.4 mg/dl (0.2-1.3) 04/23/25 06:22
AST 118 U/L (14-36) H 04/23/25 06:22
ALT 100 U/L (0-35) H 04/23/25 06:22
Alkaline Phosphatase 74 U/L (38-126) 04/23/25 06:22
Lipase 356 U/L (23-300) H 04/22/25 07:56
Vital Signs and I&O:
Vital Signs
Temp Pulse Resp BP Pulse Ox
98.1 F 62 17 116/77 98
04/24/25 07:46 04/24/25 07:46 04/24/25 07:46 04/24/25 07:46 04/24/25 10:10
I&O
04/23/25 04/24/25 04/25/25
06:59 06:59 06:59
Intake Total 1140 / 1140 2880 / 2880
Balance 1140 / 1140 2880 / 2880
Physical Exam
Physical Exam
HEENT: Anicteric and Moist mucous membranes
Cardiology: Normal Sinus Rhythm
Pulmonary: Clear
GI: Soft, Non Distended and Tender (mild without guarding )
Extremities: No Edema
Neuro: Non Focal
[2025-04-24 11:43] LABS: ALT (SGPT) 127 U/L (0-35); AST (SGOT) 122 U/L (14-36); Albumin 4.0 g/dl (3.5-5.0); Alkaline Phosphatase 61 U/L (38-126); Blood Urea Nitrogen 8 mg/dl (7-17); Calcium 9.4 mg/dl (8.4-10.2); Carbon Dioxide 27 mmol/L (22-30); Chloride 101 mmol/L (98-107); Estimated Creatinine Clearance > 125 ml/min; Glucose 93 mg/dl (70-99); Potassium 4.0 mmol/L (3.5-5.1); Sodium 134 mmol/L (135-145); Total Protein 6.2 g/dl (6.3-8.2); eGFR > 60.00
[2025-04-24] MEDS: KCL 20 MEQ PO (12:00)
--- NOTE | 2025-04-24 12:28 | W.DS.TRANS ---
DC Summary - Tie In Hand
-
Discharge Instructions:
Discharge Diagnosis/Procedures Alcohol use disorder, alcohol induced hepatitis,
electrolyte abnormalities
Diet Regular
Activity As tolerated
Driving Restrictions As prior to admission
Bathing Restrictions None
Instructions:
Stand-Alone Forms:
Changes to Home Medications: No
Discharge Medications:
DC Medications w/original date entered in [facility]
folic acid 1 mg tablet 1 mg PO DAILY #30 tabs 04/24/25
levothyroxine 50 mcg tablet (Synthroid) 50 mcg PO DAILY Thyroid #30 tabs 04/24/25
naltrexone 50 mg tablet 50 mg PO DAILY #30 tabs 04/24/25
ondansetron 4 mg disintegrating tablet 4 mg PO Q8HPRN PRN nausea/vomiting #10 tabs 04/24/25
pantoprazole 40 mg tablet,delayed release (Protonix) 40 mg PO BID 28 days #90 tabs 04/24/25
phenobarbital 32.4 mg tablet 32.4 mg PO TID #4 tabs 04/24/25
sertraline 50 mg tablet 50 mg PO DAILY Mental Health #30 tabs 04/24/25
thiamine mononitrate (vit B1) 100 mg tablet 100 mg PO BID #60 tabs 04/24/25
Home Medication Changes
Pending Results: No
--- NOTE | 2025-04-24 12:32 | CM ---
Chart reviewed. Patient will d/c home today
No CM needs at this time
Plan: Home, no needs
[2025-04-24 13:00] VITALS: BP 120/80
[2025-04-24 19:26] LABS: Hepatitis B Surface Antigen Negative (Negative)
[2025-04-24 19:41] LABS: Hepatitis A Antibody, Total Negative (Negative); Hepatitis C Antibody Negative (Negative)
== END 2025-04-24 15:48 | disposition home or self-care (01) | DRG 432 ==
LOC: 4 WEST ACU 15:13
PROVIDERS: Nurse Practitioner Adult Health; Physician Assistant Medical; Registered Nurse; ADMITTING PHYSICIAN Family Medicine; ATTENDING PHYSICIAN Hospitalist; CONSULT PHYSICIAN Psychiatry & Neurology Psychiatry; CONSULT PHYSICIAN Specialist; EMERGENCY PHYSICIAN Emergency Medicine
DX: K70.10 Alcoholic hepatitis without ascites (principal); K29.21 Alcoholic gastritis with bleeding; F10.239 Alcohol dependence with withdrawal, unspecified; E87.1 Hypo-osmolality and hyponatremia; E87.20 Acidosis, unspecified; E03.9 Hypothyroidism, unspecified; E83.42 Hypomagnesemia; E87.6 Hypokalemia; E83.39 Other disorders of phosphorus metabolism; E86.0 Dehydration; D72.819 Decreased white blood cell count, unspecified; D69.6 Thrombocytopenia, unspecified; F43.10 Post-traumatic stress disorder, unspecified; F31.9 Bipolar disorder, unspecified; I10 Essential (primary) hypertension; J45.909 Unspecified asthma, uncomplicated; F41.9 Anxiety disorder, unspecified; F17.290 Nicotine dependence, other tobacco product, uncomplicated; F34.1 Dysthymic disorder; K21.9 Gastro-esophageal reflux disease without esophagitis; K76.0 Fatty (change of) liver, not elsewhere classified; Z79.890 Hormone replacement therapy; Z79.899 Other long term (current) drug therapy
CPT/HCPCS: 76700; 80053; 80306; 80307; 81003; 82040; 82077; 82784; 82805; 83516; 83605; 83690; 83735; 84100; 84443; 84703; 85025; 85027; 85610; 86231; 86704; 86705; 86706; 86708; 86709; 86803; 87340; 96365; 96375; 99291

== ENCOUNTER 2025-07-11 21:20 | Inpatient (IN) | payer OTHER, SELFPAY ==
[2025-07-11 17:22] VITALS: BP 143/107
[2025-07-11 17:57] VITALS: BMI 28.9
[2025-07-11 17:58] LABS: Hematocrit 43.2 % (37.0-47.0); Hemoglobin 15.4 g/dL (12.0-16.0); Mean Corp Hgb Conc. 35.6 g/dL (33.0-37.0); Mean Corpuscular Volume 92.7 fL (81.0-99.0); Platelet Count 205 10^3/uL (130-400); Red Cell Dist. Width 12.7 % (11.5-14.5)
[2025-07-11 18:24] LABS: ALT (SGPT) 54 U/L (0-35); AST (SGOT) 65 U/L (14-36); Albumin > 6.0 g/dl (3.5-5.0); Alkaline Phosphatase 95 U/L (38-126); Blood Urea Nitrogen 11 mg/dl (7-17); Calcium 9.6 mg/dl (8.4-10.2); Carbon Dioxide 7 mmol/L (22-30); Chloride 95 mmol/L (98-107); Estimated Creatinine Clearance 87 ml/min; Glucose 256 mg/dl (70-99); Potassium 4.9 mmol/L (3.5-5.1); Sodium 137 mmol/L (135-145); Total Protein 10.1 g/dl (6.3-8.2); eGFR > 60.00
[2025-07-11] MEDS: ATIVAN 2 MG IV (18:24)
[2025-07-11] MEDS: PROTONIX IV 80 MG IV (18:24)
[2025-07-11] MEDS: NSS 1000 IV (18:26)
[2025-07-11 18:30] LABS: Nucleated Red Blood Cells % 0 %
[2025-07-11 18:44] LABS: Lipase 114 U/L (23-300)
[2025-07-11] MEDS: NICODERM TRANSDERMAL 14 MG TRANSDERM (18:57)
--- NOTE | 2025-07-11 19:32 | ED.GENMED ---
History of Present Illness
General
Chief Complaint: Withdrawal Symptoms
Source: patient
Time Seen by Provider: 07/11/25 18:11
History of Present Illness
History of Present Illness:
Note:
CHIEF COMPLAINT(S)
Alcohol withdrawal and gastrointestinal discomfort.
HISTORY OF PRESENT ILLNESS
The patient is a 40-year-old female who has been experiencing gastrointestinal discomfort, primarily in the lower abdomen, which she describes as a common occurrence during previous drinking episodes. She reports spending the entire night on the
toilet due to vomiting, which may be contributing to her abdominal pain. Her symptoms started earlier today, and she associates them with her recent alcohol consumption. She admits to drinking vodka and mentions that she has relapsed into drinking
recently after a period of abstinence since April. Furthermore, the patient reports feeling nervous and tremulous. She has a history of attempting rehabilitation to abstain from alcohol but has not succeeded.
She also reports dandruff affecting her entire scalp, which she acknowledges may not be addressed during this emergency visit.
The patient admits having no local family to assist her. She denies any allergies to medications.
SOCIAL HISTORY
The patient reports a history of alcohol consumption, specifically vodka. She mentions previous attempts at rehabilitation for alcohol use but has relapsed. She does not have local family support.
REVIEW OF SYSTEMS
- Gastrointestinal: Vomiting and abdominal pain, specifically in the lower abdomen.
- Integumentary: Dandruff affecting the entire scalp.
- Neurological: Tremulousness reported.
- Psychiatric: History of alcohol use disorder and attempts at rehabilitation without continued success.
PHYSICAL EXAM
General: Alert, no acute distress but appears tremulous.
Cardiovascular: Regular heartbeat, tachycardic.
Respiratory: Respirations are non-labored.
Gastrointestinal: Abdomen is tender with discomfort noted in the lower region as described by the patient.
Neurological: Alertness noted; tremulousness observed.
Extremities: No cyanosis, no edema, warm and well-perfused
PLAN
- Initiate intravenous fluids to manage dehydration from vomiting.
- Administer medications to alleviate nausea and assess effectiveness.
- Discuss the potential need for additional pain management.
- Monitor laboratory results, including checking serum lipase, to evaluate the cause of the gastrointestinal symptoms.
- Encourage patient to consult with mental health specialists, such as a psychiatrist, for long-term management of alcohol use disorder.
DIFFERENTIAL DIAGNOSIS
The Differential Diagnosis includes, in no particular order and is not limited to:
1. Alcohol withdrawal syndrome
2. Acute pancreatitis
3. Gastritis
4. Gastroenteritis
5. Hepatic enlargement
6. Jamila-Bone tear due to persistent vomiting
7. Dandruff (Seborrheic dermatitis)
8. Anxiety disorder with physical manifestations
9. Electrolyte imbalances due to vomiting
10. Peptic ulcer disease
Disposition:
SUMMARY OF ENCOUNTER
The patient is a 40-year-old female who presented to the emergency department with intractable vomiting related to alcohol withdrawal. She reports consuming a large bottle of vodka daily. Previous records, including a discharge summary from
April 2025, indicate a history of alcohol withdrawal. Upon examination, the patient was found to be hypertensive and tachycardic. Laboratory results revealed a white blood cell count of 14,000, normal hemoglobin and platelet counts, marked
metabolic acidosis with a bicarbonate of 7, and an anion gap of 35. The patient is also hyperglycemic with a glucose level of 256 mg/dL, with slightly elevated AST and ALT levels. The clinical presentation is suggestive of volume depletion and
alcohol ketoacidosis as the cause of the metabolic acidosis.
PLAN
- Admit the patient for further management of alcohol withdrawal and metabolic acidosis.
- Initiate intravenous fluids to address volume depletion and correct acidosis.
- Administer medications as needed for symptom control, particularly for nausea.
- Continuously monitor the patients vital signs and laboratory values, especially blood glucose levels and electrolyte balance.
- Encourage consultation with mental health services for long-term alcohol use disorder management.
INDEPENDENT REVIEW OF LABS AND INTERPRETATION OF TESTS
My independent review of CBC indicates a white blood cell count of 14,000, suggesting a possible inflammatory or stress response.
My independent review of BMP indicates marked metabolic acidosis with a bicarbonate level of 7 and an anion gap of 35, likely due to alcohol ketoacidosis.
My independent review of CMP reveals hyperglycemia with a glucose level of 256 mg/dL and slightly elevated AST and ALT levels, which may be related to alcohol consumption.
FOLLOW-UP INSTRUCTIONS
The patient should be closely monitored post-discharge with a follow-up in a primary care clinic to assess recovery from alcohol withdrawal and address any ongoing concerns related to alcohol use disorder.
MEDICATION RECONCILIATION
- Administer intravenous fluids for hydration and correction of metabolic acidosis.
- Prescribe medications for nausea control as necessary.
MEDICAL DECISION MAKING
- Number and Complexity of Problems Addressed: Chronic conditions affecting care: history of alcohol use disorder and associated withdrawal complications.
Differential Diagnosis includes:
1. Alcohol withdrawal syndrome
2. Acute pancreatitis
3. Gastritis
4. Gastroenteritis
5. Hepatic enlargement
6. Jamila-Bone tear due to persistent vomiting
7. Dandruff (Seborrheic dermatitis)
8. Anxiety disorder with physical manifestations
9. Electrolyte imbalances due to vomiting
10. Peptic ulcer disease
- Data:
Category 1: Tests and documents
- I reviewed the previous records, including the discharge summary from April 2025, which indicate the patient�s history of alcohol withdrawal.
- Laboratory tests reviewed include a white blood cell count of 14,000, marked metabolic acidosis with a bicarbonate of 7, anion gap of 35, and hyperglycemia with a glucose level of 256 mg/dL.
- Risk:
Consideration of Admission/Observation: Escalation of care including admission was considered due to the complexity and risk of the patients presenting complaints, exam findings, and underlying comorbidities. However, I believe the patient is safe
for inpatient management given the work-up does not reveal any acute life-threatening processes, and symptoms are controlled upon reevaluation.
DIAGNOSIS
- Alcohol withdrawal syndrome (ICD-10: F10.239)
- Alcohol ketoacidosis (ICD-10: E87.2)
- Metabolic acidosis (ICD-10: E87.2)
- Hypertension (ICD-10: I10)
Past History
Past History
ED Past Medical History: Asthma, HTN, Hypothyroidism and Psychiatric (Anxiety, depression, alcohol abuse, PTSD< ADHD)
ED Past Surgical History: None
Social History
Tobacco: Vaping (Former Cig smoker)
Alcohol: Chronic alcoholic (Daily bottle of Vodka)
Drug: None
Personal:
Living: with roommate
Employment: Employed
Phy Exam
Physical Exam
Physical Exam:
.
Course
Orders/Labs/Results
Orders:
Orders
07/11/25 17:37
Alcohol Urgent
Complete Blood Count/With Diff Urgent
Comprehensive Metabolic Panel Urgent
Lipase Urgent
Magnesium Urgent
Comment: ADD ON
07/11/25 18:21
Add On- LAB Urgent
Tests Added?: lipase
0.9% Sodium Chloride 1000 ml [Nss] 1,000 ml IV BOLUS
Lorazepam [Ativan] 2 mg IV NOW STA
Pantoprazole [Protonix IV] 80 mg IV NOW STA
07/11/25 18:56
Nicotine [Nicoderm Transdermal] 14 mg .ROUTE .STK-MED ONE
07/11/25 19:30
Add On- LAB Urgent
Tests Added?: magnesium
07/11/25 20:00
0.9% Sodium Chloride 1000 ml [Nss] 1,000 ml Mvi, Adult [Multivitamin] 10 ml Thiamine Injection 100 mg IV 125 mls/hr
07/12/25 08:00
Nicotine [Nicoderm Transdermal] 14 mg TRANSDERM DAILY
Abnormal Lab Results
07/11/25
17:37
WBC 14.1 H 10^3/uL
(4.8-10.8)
MCH 33.0 H pg
(27.0-31.0)
Abs Immat Gran (auto) 0.1 H 10^3/uL
(0-0.05)
Absolute Neuts (auto) 12.9 H 10^3/uL
(1.4-6.5)
Absolute Lymphs (auto) 0.4 L 10^3/uL
(1.2-3.4)
Neutrophils % 91.3 H %
(42.2-75.2)
Lymphocytes % 3.1 L %
(20.5-51.1)
Chloride 95 L mmol/L
(98-107)
Carbon Dioxide 7 L* mmol/L
(22-30)
Glucose 256 H mg/dl
(70-99)
Total Bilirubin 1.6 H mg/dl
(0.2-1.3)
AST 65 H U/L
(14-36)
ALT 54 H U/L
(0-35)
Total Protein 10.1 H g/dl
(6.3-8.2)
Albumin > 6.0 H g/dl
(3.5-5.0)
07/11/25 17:37
07/11/25 17:37
Vital Signs
Initial and Last Documented VS:
Initial Vital Signs
Temp Pulse BP Pulse Ox
98.9 F 122 143/107 92
07/11/25 17:22 07/11/25 17:22 07/11/25 17:22 07/11/25 17:22
Last Documented Vital Signs
Temp Pulse Resp BP Pulse Ox
98.9 F 111 20 143/107 99
07/11/25 17:22 07/11/25 19:15 07/11/25 19:24 07/11/25 17:22 07/11/25 19:34
*Pulse Oximetry
SaO2: 99
Oxygen Mode of Delivery: Room air
Patient hypoxic: no
*Lead Installer Interpretation
Rate: tachycardiac
Interpretation: abnormal
Rhythm: sinus
*Critical Care Note
Total Time (30-74mins, 75-104mins- exclusive of procedures): 35 minutes
ED Attending Note
-
Portions of this chart may have been created with voice recognition software.� Occasional wrong word or��sound alike� substitutions may have occurred due to the inherent limitations of voice recognition software.
Discharge Plan
Departure
Patient Disposition: Admit
Date of Disposition: 07/11/25
Time of Disposition: 19:35
Admit to: Telemetry
Presentation/result/management discussed w/ accepting MD/DO: Hospitalist
Discharge Problem:
acute alcohol withdrawal, Alcoholic ketoacidosis, Acute hyperglycemia
Prescriptions:
No Action
folic acid 1 mg Tablet
1 mg PO DAILY Qty: 30 0RF
thiamine mononitrate (vit B1) 100 mg Tablet
100 mg PO BID Qty: 60 0RF
levothyroxine [Synthroid] 50 mcg Tablet
50 mcg PO DAILY Qty: 30 0RF
pantoprazole [Protonix] 40 mg tablet,delayed release (DR/EC)
40 mg PO BID 28 Days Qty: 90 0RF
Rx Instructions:
Twice Daily for 4 weeks, then Daily
ondansetron 4 mg Tablet,Disintegrating
4 mg PO Q8HPRN PRN (Reason: nausea/vomiting) Qty: 10 0RF
sertraline 50 mg Tablet
50 mg PO DAILY Qty: 30 0RF
naltrexone 50 mg tablet
50 mg PO DAILY Qty: 30 0RF
Referrals:
UNKNOWN - PT DOES,NOT KNOW [Family Provider]
Interventions
Interventions:
*Risk Screen - Suicide Last Done: 07/11/25 17:22
*General Assessment Last Done: 07/11/25 17:22
*Neglect/Abuse Screening Last Done: 07/11/25 17:22
*ED COVID-19 Vaccine History Last Done: 07/11/25 19:24
*ED Influenza Vaccine History Last Done: 07/11/25 19:24
[facility] Fall Risk Assessment Tool Last Done: 07/11/25 17:09
ED- Neurological Assessment Last Done: 07/11/25 18:14
ED-Psychological Assessment Last Done: 07/11/25 18:14
Discharge Date and Time
Print Language: SETSWA[place]
[2025-07-11] MEDS: MULTIVITAMIN 1011 ML IV (20:00)
[2025-07-11] MEDS: MULTIVITAMIN 1011 MG IV (20:00)
[2025-07-11 20:05] LABS: Magnesium 1.8 mg/dl (1.6-2.3)
[2025-07-11 20:06] VITALS: BP 158/107
--- NOTE | 2025-07-11 20:40 | HPS.HSE ---
Addendum entered and electronically signed by Brenden Guzman MD 07/11/25 21:04:
6. Low CO2 with high glucose. likely dehydration and stress reaction, less likely to be ketoacidosis.
Check BMP after fluid bolus
If not improving, workup and treat for ketoacidosis
Original Note:
Family Physician
-
Family Physician: NOT KNOW UNKNOWN - PT DOES
Chief Complaint
-
Vomitting
History of Present Illness
40-year-old woman comes in with gastrointestinal discomfort, strongest in the lower abdomen, which she describes as a common during her drinking episodes. She has spent the entire night on the toilet from vomiting. Her symptoms started earlier
today, She drinks vodka. She reports feeling nervous and tremulous. She has a history of multiple attempts at rehabilitation but has not succeeded. She has had multiple past admits for alcohol withdrawal.
Medical History
Past Medical History
Past Medical History: Reports Other
Additional Past Medical History:
Alcohol abuse
Alcohol dependence
Essential HTN
Alcoholic hepatitis
Anxiety
depression
Hypothyroidism
Past Surgical History: Reports None
Social History
Tobacco: Vaping
Alcohol: Chronic Alcoholic
Drug: None
Living: With Family
Family History
Family History: Not pertinent
Allergies / Home Medications
Allergies reflects when Allergies were last updated in [facility].
Home Medications with original date entered in [facility]
Allergy/Medication List:
Allergies
Allergy/AdvReac Type Severity Reaction Status Date / Time
No Known Allergies Allergy Verified 07/11/25 17:21
Home Medications
folic acid 1 mg tablet 1 mg PO DAILY #30 tabs 04/24/25
levothyroxine 50 mcg tablet (Synthroid) 50 mcg PO DAILY Thyroid #30 tabs 04/24/25
naltrexone 50 mg tablet 50 mg PO DAILY #30 tabs 04/24/25
ondansetron 4 mg disintegrating tablet 4 mg PO Q8HPRN PRN nausea/vomiting #10 tabs 04/24/25
pantoprazole 40 mg tablet,delayed release (Protonix) 40 mg PO BID 28 days #90 tabs 04/24/25
sertraline 50 mg tablet 50 mg PO DAILY Mental Health #30 tabs 04/24/25
thiamine mononitrate (vit B1) 100 mg tablet 100 mg PO BID #60 tabs 04/24/25
Review of Systems
-
History Source: Patient
A 12 point ROS was completed and negative except as noted: Yes
Abdomen/GI: Reports Abdominal Pain, Nausea and Vomiting
Psych: Reports Depression and Anxiety
Physical Exam
Vital Signs
Vital Signs
Temp Pulse Resp BP Pulse Ox
98.9 F 99 20 158/107 98
07/11/25 17:22 07/11/25 20:36 07/11/25 20:36 07/11/25 20:06 07/11/25 20:36
Physical Exam
General: Well Developed, Well Nourished, No Apparent Distress, Comfortable and Conversant
HEENT: NormoCephalic, Moist mucous membranes, Nose Appears Normal and Ears Appear Normal
Respiratory: Clear
Cardiac: S1/S2 and Regular Rhythm
GI: Soft, Non Distended and Tender
Musculoskeletal: No Clubbing, No Cyanosis and No Edema
Skin: Warm and Dry; No Rash
Neuro: Awake, Alert and Oriented
Psych: Calm
Laboratory Results
-
07/11/25 17:37
07/11/25 17:37
Laboratory Results
Total Bilirubin 1.6 mg/dl (0.2-1.3) H 07/11/25 17:37
AST 65 U/L (14-36) H 07/11/25 17:37
ALT 54 U/L (0-35) H 07/11/25 17:37
Alkaline Phosphatase 95 U/L (38-126) 07/11/25 17:37
Lipase 114 U/L (23-300) 07/11/25 17:37
Data Reviewed
-
Lab Data: Labs Reviewed by me
Impression/Plan
-
IMPRESSION:
40 woman with alcohol withdrawal, vomiting and abd pain. Significant data:
WBC 14.1
CO2 7
Gluc 256
TB 1.6
AST 65
ALT 54
Lipase 114
PLAN:
1. Alcohol WD - acute, high risk of developing DT
ETOH WD protocol with benzos
2. Chronic alcoholism
Continue naltrexone
3. Alcoholic hepatitis
Follow labs
4. Vomitting and probable dehydration
IV fluids
Zofran
5. High WBC - likely stress reaction
Follow in am
Full code
VCD for DVTp
--- NOTE | 2025-07-11 22:00 | PTCARENOTE ---
Pt. admitted from [facility] AAO x 3, IVF's infusing, ST on monitor, bed alarm intact, possible fall risk due to ETOH, call gomez within reach.
[2025-07-11 22:40] VITALS: BMI 27.9
[2025-07-11 23:00] VITALS: BP 141/97
[2025-07-11] MEDS: ZOFRAN 4 MG IV (23:21)
[2025-07-12] MEDS: TORADOL 15 MG IV ×2 (01:11→21:31)
[2025-07-12 03:00] VITALS: BP 119/86
[2025-07-12] MEDS: NSS 1000 IV ×3 (04:12→20:24)
--- NOTE | 2025-07-12 04:30 | PTCARENOTE ---
Pt. started having an itchy rash on both hands, notified [facility], ordered Benadryl for pt., will continue to monitor pt. status.
[2025-07-12] MEDS: BENADRYL 25 MG PO (04:49)
[2025-07-12] MEDS: SYNTHROID 50 MCG PO (05:19)
[2025-07-12 07:00] VITALS: BP 108/70
[2025-07-12] MEDS: NICODERM TRANSDERMAL 14 MG TRANSDERM (08:17)
[2025-07-12] MEDS: PROTONIX 40 MG PO ×2 (08:17→20:24)
[2025-07-12] MEDS: REVIA PO ×2 (08:18→08:43)
[2025-07-12] MEDS: THIAMINE INJECTION 200 MG IV ×2 (08:18→20:24)
[2025-07-12] MEDS: FOLVITE 1 MG PO (08:18)
[2025-07-12] MEDS: ZOLOFT 50 MG PO (08:18)
[2025-07-12 08:24] LABS: Glucose - Point of Care 89 mg/dl (70-99)
[2025-07-12] MEDS: ZOFRAN 4 MG IV ×2 (08:32→20:30)
--- NOTE | 2025-07-12 09:33 | CM ---
referral to [facility]; [facility] to follow and see patient.
[2025-07-12 09:39] LABS: Hematocrit 34.3 % (37.0-47.0); Hemoglobin 12.4 g/dL (12.0-16.0); Mean Corp Hgb Conc. 36.2 g/dL (33.0-37.0); Mean Corpuscular Volume 91.5 fL (81.0-99.0); Red Cell Dist. Width 12.6 % (11.5-14.5)
[2025-07-12 10:10] LABS: Platelet Count 140 10^3/uL (130-400)
[2025-07-12 10:49] LABS: ALT (SGPT) 38 U/L (0-35); AST (SGOT) 38 U/L (14-36); Albumin 4.8 g/dl (3.5-5.0); Alkaline Phosphatase 62 U/L (38-126); Blood Urea Nitrogen 15 mg/dl (7-17); Calcium 8.9 mg/dl (8.4-10.2); Carbon Dioxide 18 mmol/L (22-30); Chloride 101 mmol/L (98-107); Estimated Creatinine Clearance 110 ml/min; Glucose 91 mg/dl (70-99); Lipase 238 U/L (23-300); Magnesium 1.7 mg/dl (1.6-2.3); Potassium 4.0 mmol/L (3.5-5.1); Sodium 133 mmol/L (135-145); Total Protein 7.6 g/dl (6.3-8.2); eGFR > 60.00
[2025-07-12] MEDS: ATIVAN 1 MG PO (10:52)
--- NOTE | 2025-07-12 10:55 | W.PN.HOSP.TC ---
Today's Communication/Plan
-
IVF and MSA protocol
Assessment / Plan
Assessment / Plan
Physical exam:
General: Acutely ill
HEENT: Normocephalic, Atraumatic and Dry Mucous Membranes
Respiratory: Clear to Auscultation; Negative Wheezes, Rales or Rhonchi
Cardiac: Regular Rhythm and S1/S2
GI: Soft, Nontender and Nondistended
Musculoskeletal: No Clubbing, No Cyanosis and No Edema
Neuro: Awake, Alert and Oriented, no neurodeficits, tremors present.
Psych: Anxious
A/P:
1. Alcohol WD - acute, high risk of developing DT
ETOH WD protocol with benzos
2. Chronic alcoholism
Continue naltrexone
3. Alcoholic hepatitis
Follow labs
4. Vomitting and probable dehydration
IV fluids
Zofran
PPI
Add Sucralfate
5. High WBC - likely stress reaction
Trending down
6. Alcoholic and Starvation Metabolic Acidosis
Resolving with IVF- to continue
Full code
VCD for DVTp
Total time spent on today's encounter was 36 minutes which included time spent in counseling the patient/family regarding diagnosis and treatment plan as listed above, goals of care, and symptom management. Case was discussed with nursing staff,
specialists, and care coordinators/case management. All labs and imaging personally reviewed by me. Remainder the time spent in detailed review of previous records, lab data, imaging, and other medical provider documentation.
Anticipated Discharge: 24 - 48 hours
Subjective/Interval History
-
Date of Service: July 12, 2025
Patient still having n/v and abd discomfort and tremors but overall feels better
Objective Data
-
Labs:
Laboratory Results
07/11/25 07/12/25
23:00 08:54
WBC 8.2
Hgb 12.4
Hct 34.3 L
Plt Count 140 D
Sodium Cancelled 133 L
Potassium Cancelled 4.0
Chloride Cancelled 101
Carbon Dioxide Cancelled 18 L
BUN Cancelled 15
Creatinine Cancelled 0.7
Glucose Cancelled 91
Calcium Cancelled 8.9
Total Bilirubin 1.8 H
AST 38 H
ALT 38 H
Alkaline Phosphatase 62
Vital Signs:
Vital Signs
Temp Pulse Resp BP Pulse Ox
99.6 F 112 16 108/70 96
07/12/25 03:00 07/12/25 07:00 07/12/25 07:00 07/12/25 07:00 07/12/25 07:00
I&O
07/11/25 07/12/25 07/13/25
06:59 06:59 06:59
Intake Total 1680 / 1680
Balance 1680 / 1680
[2025-07-12 10:56] LABS: TSH 4.88 uIU/ml (0.47-4.68)
[2025-07-12 11:44] VITALS: BP 126/81
[2025-07-12] MEDS: MAGNESIUM SULFATE 50 IV (12:05)
[2025-07-12 12:07] LABS: Glucose - Point of Care 100 mg/dl (70-99)
[2025-07-12 12:36] VITALS: BMI 27.9
[2025-07-12 15:23] VITALS: BP 119/76
[2025-07-12 16:58] LABS: Glucose - Point of Care 83 mg/dl (70-99)
[2025-07-12] MEDS: CARAFATE 1 GRAM PO ×2 (17:23→21:32)
[2025-07-12 19:00] VITALS: BP 159/100
[2025-07-12 21:52] LABS: Glucose - Point of Care 97 mg/dl (70-99)
[2025-07-12 23:00] VITALS: BP 129/85
[2025-07-13] MEDS: ATIVAN 1 MG PO ×2 (01:28→08:18)
[2025-07-13 03:00] VITALS: BP 124/88
[2025-07-13] MEDS: NSS 1000 IV (04:37)
[2025-07-13] MEDS: SYNTHROID 50 MCG PO (05:34)
[2025-07-13 06:00] VITALS: BMI 28.8
[2025-07-13 07:00] VITALS: BP 133/89
[2025-07-13 07:03] LABS: Glucose - Point of Care 95 mg/dl (70-99)
[2025-07-13] MEDS: PROTONIX 40 MG PO ×2 (07:42→20:27)
[2025-07-13] MEDS: CARAFATE 1 GRAM PO ×4 (07:42→20:28)
[2025-07-13] MEDS: REVIA 50 MG PO (07:42)
[2025-07-13] MEDS: FOLVITE 1 MG PO (07:43)
[2025-07-13] MEDS: ZOLOFT 50 MG PO (07:43)
[2025-07-13] MEDS: NICODERM TRANSDERMAL 14 MG TRANSDERM (07:43)
[2025-07-13] MEDS: THIAMINE INJECTION 200 MG IV ×2 (07:44→20:28)
[2025-07-13] MEDS: TORADOL 15 MG IV (08:17)
[2025-07-13] MEDS: ZOFRAN 4 MG IV ×2 (08:17→14:23)
[2025-07-13 08:46] LABS: Hematocrit 34.0 % (37.0-47.0); Hemoglobin 12.2 g/dL (12.0-16.0); Mean Corp Hgb Conc. 35.9 g/dL (33.0-37.0); Mean Corpuscular Volume 91.4 fL (81.0-99.0); Platelet Count 113 10^3/uL (130-400); Red Cell Dist. Width 12.2 % (11.5-14.5)
--- NOTE | 2025-07-13 09:01 | W.PN.HOSP.TC ---
Today's Communication/Plan
-
Pain medications. CT of the abdomen pelvis today. Barium swallow tomorrow.
Assessment / Plan
Assessment / Plan
Physical exam:
General: Acutely ill
HEENT: Normocephalic, Atraumatic and Dry Mucous Membranes
Respiratory: Clear to Auscultation; Negative Wheezes, Rales or Rhonchi
Cardiac: Regular Rhythm and S1/S2
GI: Soft, tender and Nondistended
Musculoskeletal: No Clubbing, No Cyanosis and No Edema
Neuro: Awake, Alert and Oriented, no neurodeficits, tremors present.
Psych: Anxious
A/P:
Severe alcohol withdrawal:
Improving
Continue MSA protocol
Continue thiamine and folate
Discontinue naltrexone since she does not want to take anyway.
Continue IV fluids but change composition.
Patient agreeable to outpatient drug and alcohol rehab
Abdominal pain:
Likely alcohol gastritis, rule out pancreatitis, alcoholic hepatitis, rule out other intra-abdominal etiology.
Downgrade to full liquid diet today
Continue PPI
Continue sucralfate
Check INR to assess for discriminant factor
Also check lipase and slightly elevated at 472
Add some pain medications as need
Will do CT scan of the abdomen for further evaluation today
Dysphagia to solids:
Possible esophagitis but rule out other pathology
Will do a barium swallow-due to weekend scheduled, will have to be done tomorrow.
Downgrade to full liquid diet
Reassess clinically if improving by tomorrow
Hypokalemia:
Replete and trend
Hypomagnesemia:
Replete and trend
Hyponatremia:
Continue to trend
Elevated LFTs:
Related to alcohol
Leukocytosis:
Reactive
Back to normal
Hyperglycemia:
Reactive and resolved
Hemoglobin A1c 4.8
D/C insulin sliding
Severe metabolic acidosis related to starvation and alcohol:
Improving
Continue to monitor acidosis
Continue IV fluid and recheck in a.m.
Hypothyroidism:
Continue thyroid replacement
Thrombocytopenia:
Likely alcohol related
Monitor trend
DVT prophylaxis:
SCDs
CODE STATUS:
Full code
Total time spent on today's encounter was 52 minutes which included time spent in counseling the patient/family regarding diagnosis and treatment plan as listed above, goals of care, and symptom management. Case was discussed with nursing staff,
specialists, and care coordinators/case management. All labs and imaging personally reviewed by me. Remainder the time spent in detailed review of previous records, lab data, imaging, and other medical provider documentation.
Anticipated Discharge: Within 24 hours
Subjective/Interval History
-
Date of Service: July 13, 2025
Patient still having some abdominal discomfort on and off at this time on left lower quadrant rather than epigastric area. She is also having some dysphagia to solids. No vomiting today but still nauseous on and off. Afebrile.
Objective Data
-
Labs:
Laboratory Results
07/13/25
08:00
WBC 5.0
Hgb 12.2
Hct 34.0 L
Plt Count 113 L
Sodium Pending
Potassium Pending
Chloride Pending
Carbon Dioxide Pending
BUN Pending
Creatinine Pending
Glucose Pending
Calcium Pending
Total Bilirubin Pending
AST Pending
ALT Pending
Alkaline Phosphatase Pending
Vital Signs:
Vital Signs
Temp Pulse Resp BP Pulse Ox
99.2 F 94 16 124/88 97
07/13/25 03:00 07/13/25 03:00 07/13/25 03:00 07/13/25 03:00 07/13/25 03:00
I&O
07/12/25 07/13/25 07/14/25
06:59 06:59 06:59
Intake Total 1679
Balance 1679
[2025-07-13 09:11] LABS: ALT (SGPT) 40 U/L (0-35); AST (SGOT) 61 U/L (14-36); Albumin 4.3 g/dl (3.5-5.0); Alkaline Phosphatase 62 U/L (38-126); Blood Urea Nitrogen 6 mg/dl (7-17); Calcium 8.9 mg/dl (8.4-10.2); Carbon Dioxide 20 mmol/L (22-30); Chloride 99 mmol/L (98-107); Estimated Creatinine Clearance > 125 ml/min; Glucose 99 mg/dl (70-99); Magnesium 1.9 mg/dl (1.6-2.3); Potassium 3.0 mmol/L (3.5-5.1); Sodium 132 mmol/L (135-145); Total Protein 6.8 g/dl (6.3-8.2); eGFR > 60.00
[2025-07-13 10:28] LABS: INR 0.97; PT 13.0 Sec (11.4-14.6)
[2025-07-13 11:00] VITALS: BP 125/82
--- NOTE | 2025-07-13 11:03 | CM ---
Addendum entered by Natalya Xiao 07/13/25 15:55:
patient declined [facility] inpatient placement, liaison provided outpatient resources.
Original Note:
Patient seen at bedside on . Patient stated no one has been here from [facility]. CM will call again. Patient lives with roommates and plan is to return there when medically appropriate. patient has 2 children 13 y.o and a 9 y.o, and she has them
on the weekends and their father has them during the week. Currently her roommate and 2 neighbors are helping her out with her children when needed.Patient continues to verbalize that she wants to have supports at this time. Patient uses the [facility] in
[place] and her PCP is uncertain. CM will continue to follow for discharge planning needs.
Plan;. [facility] supports.
[2025-07-13 11:39] LABS: Glucose - Point of Care 116 mg/dl (70-99)
[2025-07-13 11:42] LABS: Lipase 472 U/L (23-300)
[2025-07-13] MEDS: ZOFRAN ODT (ORALLY DISINTEGRATING) 4 MG PO ×2 (12:21→20:43)
[2025-07-13] MEDS: DILAUDID 0.5 MG IV (12:50)
[2025-07-13 13:08] LABS: Glycohemoglobin (HgbA1c) 4.8 % (4.0-5.9)
[2025-07-13] MEDS: OMNIPAQUE 50 ML PO (13:58)
[2025-07-13] MEDS: KCL 40 MEQ PO ×2 (14:39→17:17)
[2025-07-13] MEDS: D5/0.9% with KCL 20 MEQ 1000 IV (14:54)
[2025-07-13 15:00] VITALS: BP 136/98
[2025-07-13 19:49] VITALS: BP 141/95
[2025-07-13] MEDS: DILAUDID 0.25 MG IV (20:42)
[2025-07-13] MEDS: ATIVAN 1 MG IV (20:42)
[2025-07-13 23:28] VITALS: BP 135/92
[2025-07-14] MEDS: D5/0.9% with KCL 20 MEQ 1000 IV ×2 (02:18→13:40)
[2025-07-14] MEDS: DILAUDID 0.25 MG IV (02:20)
[2025-07-14 03:28] VITALS: BP 124/90
[2025-07-14] MEDS: NICODERM TRANSDERMAL 14 MG TRANSDERM (05:57)
[2025-07-14] MEDS: SYNTHROID 50 MCG PO (05:57)
[2025-07-14 07:09] VITALS: BP 138/93
[2025-07-14] MEDS: CARAFATE 1 GRAM PO ×4 (07:22→21:11)
[2025-07-14] MEDS: PROTONIX 40 MG PO ×2 (07:22→21:11)
[2025-07-14] MEDS: ZOLOFT 50 MG PO (07:23)
[2025-07-14] MEDS: FOLVITE 1 MG PO (07:23)
[2025-07-14] MEDS: THIAMINE INJECTION 200 MG IV ×2 (07:23→21:11)
[2025-07-14] MEDS: ZOFRAN 4 MG IV (07:24)
[2025-07-14] MEDS: TORADOL 15 MG IV (07:35)
[2025-07-14 09:03] LABS: INR 0.99; PT 13.2 Sec (11.4-14.6)
[2025-07-14 09:12] LABS: Hematocrit 32.5 % (37.0-47.0); Hemoglobin 11.9 g/dL (12.0-16.0); Mean Corp Hgb Conc. 36.6 g/dL (33.0-37.0); Mean Corpuscular Volume 91.3 fL (81.0-99.0); Platelet Count 99 10^3/uL (130-400); Red Cell Dist. Width 12.3 % (11.5-14.5)
[2025-07-14 09:28] LABS: ALT (SGPT) 52 U/L (0-35); AST (SGOT) 77 U/L (14-36); Albumin 4.1 g/dl (3.5-5.0); Alkaline Phosphatase 61 U/L (38-126); Blood Urea Nitrogen < 2 mg/dl (7-17); Calcium 9.5 mg/dl (8.4-10.2); Carbon Dioxide 27 mmol/L (22-30); Chloride 100 mmol/L (98-107); Estimated Creatinine Clearance > 125 ml/min; Glucose 118 mg/dl (70-99); Magnesium 1.8 mg/dl (1.6-2.3); Potassium 3.5 mmol/L (3.5-5.1); Sodium 134 mmol/L (135-145); Total Protein 6.7 g/dl (6.3-8.2); eGFR > 60.00
[2025-07-14] MEDS: CARAFATE PO (11:12)
[2025-07-14] MEDS: BENTYL PO (11:12)
[2025-07-14] MEDS: ZOFRAN ODT (ORALLY DISINTEGRATING) 4 MG PO (11:16)
[2025-07-14] MEDS: BENTYL 10 MG PO ×3 (11:29→21:11)
[2025-07-14 11:30] VITALS: BP 128/89
--- NOTE | 2025-07-14 12:34 | W.PN.HOSP.TC ---
Addendum entered and electronically signed by Justus Painter MD 07/14/25 13:11:
Account Auditor (Clover Pastor RN) was present during my interview with the patient and physical exam.
Original Note:
Today's Communication/Plan
-
barium swallow in am
Trial of Maalox/Bentyl.
Added gabapentin
Assessment / Plan
Assessment / Plan
Impression:
40-year-old woman with history of alcohol use who came to the ER with gastrointestinal discomfort, strongest in the lower abdomen, which she describes as a common during her drinking episodes. She has spent the entire night on the toilet from
vomiting. Her symptoms started earlier the day of admission, She drinks vodka. She reports feeling nervous and tremulous. She has a history of multiple attempts at rehabilitation but has not succeeded. She has had multiple past admits for alcohol
withdrawal.
Started on alcohol withdrawal protocol, also history of dysphagia, CT abdomen pelvis negative-barium swallow ordered.
Assessment/plan
Severe alcohol withdrawal:
Improving
Continue MSA protocol
Continue thiamine and folate
Discontinue naltrexone since she does not want to take anyway.
Continue IV fluids but change composition.
Patient agreeable to outpatient drug and alcohol rehab
Abdominal pain:
Likely alcohol gastritis, rule out pancreatitis, alcoholic hepatitis, rule out other intra-abdominal etiology.
Downgrade to full liquid diet today
Continue PPI
Continue sucralfate
Check INR to assess for discriminant factor
Also check lipase and slightly elevated at 472
Add some pain medications as need
Will do CT scan of the abdomen for further evaluation today
Dysphagia to solids:
Possible esophagitis but rule out other pathology
Will do a barium swallow-due to weekend scheduled, will have to be done tomorrow.
Downgrade to full liquid diet
Reassess clinically if improving by tomorrow
Hypokalemia:
Repleted
Hypomagnesemia:
Replete and trend
Hyponatremia:
Continue to trend
Elevated LFTs:
Related to alcohol
Leukocytosis:
Reactive
Back to normal
Hyperglycemia:
Reactive and resolved
Hemoglobin A1c 4.8
D/C insulin sliding
Severe metabolic acidosis related to starvation and alcohol:
Improving
Continue to monitor acidosis
Continue IV fluid and recheck in a.m.
Hypothyroidism:
Continue thyroid replacement
Thrombocytopenia:
Likely alcohol related
Monitor trend
CODE STATUS: Full code
DVT prophylaxis: SCDs
Diet: Full liquid
Disposition: barium swallow in am
Trial of Maalox/Bentyl.
Added gabapentin
Total time spent on today's encounter was 52 minutes which included time spent in counseling the patient/family regarding diagnosis and treatment plan as listed above, goals of care, and symptom management. Case was discussed with nursing staff,
specialists, and care coordinators/case management. All labs and imaging personally reviewed by me. Remainder the time spent in detailed review of previous records, lab data, imaging, and other medical provider documentation.
Anticipated Discharge: 24 - 48 hours
Subjective/Interval History
-
Date of Service: July 14, 2025
Patient seen and examined at bedside, still complaining of on and off abdominal pain, denies any chest pain or shortness of breath, added Constipation.
Objective Data
-
Labs:
Laboratory Results
07/14/25
07:50
WBC 3.8 L
Hgb 11.9 L
Hct 32.5 L
Plt Count 99 L
PT 13.2
INR 0.99
Sodium 134 L
Potassium 3.5
Chloride 100
Carbon Dioxide 27
BUN < 2 L
Creatinine 0.5 L
Glucose 118 H
Calcium 9.5
Total Bilirubin 1.0
AST 77 H
ALT 52 H
Alkaline Phosphatase 61
Vital Signs:
Vital Signs
Temp Pulse Resp BP Pulse Ox
98.8 F 80 16 128/89 98
07/14/25 11:30 07/14/25 11:30 07/14/25 11:30 07/14/25 11:30 07/14/25 11:30
I&O
07/13/25 07/14/25 07/15/25
06:59 06:59 06:59
Intake Total 1969 4100 / 4100
Balance 1969 4100 / 4100
Physical Exam
-
General: Well Developed, Well Nourished, No Apparent Distress and Comfortable
HEENT: Normocephalic, Atraumatic, Moist Mucous Membranes, No Ptosis, PERRLA and Nose Appears Normal
Respiratory: Clear to Auscultation and Non Labored Respirations
Cardiac: Regular Rhythm and S1/S2
Breast: Deferred by me
GI: Soft, Nondistended, Normal Bowel Sounds and Tender (Mild epigastric tenderness)
Genito-urinary: No Costovertebral Tender
Musculoskeletal: No Clubbing, No Cyanosis and No Edema
Skin: Warm
Neuro: Awake, Alert, Oriented, AO x 3 and No Motor Deficits
Psych: Calm
Data Reviewed
-
Diagnostic Radiology: Image personally visualized and interpreted and Report Reviewed by me
CT Scan: Image personally visualized and interpreted and Report Reviewed by me
Ultrasound: Image personally visualized and interpreted and Report Reviewed by me
MRI: Image personally visualized and interpreted and Report Reviewed by me
Medical Tests (Nuc Med, Echo etc): Image personally visualized and interpreted and Report Reviewed by me
Labs: Labs Reviewed by me
Old Records: Reviewed
[2025-07-14] MEDS: ATIVAN 1 MG PO ×2 (13:49→21:46)
[2025-07-14 15:21] VITALS: BP 129/87
[2025-07-14] MEDS: NEURONTIN 100 MG PO ×2 (16:42→21:11)
[2025-07-14 19:00] VITALS: BP 108/76
[2025-07-14 23:00] VITALS: BP 110/78
[2025-07-15] MEDS: DILAUDID 0.25 MG IV (02:29)
[2025-07-15] MEDS: D5/0.9% with KCL 20 MEQ 1000 IV (02:50)
[2025-07-15 03:00] VITALS: BP 141/83
[2025-07-15] MEDS: SYNTHROID 50 MCG PO (06:16)
[2025-07-15 07:00] VITALS: BP 113/74
[2025-07-15] MEDS: BENTYL 10 MG PO ×2 (07:43→13:05)
[2025-07-15] MEDS: PROTONIX 40 MG PO (07:44)
[2025-07-15] MEDS: VITAMIN B1 100 MG PO (07:44)
[2025-07-15] MEDS: CARAFATE 1 GRAM PO ×2 (07:44→13:04)
[2025-07-15] MEDS: NEURONTIN 100 MG PO (07:44)
[2025-07-15] MEDS: NICODERM TRANSDERMAL 14 MG TRANSDERM (07:45)
[2025-07-15] MEDS: ZOLOFT 50 MG PO (07:45)
[2025-07-15] MEDS: FOLVITE 1 MG PO (07:45)
[2025-07-15] MEDS: TORADOL 15 MG IV (08:57)
[2025-07-15 09:01] LABS: Hematocrit 34.7 % (37.0-47.0); Hemoglobin 12.5 g/dL (12.0-16.0); Mean Corp Hgb Conc. 36.0 g/dL (33.0-37.0); Mean Corpuscular Volume 93.5 fL (81.0-99.0); Platelet Count 115 10^3/uL (130-400); Red Cell Dist. Width 12.4 % (11.5-14.5)
[2025-07-15 10:17] LABS: COVID-19 Antigen Negative (Negative)
[2025-07-15 10:18] LABS: Blood Urea Nitrogen < 2 mg/dl (7-17); Calcium 9.4 mg/dl (8.4-10.2); Carbon Dioxide 29 mmol/L (22-30); Chloride 101 mmol/L (98-107); Estimated Creatinine Clearance > 125 ml/min; Glucose 101 mg/dl (70-99); Potassium 3.5 mmol/L (3.5-5.1); Sodium 135 mmol/L (135-145); eGFR > 60.00
[2025-07-15 11:00] VITALS: BP 117/83
--- NOTE | 2025-07-15 12:38 | W.PN.HOSP.TC ---
Today's Communication/Plan
-
Discharge home today
Assessment / Plan
Assessment / Plan
Impression:
40-year-old woman with history of alcohol use who came to the ER with gastrointestinal discomfort, strongest in the lower abdomen, which she describes as a common during her drinking episodes. She has spent the entire night on the toilet from
vomiting. Her symptoms started earlier the day of admission, She drinks vodka. She reports feeling nervous and tremulous. She has a history of multiple attempts at rehabilitation but has not succeeded. She has had multiple past admits for alcohol
withdrawal.
Started on alcohol withdrawal protocol, also history of dysphagia, CT abdomen pelvis negative-barium swallow ordered.
Abdominal pain improved with Maalox/Bentyl/Toradol.
Started low-dose gabapentin.
Will be discharged on gabapentin, Bentyl, short-term Toradol.
Advised to follow-up with outpatient alcohol rehab.
Advised to follow-up with PCP, currently patient does not have PCP and advised to follow-up with [facility] .
Assessment/plan
Severe alcohol withdrawal:
Improving
Continue MSA protocol
Continue thiamine and folate
Discontinue naltrexone since she does not want to take anyway.
Continue IV fluids but change composition.
Patient agreeable to outpatient drug and alcohol rehab
Will be discharged on gabapentin
Abdominal pain:
Likely alcohol gastritis, rule out pancreatitis, alcoholic hepatitis, rule out other intra-abdominal etiology.
Downgrade to full liquid diet today
Continue PPI
Continue sucralfate
Check INR to assess for discriminant factor
Also check lipase and slightly elevated at 472
Add some pain medications as need
Will do CT scan of the abdomen for further evaluation today
Abdominal pain improved with Bentyl/Maalox/Toradol.
Will be discharged on these medications
Dysphagia to solids:
Possible esophagitis but rule out other pathology
Will do a barium swallow-due to weekend scheduled, will have to be done tomorrow.
07/15
Abdominal pain improved.
Tolerating diet with no nausea or vomiting.
Will be discharged today after barium swallow test
Hypokalemia:
Repleted
Hypomagnesemia:
Replete and trend
Hyponatremia:
Continue to trend
Elevated LFTs:
Related to alcohol
Leukocytosis:
Reactive
Back to normal
Hyperglycemia:
Reactive and resolved
Hemoglobin A1c 4.8
D/C insulin sliding
Severe metabolic acidosis related to starvation and alcohol:
Improving
Continue to monitor acidosis
Continue IV fluid and recheck in a.m.
Hypothyroidism:
Continue thyroid replacement
Thrombocytopenia:
Likely alcohol related
Monitor trend
CODE STATUS: Full code
DVT prophylaxis: SCDs
Diet: Full liquid
Disposition: Discharge home today
Total time spent on today's encounter was 52 minutes which included time spent in counseling the patient/family regarding diagnosis and treatment plan as listed above, goals of care, and symptom management. Case was discussed with nursing staff,
specialists, and care coordinators/case management. All labs and imaging personally reviewed by me. Remainder the time spent in detailed review of previous records, lab data, imaging, and other medical provider documentation.
Anticipated Discharge: Today
Subjective/Interval History
-
Date of Service: July 15, 2025
Leather Stitcher (Clover Pastor RN) was present during my interview with the patient and physical exam.
Patient seen and examined at bedside, denies any chest pain or shortness of breath, improved abdominal pain, no nausea, no vomiting, no diarrhea or constipation.
Objective Data
-
Labs:
Laboratory Results
07/15/25
08:13
WBC 3.5 L
Hgb 12.5
Hct 34.7 L
Plt Count 115 L
Sodium 135
Potassium 3.5
Chloride 101
Carbon Dioxide 29
BUN < 2 L
Creatinine 0.6
Glucose 101 H
Calcium 9.4
Vital Signs:
Vital Signs
Temp Pulse Resp BP Pulse Ox
99.3 F 88 16 117/83 97
07/15/25 11:00 07/15/25 11:00 07/15/25 11:00 07/15/25 11:00 07/15/25 11:00
I&O
07/14/25 07/15/25 07/16/25
06:59 06:59 06:59
Intake Total 4100 / 4100 300 / 300
Balance 4100 / 4100 300 / 300
Physical Exam
-
General: Well Developed, Well Nourished, No Apparent Distress and Comfortable
HEENT: Normocephalic, Atraumatic, Moist Mucous Membranes, No Ptosis, PERRLA and Nose Appears Normal
Respiratory: Clear to Auscultation and Non Labored Respirations
Cardiac: Regular Rhythm and S1/S2
Breast: Deferred by me
GI: Soft, Nondistended, Normal Bowel Sounds and Tender (improved epigastric tenderness)
Genito-urinary: No Costovertebral Tender
Musculoskeletal: No Clubbing, No Cyanosis and No Edema
Skin: Warm
Neuro: Awake, Alert, Oriented, AO x 3 and No Motor Deficits
Psych: Calm
[2025-07-15] MEDS: FLUZONE (6 mos+) 2025-2026 FORMULA 0.5 ML IM (13:06)
[2025-07-15] MEDS: ZOFRAN 4 MG IV (13:16)
--- NOTE | 2025-07-15 13:55 | W.DCSUMMARY ---
Discharge Summary
Discharge Data
Date of Admission: 07/11/25
Date of Discharge: 07/15/25
Total time spent discharging patient (in min): 40
-
Pending Results: No
Hospital Course
Hospital course
40-year-old woman with history of alcohol use who came to the ER with gastrointestinal discomfort, strongest in the lower abdomen, which she describes as a common during her drinking episodes. She has spent the entire night on the toilet from
vomiting. Her symptoms started earlier the day of admission, She drinks vodka. She reports feeling nervous and tremulous. She has a history of multiple attempts at rehabilitation but has not succeeded. She has had multiple past admits for alcohol
withdrawal.
Started on alcohol withdrawal protocol, also history of dysphagia, CT abdomen pelvis negative-barium swallow ordered.
Abdominal pain improved with Maalox/Bentyl/Toradol.
Started low-dose gabapentin.
Will be discharged on gabapentin, Bentyl, short-term Toradol.
Advised to follow-up with outpatient alcohol rehab.
Advised to follow-up with PCP, currently patient does not have PCP and advised to follow-up with [facility] at .
During hospitalization patient was treated from the following
Severe alcohol withdrawal:
Improving
Continue MSA protocol
Continue thiamine and folate
Discontinue naltrexone since she does not want to take anyway.
Continue IV fluids but change composition.
Patient agreeable to outpatient drug and alcohol rehab
Will be discharged on gabapentin
Abdominal pain:
Likely alcohol gastritis, rule out pancreatitis, alcoholic hepatitis, rule out other intra-abdominal etiology.
Downgrade to full liquid diet today
Continue PPI
Continue sucralfate
Check INR to assess for discriminant factor
Also check lipase and slightly elevated at 472
Add some pain medications as need
Will do CT scan of the abdomen for further evaluation today
Abdominal pain improved with Bentyl/Maalox/Toradol.
Will be discharged on these medications
Dysphagia to solids:
Possible esophagitis but rule out other pathology
Will do a barium swallow-due to weekend scheduled, will have to be done tomorrow.
07/15
Abdominal pain improved.
Tolerating diet with no nausea or vomiting.
Will be discharged today after barium swallow test
Hypokalemia:
Repleted
Hypomagnesemia:
Replete and trend
Hyponatremia:
Continue to trend
Elevated LFTs:
Related to alcohol
Leukocytosis:
Reactive
Back to normal
Hyperglycemia:
Reactive and resolved
Hemoglobin A1c 4.8
D/C insulin sliding
Severe metabolic acidosis related to starvation and alcohol:
Improving
Continue to monitor acidosis
Continue IV fluid and recheck in a.m.
Hypothyroidism:
Continue thyroid replacement
Thrombocytopenia:
Likely alcohol related
Monitor trend
CODE STATUS: Full code
DVT prophylaxis: SCDs
Diet: Full liquid
Disposition: Discharge home today
Total time spent on today's encounter was 40 minutes which included time spent in counseling the patient/family regarding diagnosis and treatment plan as listed above, goals of care, and symptom management. Case was discussed with nursing staff,
specialists, and care coordinators/case management. All labs and imaging personally reviewed by me. Remainder the time spent in detailed review of previous records, lab data, imaging, and other medical provider documentation.
Anticipated Discharge: Today
Discharge Plan
-
Patient Disposition: Home (Routine Discharge)
Discharge Diagnosis/Procedures: Severe alcohol withdrawal
Abdominal pain
Diet: As tolerated and Low Fiber
Activity: As tolerated
Referrals:
[facility] - in less than 1 week
Prescriptions:
New
dicyclomine 10 mg Capsule
10 mg PO QIDPRN PRN (Reason: abdominal pain) 30 Days Qty: 120 0RF
alum-mag hydroxide-simeth [Mag-Al Plus] 200-200-20 mg/5 mL Suspension
30 ml PO QIDPRN PRN (Reason: epigastric pain) Qty: 3000 0RF
gabapentin 100 mg Capsule
100 mg PO TID 14 Days Qty: 42 0RF
ketorolac 10 mg tablet
10 mg PO Q6H PRN (Reason: Pain) 5 Days Qty: 20 0RF
hydroxyzine pamoate 25 mg capsule
25 mg PO TID PRN (Reason: Anxiety) Qty: 30 0RF
Continued
folic acid 1 mg Tablet
1 mg PO DAILY Qty: 30 0RF
thiamine mononitrate (vit B1) 100 mg Tablet
100 mg PO BID Qty: 60 0RF
ondansetron 4 mg Tablet,Disintegrating
4 mg PO Q8HPRN PRN (Reason: nausea/vomiting) Qty: 10 0RF
naltrexone 50 mg tablet
50 mg PO DAILY Qty: 30 0RF
levothyroxine [Synthroid] 50 mcg Tablet
50 mcg PO DAILY Qty: 90 0RF
pantoprazole [Protonix] 40 mg tablet,delayed release (DR/EC)
40 mg PO BID 30 Days Qty: 90 0RF
Rx Instructions:
Twice Daily for 4 weeks, then Daily
sertraline 50 mg Tablet
50 mg PO DAILY Qty: 90 0RF
Discharge Orders:
Discharge Patient (As Directed); Ordered 07/15/25
Ordered By: Justus Painter
Discharge Date and Time
Print Language: TURKMEN
[2025-07-15 15:03] VITALS: BP 127/84
--- NOTE | 2025-07-15 15:11 | CM ---
CM reviewed chart, attempted to see patient, in bathroom.
Patient for d/c today- no needs.
CM will continue to follow.
Plan; home no needs
== END 2025-07-15 15:12 | disposition home or self-care (01) | DRG 897 ==
LOC: 4 WEST ACU 21:20
PROVIDERS: Hospitalist; ADMITTING PHYSICIAN Internal Medicine; ATTENDING PHYSICIAN General Practice; EMERGENCY PHYSICIAN Emergency Medicine
PROC: 3E02340 Introduction of Influenza Vaccine into Muscle, Percutaneous Approach (ICD-10-PCS; 2025-07-15)
DX: F10.239 Alcohol dependence with withdrawal, unspecified (principal); E87.29 Other acidosis; E87.1 Hypo-osmolality and hyponatremia; I10 Essential (primary) hypertension; Z87.891 Personal history of nicotine dependence; K70.10 Alcoholic hepatitis without ascites; E87.6 Hypokalemia; E83.42 Hypomagnesemia; E03.9 Hypothyroidism, unspecified; D69.6 Thrombocytopenia, unspecified; K29.20 Alcoholic gastritis without bleeding; Z23 Encounter for immunization; Z11.52 Encounter for screening for COVID-19
CPT/HCPCS: 74177; 74210; 80048; 80053; 82077; 82962; 83036; 83690; 83735; 84443; 85025; 85027; 85610; 87811; 90656; 96361; 96365; 96366; 96375; 99291; G0008; Q9967